=== PATIENT | male | born 1940 | race Caucasian/White ===

== ENCOUNTER 2023-06-30 16:24 | Inpatient (IN) ==
--- NOTE | 2023-06-30 16:29 | ED Triage Note ---
Date of Service June 30, 2023 Provider in Triage Author: Enid Préez History of Present Illness This patient was briefly evaluated while in triage. An abbreviated physical exam was performed. This patient is a 82-year-old Male who presents to the ED for evaluation lives at [facility], reportedly fell today was disoriented/confused per son has been having dizzy spells is on Xarelto for cardiac Physical Exam GENERAL: NAD, hard of hearing HEAD: NC/AT CARDIOVASCULAR: RRR RESPIRATORY: CTA ABDOMEN: BS x 4. Nontender to palpation. Initial orders for labs and / or imaging were placed and patient was placed in the waiting area until a bed is available. Please see further documentation for the full ED course.
--- NOTE | 2023-06-30 17:06 | CT Scan Report ---
HEAD CT NONCONTRAST CT DOSE: 1220.06 mGy.cm HISTORY: fall, head injury TECHNIQUE: Multiaxial CT images of the head were performed without the use of intravenous contrast. A utomated exposure control was utilized for this study. A dose lowering technique was utilized adheri ng to the principles of ALARA. Comparison: None. Findings: The paranasal sinuses and mastoid air cells are clear. The calvarium and skull base are int act. There is no mass, hematoma, midline shift, acute infarct. White matter hypodensity is nonspecifi c but suggestive of microvascular ischemic change. The ventricles and sulci demonstrate mild age-rela omari involutional changes. Impression: No acute intracranial abnormality. Atrophy and microvascular ischemic changes. ACT 112: Negative or not required by law. Electronically signed by: Robinson Vázquez M.D. 06/30/2023 5:05 PM
--- NOTE | 2023-06-30 17:12 | CT Scan Report ---
CT OF THE CERVICAL SPINE WITHOUT CONTRAST CLINICAL HISTORY: fall, head injury COMPARISON STUDY: No previous studies for comparison. TECHNIQUE: Helical axial images of the cervical spine were obtained without IV contrast. Sagittal a nd coronal reconstructions were viewed. Automated exposure control was utilized for the study. A do se lowering technique was utilized adhering to the principles of ALARA. FINDINGS: There is reversal of the cervical lordosis. Mild anterolisthesis of C7 on T1 is likely due to facet arthrosis. There is moderate multilevel degenerative disc disease and facet arthrosis within the cervical spine. Craniocervical junction is intact. There is no prevertebral edema. There are a f ew mildly enlarged left lower cervical/supraclavicular lymph nodes. Index node measures 1.4 x 1 cm. IMPRESSION: 1. No acute cervical spine fracture or subluxation. 2. A few mildly enlarged left lower cervical/supraclavicular lymph nodes. These are nonspecific. ACT 112: Negative or not required by law. Electronically signed by: Jem Denise M.D. 06/30/2023 5:10 PM
[2023-06-30 17:39] LABS: Hematocrit (blood only) 39.3 % (42.0-52.0); Mean Corpuscular Hemoglobin 28.7 pg (25.0-34.0); Mean Corpuscular Hgb Conc 33.1 g/dL (32.0-36.0); Mean Corpuscular Volume 86.8 fL (80.0-100.0); Mean Platelet Volume 10.3 fL (9.4-12.4); Platelet Count 191 K/uL (130-400); RDW Coefficient of Variation 14.3 % (11.5-14.5); RDW Standard Deviation 45.4 fL (36.4-46.3); Red Blood Count 4.53 M/uL (4.70-6.10); White Blood Count 18.24 K/ul (4.8-10.8)
[2023-06-30 17:57] LABS: Alanine Aminotransferase 37 U/L (7-52); Albumin Globulin Ratio 1.6 (0.9-2); Albumin Level 4.5 gm/dl (3.4-5.0); Alkaline Phosphatase 63 U/L (34-104); Anion Gap 12 (3-11); Aspartate Aminotransferase 29 U/L (13-39); BUN Creatinine Ratio 21.3 (10-20); Basophils # (auto) 0.05 K/uL (0.00-0.20); Basophils % (auto) 0.3 %; Bilirubin,Total 1.5 mg/dl (0.2-1.0); Blood Urea Nitrogen 20 mg/dl (6-23); Calcium 9.6 mg/dl (8.6-10.3); Carbon Dioxide 24 mmol/L (21-32); Chloride 101 mmol/L (98-107); Eosinophils # (auto) 0.01 K/uL (0.00-0.50); Eosinophils % (auto) 0.1 %; Est GFR (African American) 85.9 ml/min; Est GFR (Non-African American) 74.2 ml/min; Globulin 2.9 gm/dl (2.5-4.0); Glucose 124 mg/dl (70-99(Fasting)); Immature Granulocytes # (auto) 0.24 K/uL (0.01-0.20); Immature Granulocytes % (auto) 1.3 %; Lymphocytes # (auto) 0.33 K/uL (1.20-3.40); Lymphocytes % (auto) 1.8 %; Monocytes # (auto) 0.86 K/uL (0.11-0.59); Monocytes % (auto) 4.7 %; Neutrophils # (auto) 16.75 K/uL (1.40-6.50); Neutrophils % (auto) 91.8 %; Potassium 3.2 mmol/L (3.5-5.1); Sodium 137 mmol/L (136-145); Total Protein 7.4 gm/dl (6.0-8.3)
[2023-06-30 18:03] LABS: Troponin I High Sensitivity 16.1 pg/ml (0-20)
[2023-06-30 18:06] LABS: INR 1.1 (0.9-1.1); Partial Thromboplastin Ratio 0.9; Partial Thromboplastin Time 26 Seconds (21-31); Prothrombin Time 11.8 Seconds (9.0-12.0)
--- NOTE | 2023-06-30 18:39 | Emergency Department Note ---
Impression & Plan UTI (urinary tract infection), Leukocytosis, Hypokalemia, Fall, AMS (altered mental status) ED Provider Note NAME: ELIZABET FINN AGE: 82 SEX: M : 1940 ARRIVES VIA: Walk-In INFORMANT: Patient ED PROVIDER(S): Quang Garrison DO CHIEF COMPLAINT: fall HPI: Patient is an 82-year-old male who presents to the ER following a mechanical fall per his report. He notes he was walking around the [place] as he normally has a typical path that he follows. He notes he had to go to the bathroom as the water had been shut off. He was in a little vargas and he lost his balance and fell. He was not dizzy or lightheaded. He had no chest pain or shortness of breath. Per report he was a little dazed as he did hit his head and was confused. This has cleared up a fair amount but he is still confused. Patient denies any headache or change in vision. He admits to taking a blood thinner. No chest pain or shortness of breath. No belly pain. No nausea, vomiting, or diarrhea. No dysuria, urgency, or frequency. No other exacerbating or remitting factors. No cough or congestion. No upper or upper story symptoms. Son gives additional history that he is still little confused currently ADDITIONAL HISTORY OBTAINED: Per HPI Chronic Medical/Social Conditions Affecting Care: Per HPI PAST MEDICAL HISTORY:See Below PAST SURGICAL HISTORY:See Below FAMILY HISTORY:See Below SOCIAL HISTORY:See Below HOME MEDICATIONS:See Below ALLERGIES:See Below VITALS:See Below PHYSICAL EXAMINATION: GENERAL: Sitting up in bed, alert, well appearing, well nourished, no distress, non-toxic EYE EXAM: normal conjunctiva. PERRL and EOM's grossly intact. OROPHARYNX: no exudate, no erythema, lips, buccal mucosa, and tongue normal and mucous membranes are moist NECK: supple, no nuchal rigidity, no adenopathy, non-tender LUNGS: Clear to auscultation. Normal chest wall mechanics HEART: no murmurs, S1 normal and S2 normal ABDOMEN: abdomen soft, non-tender, normo-active bowel sounds, no masses, no rebound or guarding. BACK: Back is symmetrical on inspection and there is no deformity, no midline tenderness, no CVA tenderness. UPPER EXTREMITIES: upper extremities are grossly normal. LOWER EXTREMITIES: No pitting edema. NEURO EXAM: Normal sensorium-oriented to person place and time, cranial nerves II-XII intact, normal speech, no weakness of arms, no weakness of legs. No drift. Finger to nose intact. Gross sensation intact. Ambulates without difficulty MEDICAL DECISION MAKING: Patient is an 82-year-old male who presents ER for the above-stated complaint. He is brought in by son who is present at bedside. IV was established blood work is obtained. Labs show leukocytosis of 18,000. Mild anemia. INR unremarkable. BMP with mild hypokalemia 3.2. LFTs and troponin were negative. UA is consistent with UTI. He was given IV fluids and IV Rocephin. With the confusion earlier, fall and UTI with a leukocytosis I discussed the case with the hospitalist for further evaluation management treatment. CT of the head and cervical spine was unremarkable. He denies any other complaints. Chest x-ray was clean Consults/Care Managements Discussions: Per [facility] Triage Nursing notes reviewed. Limited review of prior medical records performed Vital Signs: reviewed and remarkable for no significant abnormalities Differential diagnosis: Differential diagnosis includes etiologies such as sepsis, UTI, pneumonia, metabolic, electrolyte abnormalities, cardiac sources, intracerebral event, toxicologic, neurological, as well as others were entertained. ER treatment provided: See below Diagnostics interpreted by me include EKG and cardiac monitoring as listed below: -Cardiac Monitoring: An order was placed for continuous cardiac monitoring. The monitor shows a rate of 70 with sinus rhythm. -ECG: Atrial sensed ventricularly paced rate 89 Right axis Right bundle branch block QTc 493 -Laboratory studies:Interpreted by me as stated above in MDM and shown below. Imaging studies: Xrays: As interpreted by me: Portable AP upright 1 view of the chest shows no focal infiltrate CTs show: CT head and cervical spine is unremarkable Procedures:none Critical Care: None Past Med/Surg History Medical History (Updated 06/30/23 @ 22:03 by Quang Garrison DO) Pacemaker History of tobacco use Atonic bladder HTN (hypertension) LILLIAM (obstructive sleep apnea) HLD (hyperlipidemia) Paroxysmal atrial fibrillation Surgical History (Updated 06/30/23 @ 20:17 by Maria Antonia Clement PA-C) S/P repair of inguinal hernia History of bilateral knee replacement Social History Smoking Status: Unknown if ever smoked Preferred Language: Cymro Feels Safe at Home: Yes Allergies Allergies Allergy/AdvReac Type Severity Reaction Status Date / Time No Known Allergies Allergy Verified 06/30/23 19:43 Home Meds Home Medications Medication Instructions Recorded Confirmed amlodipine 5 mg tablet 5 mg PO QAM 06/30/23 06/30/23 atorvastatin 10 mg tablet 10 mg PO QAM 06/30/23 06/30/23 carvedilol 25 mg tablet 25 mg PO BID 06/30/23 06/30/23 cyanocobalamin (vitamin B-12) 1,000 mcg PO DAILY 06/30/23 06/30/23 1,000 mcg tablet (Vitamin B-12) docusate sodium 100 mg capsule 100 mg PO BID 06/30/23 06/30/23 furosemide 40 mg tablet 40 mg PO QAM 06/30/23 06/30/23 losartan 100 mg tablet 100 mg PO QAM 06/30/23 06/30/23 magnesium 200 mg tablet 200 mg PO DAILY 06/30/23 06/30/23 multivitamin 1 tab PO DAILY 06/30/23 06/30/23 rivaroxaban 20 mg tablet (Xarelto) 20 mg PO QAM 06/30/23 06/30/23 Results & Data (ED) Vital Signs Vital Signs - 24 hr 06/30/23 16:28 06/30/23 19:26 06/30/23 19:26 Temperature 36.5 C Temperature Source Temporal Artery Scan Pulse Rate - Lying Pulse Rate - Sitting Pulse Rate - Standing Pulse Rate 90 89 92 H Pulse Rate from SpO2 Sensor 91 H Respiratory Rate 19 13 Respiratory Effort / Characteristics Non-Labored Spontaneous Respiratory Depth Normal Respiratory Pattern Regular Blood Pressure - Lying Blood Pressure - Sitting Blood Pressure- Standing Blood Pressure 150/79 H Blood Pressure Mean 102 Pulse Oximetry 92 94 Oxygen Delivery Method Room Air Oxygen Flow Rate Sepsis Recent Fever Within 48 Hours No Sepsis New/Unexplained Change in Mental Status N/A Sepsis Action Taken by Nursing No Action Required 06/30/23 19:26 06/30/23 19:27 06/30/23 19:27 Temperature Temperature Source Pulse Rate - Lying Pulse Rate - Sitting Pulse Rate - Standing Pulse Rate 87 Pulse Rate from SpO2 Sensor 85 Respiratory Rate 20 Respiratory Effort / Characteristics Respiratory Depth Respiratory Pattern Blood Pressure - Lying Blood Pressure - Sitting Blood Pressure- Standing Blood Pressure 160/79 H 149/77 H Blood Pressure Mean 95 91 Pulse Oximetry 93 Oxygen Delivery Method Oxygen Flow Rate Sepsis Recent Fever Within 48 Hours Sepsis New/Unexplained Change in Mental Status Sepsis Action Taken by Nursing 06/30/23 19:28 06/30/23 19:28 06/30/23 19:30 Temperature Temperature Source Pulse Rate - Lying Pulse Rate - Sitting Pulse Rate - Standing Pulse Rate 94 H 90 Pulse Rate from SpO2 Sensor 93 H 85 Respiratory Rate 20 17 Respiratory Effort / Characteristics Respiratory Depth Respiratory Pattern Blood Pressure - Lying Blood Pressure - Sitting Blood Pressure- Standing Blood Pressure 114/72 Blood Pressure Mean 79 Pulse Oximetry 93 94 Oxygen Delivery Method Oxygen Flow Rate Sepsis Recent Fever Within 48 Hours Sepsis New/Unexplained Change in Mental Status Sepsis Action Taken by Nursing 06/30/23 19:34 06/30/23 19:34 06/30/23 19:34 Temperature Temperature Source Pulse Rate - Lying 91 H Pulse Rate - Sitting 90 Pulse Rate - Standing 93 H Pulse Rate Pulse Rate from SpO2 Sensor Respiratory Rate Respiratory Effort / Characteristics Respiratory Depth Respiratory Pattern Blood Pressure - Lying 160/79 H Blood Pressure - Sitting 149/77 H Blood Pressure- Standing 114/72 Blood Pressure Blood Pressure Mean Pulse Oximetry 96 96 Oxygen Delivery Method Room Air Room Air Oxygen Flow Rate 0 Sepsis Recent Fever Within 48 Hours Sepsis New/Unexplained Change in Mental Status Sepsis Action Taken by Nursing 06/30/23 19:40 06/30/23 19:50 06/30/23 20:00 Temperature Temperature Source Pulse Rate - Lying Pulse Rate - Sitting Pulse Rate - Standing Pulse Rate 86 83 80 Pulse Rate from SpO2 Sensor 86 83 80 Respiratory Rate 21 23 21 Respiratory Effort / Characteristics Respiratory Depth Respiratory Pattern Blood Pressure - Lying Blood Pressure - Sitting Blood Pressure- Standing Blood Pressure Blood Pressure Mean Pulse Oximetry 95 96 95 Oxygen Delivery Method Room Air Oxygen Flow Rate Sepsis Recent Fever Within 48 Hours Sepsis New/Unexplained Change in Mental Status Sepsis Action Taken by Nursing 06/30/23 20:10 06/30/23 20:20 06/30/23 20:30 Temperature Temperature Source Pulse Rate - Lying Pulse Rate - Sitting Pulse Rate - Standing Pulse Rate 84 79 82 Pulse Rate from SpO2 Sensor Respiratory Rate 20 23 20 Respiratory Effort / Characteristics Respiratory Depth Respiratory Pattern Blood Pressure - Lying Blood Pressure - Sitting Blood Pressure- Standing Blood Pressure Blood Pressure Mean Pulse Oximetry Oxygen Delivery Method Oxygen Flow Rate Sepsis Recent Fever Within 48 Hours Sepsis New/Unexplained Change in Mental Status Sepsis Action Taken by Nursing 06/30/23 20:40 06/30/23 20:50 06/30/23 21:00 Temperature Temperature Source Pulse Rate - Lying Pulse Rate - Sitting Pulse Rate - Standing Pulse Rate 79 78 82 Pulse Rate from SpO2 Sensor Respiratory Rate 22 26 H 23 Respiratory Effort / Characteristics Respiratory Depth Respiratory Pattern Blood Pressure - Lying Blood Pressure - Sitting Blood Pressure- Standing Blood Pressure Blood Pressure Mean Pulse Oximetry Oxygen Delivery Method Oxygen Flow Rate Sepsis Recent Fever Within 48 Hours Sepsis New/Unexplained Change in Mental Status Sepsis Action Taken by Nursing 06/30/23 21:10 06/30/23 21:11 06/30/23 21:11 Temperature Temperature Source Pulse Rate - Lying Pulse Rate - Sitting Pulse Rate - Standing Pulse Rate 81 82 Pulse Rate from SpO2 Sensor Respiratory Rate 22 23 Respiratory Effort / Characteristics Respiratory Depth Respiratory Pattern Blood Pressure - Lying Blood Pressure - Sitting Blood Pressure- Standing Blood Pressure 144/71 H Blood Pressure Mean 102 Pulse Oximetry Oxygen Delivery Method Oxygen Flow Rate Sepsis Recent Fever Within 48 Hours Sepsis New/Unexplained Change in Mental Status Sepsis Action Taken by Nursing 06/30/23 21:20 06/30/23 21:30 06/30/23 21:40 Temperature Temperature Source Pulse Rate - Lying Pulse Rate - Sitting Pulse Rate - Standing Pulse Rate 76 81 77 Pulse Rate from SpO2 Sensor Respiratory Rate 20 21 20 Respiratory Effort / Characteristics Respiratory Depth Respiratory Pattern Blood Pressure - Lying Blood Pressure - Sitting Blood Pressure- Standing Blood Pressure Blood Pressure Mean Pulse Oximetry Oxygen Delivery Method Oxygen Flow Rate Sepsis Recent Fever Within 48 Hours Sepsis New/Unexplained Change in Mental Status Sepsis Action Taken by Nursing Laboratory Data 06/30/23 17:20 06/30/23 17:20 Lab Results 06/30/23 06/30/23 Range/Units 17:20 18:36 WBC 18.24 H (4.8-10.8) K/ul RBC 4.53 L (4.70-6.10) M/uL Hgb 13.0 L (14.0-18.0) g/dl Hct 39.3 L (42.0-52.0) % MCV 86.8 (80.0-100.0) fL MCH 28.7 (25.0-34.0) pg MCHC 33.1 (32.0-36.0) g/dL RDW Std Deviation 45.4 (36.4-46.3) fL RDW Coeff of Lizzie 14.3 (11.5-14.5) % Plt Count 191 (130-400) K/uL MPV 10.3 (9.4-12.4) fL Immature Gran % (Auto) 1.3 % Neut % (Auto) 91.8 % Lymph % (Auto) 1.8 % [place] % (Auto) 4.7 % Eos % (Auto) 0.1 % Baso % (Auto) 0.3 % Neut # (Auto) 16.75 H (1.40-6.50) K/uL Lymph # (Auto) 0.33 L (1.20-3.40) K/uL [place] # (Auto) 0.86 H (0.11-0.59) K/uL Eos # (Auto) 0.01 (0.00-0.50) K/uL Baso # (Auto) 0.05 (0.00-0.20) K/uL Immature Gran # (Auto) 0.24 H (0.01-0.20) K/uL PT 11.8 (9.0-12.0) Seconds INR 1.1 (0.9-1.1) APTT 26 (21-31) Seconds PTT Ratio 0.9 Sodium 137 (136-145) mmol/L Potassium 3.2 L (3.5-5.1) mmol/L Chloride 101 (98-107) mmol/L Carbon Dioxide 24 (21-32) mmol/L Anion Gap 12 H (3-11) BUN 20 (6-23) mg/dl Creatinine 0.94 (0.6-1.4) mg/dl Est Cr Clr Drug Dosing Not Reportable Est GFR ( Amer) 85.9 ml/min Est GFR (Non-Af Amer) 74.2 ml/min BUN/Creatinine Ratio 21.3 H (10-20) Glucose 124 H (70-99(Fasting)) mg/dl Calcium 9.6 (8.6-10.3) mg/dl Total Bilirubin 1.5 H (0.2-1.0) mg/dl AST 29 (13-39) U/L ALT 37 (7-52) U/L Alkaline Phosphatase 63 (34-104) U/L Troponin I High Sens 16.1 (0-20) pg/ml Total Protein 7.4 (6.0-8.3) gm/dl Albumin 4.5 (3.4-5.0) gm/dl Globulin 2.9 (2.5-4.0) gm/dl Albumin/Globulin Ratio 1.6 (0.9-2) Urine Color Yellow Urine Appearance Cloudy A (Clear) Urine pH 7.5 (4.5-7.5) Ur Specific [place] 1.012 (1.000-1.030) Urine Protein Negative (Negative) Urine Glucose (UA) Negative (Negative) Urine Ketones 1+ H (Negative) Urine Blood Trace H (Negative) Urine Nitrite Negative (Negative) Urine Bilirubin Negative (Negative) Urine Urobilinogen Negative (Negative) Ur Leukocyte Esterase 3+ H (Negative) Urine WBC (Auto) >30 H (0-5) /hpf Urine RBC (Auto) 0-4 (0-4) /hpf U Hyaline Cast (Auto) 0 (0-5) /lpf U Epithel Cells (Auto) 5-10 H (0-5) /lpf Urine Bacteria (Auto) Negative (Negative) Administered Medications Discontinued Medications Ceftriaxone Sodium (Rocephin) 2,000 mg in 50 mls @ 100 mls/hr IV NOW STA Stop: 06/30/23 19:47 Last Infusion: 06/30/23 20:17 Dose: Infused Documented By: Admin: 06/30/23 19:31 Dose: 100 mls/hr Documented By: ILEANA Potassium Chloride (Potassium Chloride Crtab 20 Meq Tabcr) 40 meq PO NOW STA Stop: 06/30/23 20:20 Last Admin: 06/30/23 21:09 Dose: 40 meq Documented By: ILEANA Imaging Data Radiologist's Impression: Cervical Spine CT 06/30/23 16:32 CT OF THE CERVICAL SPINE WITHOUT CONTRAST CLINICAL HISTORY: fall, head injury COMPARISON STUDY: No previous studies for comparison. TECHNIQUE: Helical axial images of the cervical spine were obtained without IV contrast. Sagittal and coronal reconstructions were viewed. Automated exposure control was utilized for the study. A dose lowering technique was utilized adhering to the principles of ALARA. FINDINGS: There is reversal of the cervical lordosis. Mild anterolisthesis of C7 on T1 is likely due to facet arthrosis. There is moderate multilevel degenerative disc disease and facet arthrosis within the cervical spine. Craniocervical junction is intact. There is no prevertebral edema. There are a few mildly enlarged left lower cervical/supraclavicular lymph nodes. Index node measures 1.4 x 1 cm. IMPRESSION: 1. No acute cervical spine fracture or subluxation. 2. A few mildly enlarged left lower cervical/supraclavicular lymph nodes. These are nonspecific. ACT 112: Negative or not required by law. Electronically signed by: Jem Denise M.D. 06/30/2023 5:[address] 06/30/23 16:[address] DOSE: 1220.06 mGy.cm HISTORY: fall, head injury TECHNIQUE: Multiaxial CT images of the head were performed without the use of intravenous contrast. Automated exposure control was utilized for this study. A dose lowering technique was utilized adhering to the principles of ALARA. Comparison: None. Findings: The paranasal sinuses and mastoid air cells are clear. The calvarium and skull base are intact. There is no mass, hematoma, midline shift, acute infarct. White matter hypodensity is nonspecific but suggestive of microvascular ischemic change. The ventricles and sulci demonstrate mild age-related involutional changes. Impression: No acute intracranial abnormality. Atrophy and microvascular ischemic changes. ACT 112: Negative or not required by law. Electronically signed by: Robinson Vázquez M.D. 06/30/2023 5:05 PM Discharge Plan Visit Data Chief Complaint: Altered Mental Status Stated Complaint: CONFUSED, PASSED OUT ED Provider: Quang Garrison Discharge Problem: UTI (urinary tract infection), Leukocytosis, Hypokalemia, Fall, AMS (altered mental status) Forms Stand Alone Forms: [facility] Prescriptions Prescriptions: No Action furosemide 40 mg tablet 40 mg PO QAM carvedilol 25 mg tablet 25 mg PO BID atorvastatin 10 mg tablet 10 mg PO QAM amlodipine 5 mg tablet 5 mg PO QAM losartan 100 mg tablet 100 mg PO QAM Xarelto 20 mg tablet 20 mg PO QAM multivitamin Tablet 1 tab PO DAILY cyanocobalamin (vitamin B-12) [Vitamin B-12] 1,000 mcg Tablet 1,000 mcg PO DAILY docusate sodium 100 mg Capsule 100 mg PO BID magnesium 200 mg Tablet 200 mg PO DAILY Referrals Referrals: PCP,NO [Physician] - Discharge Problem: UTI (urinary tract infection) Qualifiers: Urinary tract infection type: site unspecified Hematuria presence: with hematuria Qualified Code(s): N39.0 - Urinary tract infection, site not specified ; R31.9 - Hematuria, unspecified Leukocytosis Qualifiers: Leukocytosis type: unspecified Qualified Code(s): D72.829 - Elevated white blood cell count, unspecified Fall Qualifiers: Encounter type: initial encounter Qualified Code(s): W19.XXXA - Unspecified fall, initial encounter AMS (altered mental status) Qualifiers: Altered mental status type: unspecified Qualified Code(s): R41.82 - Altered mental status, unspecified
[2023-06-30 19:07] LABS: Appearance Urine Cloudy (Clear); Bacteria Urine Automated Negative (Negative); Bilirubin Urine Negative (Negative); Blood Urine Trace (Negative); Cast Urine Automated 0 /lpf (0-5); Color Urine Yellow; Glucose Urine UA Negative (Negative); Ketones Urine 1+ (Negative); Leukocyte Esterase Urine 3+ (Negative); Nitrite Urine Negative (Negative); Protein Urine Negative (Negative); RBC Urine Automated 0-4 /hpf (0-4); Specific Gravity Urine 1.012 (1.000-1.030); Urobilinogen Urine Negative (Negative); WBC Urine Automated >30 /hpf (0-5); pH Urine 7.5 (4.5-7.5)
[2023-06-30] MEDS ORDERED: cefTRIAXone SODIUM 2,000 MG/50 ML BAG IV STA (19:18)
[2023-06-30] MEDS ORDERED: POTASSIUM CHLORIDE CRTAB 20 MEQ TABCR PO STA (20:19)
--- NOTE | 2023-06-30 20:34 | History & Physical Report ---
Date of Service June 30, 2023 Assessment & Plan (1) UTI (urinary tract infection): (2) Altered mental status, unspecified: (3) Atonic bladder: Plan: -Admit to med surg with tele -Patient's straight caths at home 6 times per day, this increases risk for UTI -UA appears suspicious for infection, cloudy appearance to the urine with trace blood, 3+ leuk esterase, > 30WBC, and only 5-10 epis. Await urine cultures and adjust antibiotics -WBC 15.2, afebrile but patient is reporting subjective chills - (4) Fall: Plan: - CT head was negative for acute changes, shows atrophy and microvascular ischemic changes -PT/OT consults - Sounds to be mechanical fall no presyncopal symptoms, no LOC, no injury is visible on exam (5) Paroxysmal atrial fibrillation: Plan: -History of such, chronic, stable -Continue on Xarelto - (6) Pacemaker: Plan: - Hx of such, reports has 2 months until battery replacement already scheduled - Follows with Dr. Ngo as outpatient per [facility] review (7) Hypokalemia: Plan: - K 3.2 on admission, replete - Trend with am labs (8) HTN (hypertension): Plan: - BP stable, continue Lasix 40 mg daily, losartan, amlodipine - Stable (9) HLD (hyperlipidemia): Plan: - Continue atorvastatin 10 mg daily -Chronic, stable (10) LILLIAM (obstructive sleep apnea): Plan: - History of such, uses one at [facility], states it doesn't fit that well, will order cpap here DVT ppx: scds Lines: 2 PIV FEN/GI: Regular diet, easy to chew CODE: DNR/DNI Dispo: From home, likely to remain in the hospital x 1-2 days History of Present Illness Primary Care Provider: Ana Maria Rivera MD This is an 82 yo M with PMhx of PAF on xarelto, HTN, HLD, atonic bladder with straight cath, pacemaker, who presents from [facility] after a fall. . Pt was walking laps inside the buildings as part of normal exercise regimen today at [facility] and while he was walking quickly, he slipped on a piece of carpet and fell backwards and hit the back of his head. Denies presyncopal sx. He admits to having chills but denies fever. Staff reported disorientation vs dazed after his fall, he was having trouble standing, and had difficult getting into his sons car. Pts son, Alessio, present at bedside supports the history. Pt notes having atonic bladder where he straight caths 6x daily, and has for many years. He is surprised to hear that he has a UTI today with UA reports. Pt has had UTI in the past but has many years since then, but traditionally there had been confusion as one of the first signs of a UTI. Pt notes intermittent dysuria and decreased urine outs at night, but hasn't noticed anything today like that. He feels well currently. Denies any pain. Pt is able to recall his home medications and dosages without difficulty. PT reports feeling psychologically depressed since last September 2022, and feels he's had a lot of trouble since then. Follows with a therapist weekly as outpatient. He admits to getting worked up at times, and says he tried to get things done very quickly, moves quickly. bumped her head prior to passing away, so feels this is adding to his level of anxiety. He moved into the area from [place] to be closer to his son's family within months after this huge life change. Allergies Allergy/AdvReac Type Severity Reaction Status Date / Time No Known Allergies Allergy Verified 06/30/23 19:43 Home Medications Medication Instructions Recorded Confirmed Type amlodipine 5 mg tablet 5 mg PO QAM 06/30/23 06/30/23 History atorvastatin 10 mg tablet 10 mg PO QAM 06/30/23 06/30/23 History carvedilol 25 mg tablet 25 mg PO BID 06/30/23 06/30/23 History cyanocobalamin (vitamin B-12) 1,000 mcg PO DAILY 06/30/23 06/30/23 History 1,000 mcg tablet (Vitamin B-12) docusate sodium 100 mg capsule 100 mg PO BID 06/30/23 06/30/23 History furosemide 40 mg tablet 40 mg PO QAM 06/30/23 06/30/23 History losartan 100 mg tablet 100 mg PO QAM 06/30/23 06/30/23 History magnesium 200 mg tablet 200 mg PO DAILY 06/30/23 06/30/23 History multivitamin 1 tab PO DAILY 06/30/23 06/30/23 History rivaroxaban 20 mg tablet (Xarelto) 20 mg PO QAM 06/30/23 06/30/23 History Past Med/Surg History Medical History (Updated 06/30/23 @ 21:22 by Oanh Suarez, DO) Pacemaker History of tobacco use Atonic bladder HTN (hypertension) LILLIAM (obstructive sleep apnea) HLD (hyperlipidemia) Paroxysmal atrial fibrillation Surgical History (Updated 06/30/23 @ 20:17 by Maria Antonia Clement PA-C) S/P repair of inguinal hernia History of bilateral knee replacement Social History Smoking Status: Unknown if ever smoked Preferred Language: Kazakh Feels Safe at Home: Yes Review of Systems Review of Systems: Constitutional: No fever, sweats, +chills Eyes: No diplopia, no worsening or blurred vision ENT: normal hearing, no trouble swallowing, + hard of hearing, has hearing aids Respiratory: No cough, sputum, dyspnea at rest or on exertion Cardiovascular: No chest pain, tightness or palpitations Abdomen: No pain, nausea, vomiting, diarrhea or constipation : atonic bladder, straight cath 6x per day Musculoskeletal: No joint pain, calf pain, swelling Neurologic: No weakness, numbness/tingling, or balance problems Psychiatric: + depression Skin: No rash or itch Physical Exam Physical Exam: General: awake, alert, no apparent distress, white, male Head: Normocephalic, atraumatic ENT: PERRL, EOMI, no pharyngeal exudate, mucous membranes moist Chest: Clear to auscultation, on room air, no adventitious breath sounds Cardiac: Regular rate and rhythm, + pacemaker Left chest wall, no murmur, no JVD, normal peripheral pulses, good capillary refill Abdominal: NABS x 4 quadrants, soft, nondistended, nontender to palpation, no rebound or guarding Extremities: Normal inspection, no peripheral edema or erythema, calfs nontender to palpation Psych: Normal mood and affect Neuro: AAO x 3, strength intact bilaterally and rated 5/5, no motor deficits, speech is clear, no peripheral sensory deficits Results & Data Results & Data Vital Signs (Past 12 Hours) Vital Signs Temp Pulse Resp BP Pulse Ox O2 Del Method O2 Flow Rate 06/30/23 19:34 96 Room Air 06/30/23 19:34 96 Room Air 0 06/30/23 19:26 89 06/30/23 16:28 36.5 C 90 19 150/79 H 92 Room Air Laboratory Results 06/30/23 18:36 Urine Culture - Pending Urine,Clean Catch 06/30/23 06/30/23 18:36 17:20 WBC 18.24 H RBC 4.53 L Hgb 13.0 L Hct 39.3 L MCV 86.8 MCH 28.7 MCHC 33.1 RDW Std Deviation 45.4 RDW Coeff of Lizzie 14.3 Plt Count 191 MPV 10.3 Immature Gran % (Auto) 1.3 Neut % (Auto) 91.8 Lymph % (Auto) 1.8 [place] % (Auto) 4.7 Eos % (Auto) 0.1 Baso % (Auto) 0.3 Neut # (Auto) 16.75 H Lymph # (Auto) 0.33 L [place] # (Auto) 0.86 H Eos # (Auto) 0.01 Baso # (Auto) 0.05 Immature Gran # (Auto) 0.24 H PT 11.8 INR 1.1 APTT 26 PTT Ratio 0.9 Sodium 137 Potassium 3.2 L Chloride 101 Carbon Dioxide 24 Anion Gap 12 H BUN 20 Creatinine 0.94 Est Cr Clr Drug Dosing Not Reportable Est GFR ( Amer) 85.9 Est GFR (Non-Af Amer) 74.2 BUN/Creatinine Ratio 21.3 H Glucose 124 H Calcium 9.6 Total Bilirubin 1.5 H AST 29 ALT 37 Alkaline Phosphatase 63 Troponin I High Sens 16.1 Total Protein 7.4 Albumin 4.5 Globulin 2.9 Albumin/Globulin Ratio 1.6 Urine Color Yellow Urine Appearance Cloudy A Urine pH 7.5 Ur Specific [place] 1.012 Urine Protein Negative Urine Glucose (UA) Negative Urine Ketones 1+ H Urine Blood Trace H Urine Nitrite Negative Urine Bilirubin Negative Urine Urobilinogen Negative Ur Leukocyte Esterase 3+ H Urine WBC (Auto) >30 H Urine RBC (Auto) 0-4 U Hyaline Cast (Auto) 0 U Epithel Cells (Auto) 5-10 H Urine Bacteria (Auto) Negative Diagnostic Findings Cervical Spine CT 06/30/23 16:32 CT OF THE CERVICAL SPINE WITHOUT CONTRAST CLINICAL HISTORY: fall, head injury COMPARISON STUDY: No previous studies for comparison. TECHNIQUE: Helical axial images of the cervical spine were obtained without IV contrast. Sagittal and coronal reconstructions were viewed. Automated exposure control was utilized for the study. A dose lowering technique was utilized adhering to the principles of ALARA. FINDINGS: There is reversal of the cervical lordosis. Mild anterolisthesis of C7 on T1 is likely due to facet arthrosis. There is moderate multilevel degenerative disc disease and facet arthrosis within the cervical spine. Craniocervical junction is intact. There is no prevertebral edema. There are a few mildly enlarged left lower cervical/supraclavicular lymph nodes. Index node measures 1.4 x 1 cm. IMPRESSION: 1. No acute cervical spine fracture or subluxation. 2. A few mildly enlarged left lower cervical/supraclavicular lymph nodes. These are nonspecific. ACT 112: Negative or not required by law. Electronically signed by: Jem Denise M.D. 06/30/2023 5:[address] 06/30/23 16:[address] DOSE: 1220.06 mGy.cm HISTORY: fall, head injury TECHNIQUE: Multiaxial CT images of the head were performed without the use of intravenous contrast. Automated exposure control was utilized for this study. A dose lowering technique was utilized adhering to the principles of ALARA. Comparison: None. Findings: The paranasal sinuses and mastoid air cells are clear. The calvarium and skull base are intact. There is no mass, hematoma, midline shift, acute infarct. White matter hypodensity is nonspecific but suggestive of microvascular ischemic change. The ventricles and sulci demonstrate mild age-related involutional changes. Impression: No acute intracranial abnormality. Atrophy and microvascular ischemic changes. ACT 112: Negative or not required by law. Electronically signed by: Robinson Vázquez M.D. 06/30/2023 5:05 PM Code Status & VTE Plan Code Status DNR/DNI - discussed with pt at bedside VTE Prophylaxis Plan VTE Prophylaxis will be ordered: Yes Supervising Physician Co-Signing Physician Notes I have seen and examined the patient and have discussed the case with the provider above. I agree with the assessment and plan as stated. Patient is an 82-year-old man who recently moved to [facility] within the last year who suffered a mechanical fall hitting his head on [facility]. He and son also admit to some chills and send reports he was disoriented and somewhat dazed after the fall. The patient self catheterizes his urine for history of neurogenic bladder for over 20 years per his report. Some intermittent UTI symptoms are present. On exam he is hemodynamically stable and afebrile and tolerating p.o. He is mentating at baseline and clearly can give a very good history. He has good insight into his medical issues including anxiety secondary to bereavement from the loss of his last September. He is set up for counseling to help with this. Son who is at bedside and assist with history also reports the anxiety can get to the point where he is overwhelmed and may have contributed to symptoms today. The patient has a normal abdomen exam with no distention, soft and no tenderness. There is no CVA tenderness to palpation. Cardiac exam reveals S1- S2 heard with regular rate and rhythm and no murmurs gallops or rubs. He has a pacemaker to the left anterior chest. Lungs are clear to auscultation bilaterally. No gross focal neuromuscular deficits. Workup reveals an elevated white blood cell count of 18,000 with a left shift, potassium is 3.2 with an otherwise normal chemistry panel. Bilirubin slightly elevated at 1.5. Urine dipstick reveals a cloudy appearance to the urine with trace blood, 3+ leuk esterase, greater than 30 white blood cells and only 5-10 epis. No evidence of bacteria is present. Urine culture is pending. He received 1 dose of Rocephin. Will continue this out of concern for possible UTI. Will continue self-catheterization which patient reports he does [address] head was negative for any bleed. Will continue with Xarelto per home regimen. PT/OT consultations, likely transfer back to [facility] within 1 to 2 days pending culture results and clinical improvement. DO Erick (1) UTI (urinary tract infection) Hematuria presence: without hematuria Urinary tract infection type: acute cystitis Qualified Code(s): N30.00 - Acute cystitis without hematuria (4) Fall Encounter type: initial encounter Qualified Code(s): W19.XXXA - Unspecified fall, initial encounter (8) HTN (hypertension) Hypertension type: unspecified Qualified Code(s): I10 - Essential (primary) hypertension (9) HLD (hyperlipidemia) Hyperlipidemia type: unspecified Qualified Code(s): E78.5 - Hyperlipidemia, unspecified
[2023-06-30] MEDS ORDERED: POLYETHYLENE (MIRALAX) 17 GM PACK PO PRN (22:50)
[2023-06-30] MEDS ORDERED: ACETAMINOPHEN 325 MG TAB PO PRN (22:50)
--- OUTSIDE RECORDS SUMMARY | 2023-07-01 04:11 | External Medical Summary ---
Author Name Unknown Address Unknown Organization [id number]:[facility] [place] [place] [address] Laboratory Report Ordering Provider Test Date Status MATTHEW MONTALVO 06/23/2023 10:35:55 Final Observation Date Value Abnormality Reference (Units ) Status BUN 06/23/2023 10:35:55 16 6-20 (mg/dL) Final Creatinine 06/23/2023 10:35:55 0.9 0.6-1.2 (mg/dL) Final Glomerular filtration rate/1.73 sq M.predicted [Volume Rate/Area] in Serum, Plasma or Blood by Creatinine-based formula (CKD-EPI) 06/23/2023 10:35:55 84 >=60 (mL/min) Final eGFR is calculated based on the CKD-EPI 2020 equation SODIUM 06/23/2023 10:35:55 137 135-146 (m mol/L) Final Potassium 06/23/2023 10:35:55 4.3 3.5-5.1 (m mol/L) Final Cl 06/23/2023 10:35:55 100 98-107 (mm ol/L) Final CO2 06/23/2023 10:35:55 29 22-32 (mmo l/L) Final Anion gap 06/23/2023 10:35:55 8 7-15 (mmol /L) Final Glucose 06/23/2023 10:35:55 91 70-120 (mg /dL) Final Calcium 06/23/2023 10:35:55 9.9 8.4-10.2 ( mg/dL) Final Performing Location [facility] [place] [place] [id number]
--- OUTSIDE RECORDS SUMMARY | 2023-07-01 04:11 | External Medical Summary | Summary of Care ---
Author Name Unknown Organization [facility] Address [address] [place] [address] Phone [phone] Care Team Providers Care Inspector Elevators Name Role Phone Ana Maria Rivera MD Primary Care Provider [phone] Reason for Referral * Precert (Within 10 days (routine)) - Authorized Specialty Diagnoses / Procedures Referred By Contac t Referred To Contact Cardiac Studies Diagnoses Pure hypercholesterolemia Hypertension goal BP (blood pressure) < 140/90 Paroxysmal atrial fibrillation (HCC) Mobitz type II atrioventricular block Status post biventricular pacemaker Procedures ECHO, COMPLETE (2D), TRANS-THORACIC Shaunna Ngo DO [address] [place] [address] Referral ID Status Reason Start Date Expiration Date V isits Requested Visits Authorized [id number] Authorized Precert 06/01/2023 999 999 Reason for Visit * Reason Comments Consultation * Evaluate & Treat - Unlimited Visits (Within 10 days (routine)) - Authorized Specialty Diagnoses / Procedures Referred By Contac t Referred To Contact Cardiovascular Medicine / Cardiology Diagnoses Chronic atrial fibrillation (HCC) Pacemaker Ana Maria Rivera MD [address] [place] [facility] [place] [address] Referral ID Status Reason Start Date Expiration Date Visits Requested Visits Authorized [id number] Authorized Specialty Services Required 3 [id number] Encounter Details Date Type Department Care Team (Latest Contact Info) Description 06/01/2023 1:15 PM EST Office Visit Cardiology, [facility] [address] [place] [address] HuberShaunna, DO [address] [place] [address] Mobitz type II atrioventricular block*; Paroxysmal atrial fibrillation (HCC); Pure hypercholesterolemia; Hypertension goal BP (blood pressure) < 140/90; Status post biventricular pacemaker Allergies No known active allergiesdocumented as of this encounter (statuses as of 06/21/2023) Medications Medication Sig Dispensed Refills Start Date End Date Status B-12 1000 MCG Oral Tablet Disintegrating Take by mouth. 0 Active Multi Vitamin Daily Oral Tablet Take by mouth. 0 Active Docusate Sodium 100 MG Oral Capsule (Stool Softener) Take 1 Capsule by mouth in the morning and 1 Capsule before bedtime. 0 Active Magnesium 200 MG Oral Tablet Chewable Take by mouth. 0 Active amLODIPine Besylate 5 MG Oral Tablet (Norvasc) Take 1 Tablet by mouth in the morning. 90 Tablet 3 3 Active Atorvastatin Calcium 10 MG Oral Tablet (Lipitor)Indications:Pure hypercholesterolemia Take 1 Tablet by mouth in the morning. 90 Tablet 3 3 Active Carvedilol 25 MG Oral Tablet (Coreg) Take 1 Tablet by mouth in the morning and 1 Tablet before bedtime. With food.. 180 Tablet 3 3 Active Furosemide 40 MG Oral Tablet (Lasix) Take 1 Tablet by mouth in the morning. 90 Tablet 3 3 Active Losartan Potassium 100 MG Oral Tablet (Cozaar)Indications:Hyper tension goal BP (blood pressure) < 140/90 Take 1 Tablet by mouth in the morning. 90 Tablet 3 3 Active Xarelto 20 MG Oral Tablet Take 1 Tablet by mouth in the morning. With food.. 90 Tablet 3 3 Active Losartan Potassium 100 MG Oral Tablet (Cozaar) Take 1 Tablet by mouth in the morning. 0 3 06/01/20 23 Discontinu ed(Refill) Xarelto 20 MG Oral Tablet Take 1 Tablet by mouth in the morning. With food.. 0 3 06/01/20 23 Discontinu ed(Refill) Atorvastatin Calcium 10 MG Oral Tablet (Lipitor) Take 1 Tablet by mouth in the morning. 0 3 06/01/20 Discontinu ed(Refill) Carvedilol 25 MG Oral Tablet (Coreg) Take 1 Tablet by mouth in the morning and 1 Tablet before bedtime. With food.. 0 3 06/01/20 Discontinu ed(Refill) Furosemide 40 MG Oral Tablet (Lasix) Take 1 Tablet by mouth in the morning. 0 3 06/01/20 23 Discontinu ed(Refill) documented as of this encounter (statuses as of 06/21/2023) Active Problems Problem Noted Date Diagnosed Date Paroxysmal atrial fibrillation 04/08/2023 Pacemaker 04/08/2023 Atonic bladder 04/08/2023 Pure hypercholesterolemia 04/08/2023 History of melanoma 04/08/2023 Obstructive sleep apnea of adult 04/08/2023 Lower extremity edema 04/08/2023 Essential hypertension 04/08/2023 S/p total knee replacement, bilateral 04/08/2023 documented as of this encounter (statuses as of 06/21/2023) Immunizations Name Administration Dates Next Due COVID-19 mRNA, LNP-s, No Pre serve, 2-Dose Series (Moderna) 05/08/2021,08/16/2020,06/29/2020 Covid-19, Mrna, Lnp-s, Pf, B ivalent, 30 Mcg, IM, 12 yrs and above (Pfizer) 03/24/2022,09/26/2021 Pneumococcal Conjugate Vacc, 13 Valent (Prevnar) 07/26/2015 Pneumococcal Polysaccharide PPV23 (Pneumovax) 06/21/2010,05/22/2010 Pneumococcal Vaccine, Unspec ified Formulation 09/20/2011 Seasonal Influenza, Quadriva lent Hd (Fluzone Hd) 02/24/2023,03/24/2022,02/28/2021 TD - Tetanus/Diptheria (ADULT) 01/29/2010 Varicella Zoster Vaccine (Adult) 10/03/2010 documented as of this encounter Social History Tobacco Use Types Packs/Day Years Used Date Smoking Tobacco: Former Cigarettes Q uit: 1960 Smokeless Tobacco: Never Tobacco Cessation:Counseling Given: Not Answered Alcohol Use Standard Drinks/Week Comments Yes 0 (1 standard drink = 0.6 oz pure alcohol) occasional beer or glass of wine Sex and Gender Information Value Date Recorded Sex Assigned at Male 06/10/2023 5:39 PM EST Gender Identity Male 06/10/2023 5:39 PM EST Sexual Orientation Straight 06/10/2023 5: 39 PM EST Job Start Date Occupation Industry Not on file Not on file Not on file documented as of this encounter Last Filed Vital Signs Vital Sign Reading Time Taken Comments Blood Pressure 126/76 06/01/2023 1:07 PM EST Pulse 76 06/01/2023 1:07 PM EST Temperature - - Respiratory Rate 14 06/01/2023 1:07 PM EST Oxygen Saturation - - Inhaled Oxygen Concentration - - Weight 84.4 kg (186 lb) 06/01/2023 1:07 PM EST Height - - Body Mass Index 25.23 04/27/2023 2:48 PM EST documented in this encounter Patient Instructions * Patient Instructions* Shaunna Ngo DO - 06/01/2023 1:58 PM EST Your medications have been refilled We transferred your remote checks for you pacemaker to our facility-once the battery reaches replacement we will scheduled for the procedure at [facility]-expect to be there for about 3 hours even though the procedure is only 30 minutes I ordered an echocardiogram to be done Your follow up appointment might be with an Catherine calle she is my nurse practitioner seeing myfollow ups but as long as I am not in the OR or off for the day I will pop in to see you as well documented in this encounter Progress Notes * Shaunna Ngo DO - 06/01/2023 1:31 PM EST Subjective Terry Beckham is a 82 year old male. Chief Complaint Patient presents with Consultation Pt referred to EP due to pAF Referring Provider: Dr. Rivera Cardiac Problems: pAF on Xarelto and coreg [id number] (age, HTN) High degree AV block Mobitz Type II with syncopal episodes falling forward hit his face S/p ppm 12/25/2014; then upgraded to BiV in 04/07/2016 due to pacemaker mediated cardiomyopathy (of note the RA lead is a Duable Chinese Sci lead; rest are Velasco) NICM EF after ppm in 2014 went down and then improved in 2017 after pt got an upgrade to biv ppm 03/2016 HTN HLD LILLIAM on CPAP but has been having problems with it-saw sleep medicine in 04/27/2023-they were not aware of the problems HPI: Pt just moved from [place] to [place] after his to move closer to his children who live here in town Pt is trying to adjust with move HE has some leg swelling worse at the end of the day better in the morning He tells me he is having problems with the CPAP he goes to sleep and then wakes up in the middle ofthe night and it is on the floor; or he wakes up in the middle of the night and can't get the mask back on and he does not know what range it should be on PMH: Patient Active Problem List Diagnosis Code Chronic atrial fibrillation (HCC) I48.20 Pacemaker Z95.0 Atonic bladder N31.2 Pure hypercholesterolemia E78.00 History of melanoma Z85.820 Obstructive sleep apnea of adult G47.33 Lower extremity edema R60.0 Essential hypertension I10 S/p total knee replacement, bilateral Z96.653 Current Outpatient Medications Medication Sig Dispense Refill Losartan Potassium 100 MG Oral Tablet (Cozaar) Take 1 Tablet by mouth in the morning. Xarelto 20 MG Oral Tablet Take 1 Tablet by mouth in the morning. With food.. Atorvastatin Calcium 10 MG Oral Tablet (Lipitor) Take 1 Tablet by mouth in the morning. Carvedilol 25 MG Oral Tablet (Coreg) Take 1 Tablet by mouth in the morning and 1 Tablet before bedtime. With food.. Furosemide 40 MG Oral Tablet (Lasix) Take 1 Tablet by mouth in the morning. B-12 1000 MCG Oral Tablet Disintegrating Take by mouth. Multi Vitamin Daily Oral Tablet Take by mouth. Docusate Sodium 100 MG Oral Capsule (Stool Softener) Take 1 Capsule by mouth in the morning and 1 Capsule before bedtime. Magnesium 200 MG Oral Tablet Chewable Take by mouth. amLODIPine Besylate 5 MG Oral Tablet (Norvasc) Take 1 Tablet by mouth in the morning. 90 Tablet 3 No current facility-administered medications for this visit. PMH: pAF on Xarelto and coreg [id number] (age, HTN) High degree AV block Mobitz Type II with syncopal episodes falling forward hit his face S/p ppm 12/25/2014; then upgraded to BiV in 04/07/2016 due to pacemaker mediated cardiomyopathy (of note the RA lead is a boston Sci lead; rest are Velasco) NICM EF after ppm in 2014 went down and then improved in 2017 after pt got an upgrade to biv ppm 03/2016 HTN HLD LILLIAM on CPAP but has been having problems with it-saw sleep medicine in 04/27/2023-they were not aware of the problems Past Surgical History: Procedure Laterality Date ARTHROPLASTY KNEE TOTAL REPAIR INITIAL INGUINAL HERNIA REDUCIBLE AGE 5 OR MORE REPAIR UMBILICAL LESION, SMALL Review of patient's allergies indicates: No Known Allergies FMH: No SCD Social History Socioeconomic History Marital status: Spouse name: Not on file Number of children: Not on file Years of education: Not on file Highest education level: Not on file Occupational History Not on file Tobacco Use Smoking status: Former Types: Cigarettes Quit date: 1960 Years since quittin.9 Smokeless tobacco: Never Substance and Sexual Activity Alcohol use: Yes Comment: occasional beer or glass of wine Drug use: Never Sexual activity: Not on file Other Topics Concern Not on file Social History Narrative Not on file Social Determinants of Health Financial Resource Strain: Not on file Food Insecurity: Not on file Transportation Needs: Not on file Physical Activity: Not on file Stress: Not on file Social Connections: Not on file Intimate Partner Violence: Not on file Housing Stability: Not on file Review of Systems Constitutional: Negative for activity change, chills, fatigue, fever and unexpected weight change. HENT: Positive for hearing loss. Negative for postnasal drip, rhinorrhea and sinus pressure. Eyes: Negative for visual disturbance. +glasses Respiratory: Negative for shortness of breath. Cardiovascular: Positive for leg swelling. Negative for chest pain and palpitations. Gastrointestinal: Negative for blood in stool, constipation, diarrhea, nausea and vomiting. Genitourinary: Negative for dysuria and hematuria. Musculoskeletal: Negative for gait problem. Skin: Negative for rash. Neurological: Negative for dizziness, syncope and light-headedness. Objective BP 126/76 | Pulse 76 | Resp 14 | Wt 84.4 kg (186 lb) | BMI 25.23 kg/m | BSA 2.07 m Physical Exam Vitals and nursing note reviewed. Constitutional: General: He is awake. Appearance: Normal appearance. He is well-developed. HENT: Head: Normocephalic and atraumatic. Eyes: General: No scleral icterus. Extraocular Movements: Extraocular movements intact. Neck: Vascular: Normal carotid pulses. No carotid bruit or JVD. Cardiovascular: Rate and Rhythm: Normal rate and regular rhythm. Pulses: Carotid pulses are 2+ on the right side and 2+ on the left side. Radial pulses are 2+ on the right side and 2+ on the left side. Posterior tibial pulses are 2+ on the right side and 2+ on the left side. Heart sounds: S1 normal and S2 normal. Murmur heard. Pulmonary: Effort: Pulmonary effort is normal. Breath sounds: Normal breath sounds. No decreased breath sounds, wheezing, rhonchi or rales. Chest: Comments: Left pectoral region; ppm site no evidence of threatened erosion Musculoskeletal: Cervical back: Neck supple. Right lower leg: No edema. Left lower leg: No edema. Skin: General: Skin is warm and dry. Neurological: General: No focal deficit present. Mental Status: He is alert and oriented to person, place, and time. Psychiatric: Attention and Perception: Attention normal. Mood and Affect: Mood normal. Speech: Speech normal. Behavior: Behavior normal. Behavior is cooperative. Thought Content: Thought content normal. Cognition and Memory: Cognition normal. Judgment: Judgment normal. RESULTS: BiV Pacemaker Interrogation: 06/01/2023 Presenting rhythm: -BiV paced Underlying rhythm: Mobitz II Lead testing auto wnl Battery nearing KAMI 3.6 months; 2.74V EC06/01/2023: AV paced 62bpm Lab Work Reviewed: Component Latest Ref Rng 05/11/2023 WBC 4.00 - 10.80 K/uL 7.58 Neutrophils % 40.0 - 75.0 % 70.5 Lymphocytes % 18.0 - 42.0 % 19.0 Monocytes % 1.0 - 11.0 % 8.4 Eosinophils % 0.0 - 6.0 % 1.6 Basophils % 0.0 - 2.0 % 0.5 Absolute Neutrophils 1.80 - 7.70 K/uL 5.34 Absolute Lymphocytes 1.00 - 4.80 K/ul 1.44 Absolute Monocytes 0.00 - 1.10 K/uL 0.64 Absolute Eosinophils 0.00 - 0.70 K/uL 0.12 Absolute Basophils 0.00 - 0.20 K/uL 0.04 WBC 4.00 - 10.80 K/uL 7.58 RBC 4.50 - 5.25 M/uL 4.45 HGB 14.0 - 16.8 g/dL 13.2 (L) HCT 40.0 - 48.4 % 40.1 MCV 82.0 - 99.5 fL 90.1 MCH 27.0 - 34.0 pg 29.7 MCHC 32.0 - 36.0 g/dL 32.9 RDW 11.5 - 15.5 % 14.0 PLT 140 - 400 K/uL 302 MPV 6.6 - 11.1 fL 10.1 ESR <20 mm/hour 22 (H) CRP (Inflammatory Marker) <=5 mg/L 4 Labs at outside facility 01/2023: Cr 0.9 ASSESSMENT: pAF on Xarelto and coreg [id number] (age, HTN) High degree AV block Mobitz Type II with syncopal episodes falling forward hit his face S/p ppm 12/25/2014; then upgraded to BiV in 04/07/2016 due to pacemaker mediated cardiomyopathy (of note the RA lead is a CEYX lead; rest are Velasco) NICM EF after ppm in 2014 went down and then improved in 2016 after pt got an upgrade to biv ppm 03/2016 HTN HLD LILLIAM on CPAP but has been having problems with it-saw sleep medicine in 04/27/2023-they were not aware of the problems H/o melanoma PLAN: -Pt's device has not reached KAMI but once it does he will be scheduled for a generator change -Discussed procedure and risks which include but are not limited to arrhythmias, strokes, heart attacks, , bleeding and infection with the patient and the family; they expressed an understandingand wish to proceed. -For the generator change he will need to hold the xarelto the night before and hold the lasix the morning of -Device and wound check 1 week after the procedure -Lab work closer to procedure (CBC, CMP) -Hold lasix morning of procedure -Echocardiogram Continue with routine device checks -All his medications have been refilled -We will get his remote device transmission switched over to our office -Discussed with patient and subtle changes in how he is feeling or doing daily activities to contact us sooner; don't wait days or weeks. -Educated patient on caution with change in positions to minimize symptomatic orthostatic hypotension -EP f/u in 6 months Pure hypercholesterolemia (Primary) Hypertension goal BP (blood pressure) < 140/90 Paroxysmal atrial fibrillation (HCC) Shaunna Ngo DO documented in this encounter Nursing Notes * Muna Grijalva LPN - 06/01/2023 1:06 PM EST Examination Room: 16 Name: Terry Beckham Date of : 1940 Reason for Visit: New pt Problems/Concerns: [facility] - pt concerned about low battery Interim Hosp(s): denies Chest Pain/SOB: denies MyChart Discussed: ALREADY ACTIVE Patient was instructed to not get up on the exam table until directed and assisted by their provider; patient is to remain seated in the chair/ wheelchair/ exam table for fall prevention and safety reasons. Patient is aware staff will assist stepping down off exam table with personnel. documented in this encounter Plan of Treatment Upcoming Encounters Date Type Department Care Team (Late st Contact Info) Description 08/12/2023 3:00 PM EST Cardiac Studies Cardiac Studies, [facility] [address] [place] [address] 10/08/2023 10:40 AM EDT Office Visit Family Practice [facility] [address] [place] [address] [id number] Ana Maria Rivera MD [address] [facility] [address] [place] [address] 10/26/2023 10:00 AM EDT Office Visit [facility] [place] [address] [place] [id number] Lexie William DO [address] [place] [address] 12/06/2023 11:00 AM EDT Office Visit Urology, [facility] [address] [facility] [address] [place] [address] Nikhil Hutchins MD [address] [facility] [address] [place] [id number] 12/14/2023 10:00 AM EDT Office Visit Cardiology, [facility] [address] [facility] [address] [place] [address] Catherine Jimenez CRNP [address] [facility] [address] [place] [phone] Scheduled Orders Name Type Priority Associated Diagnoses Orde r Schedule ECHO, COMPLETE (2D), TRANS-THORACIC Echocardiology Routine Pure hypercholesterolemia Hypertension goal BP (blood pressure) < 140/90 Paroxysmal atrial fibrillation (HCC) Mobitz type II atrioventricular block Status post biventricular pacemaker Expected: 06/01/2023 (Approximate), Expires: 07/02/2025 Health Maintenance Due Date Last Done Comments Depression Screening 1952 Albumin/Creatinine Ratio 1958 DTaP,Tdap,and Td Vaccines (1 - Tdap) 01/30/2010 01/29/2010 Zoster Vaccines (2 of 3) 11/28/2010 10/03/2010 COVID-19 Vaccine ( - season) 2023 03/24/2022, 09/26/2021, 05/08/2021, Additional history exists GFR 02/05/2024 02/04/2023 Pneumococcal Vaccine: 65+ Years Completed 07/26/2015, 06/21/2010, 05/22/2010 Influenza Vaccine (FLU shot) Completed 11/2022, 03/24/2022, 02/28/2021 GARDASIL-HPV IMMUNIZATION SERIES Aged Out No longer eligible based on patient's age to complete this topic Hepatitis B Aged Out No longer eligi ble based on patient's age to complete this topic MENINGOCOCCAL (MENACTRA/MENVEO) Aged Out No longer eligible based on patient's age to complete this topic documented as of this encounter Medical Devices Not on filedocumented as of this encounter Results * EKG (06/01/2023 2:09 PM EST) 06/01/2023 2:09 PM EST Narrative Procedure Note Trevor Gaston, DO - 06/01/2023 2:09 PM EST REASON FOR STUDY: biv ppm; AF CONCLUSIONS: AV dual-paced rhythm Biventricular pacemaker detected Abnormal ECG No previous ECGs available Ventricular Rate: 62 Atrial Rate: 62 WI Interval: 172 QRS Duration: 154 QT/QTc: 438/444 ms P-R-T [place]: 103 : 245 : 54 degrees Shaunna Ngo DO EKG [facility] documented in this encounter Visit Diagnoses Diagnosis Mobitz type II atrioventricular block- Primary Mobitz (type) II atrioventricular block Paroxysmal atrial fibrillation (HCC) Atrial fibrillation Pure hypercholesterolemia Hypertension goal BP (blood pressure) < 140/90 Unspecified essential hypertension Status post biventricular pacemaker Cardiac pacemaker in situ Pure hypercholesterolemia Hypertension goal BP (blood pressure) < 140/90 Unspecified essential hypertension Paroxysmal atrial fibrillation (HCC) Atrial fibrillation Mobitz type II atrioventricular block Mobitz (type) II atrioventricular block Status post biventricular pacemaker Cardiac pacemaker in situ documented in this encounter Care Teams Inspector Elevators Relationship Specialty Start Date End Date Ana Maria Rivera MD [address] [facility] [place] [facility] [place] [address] PCP - General Family Medicine 04/08/23 documented as of this encounter"
--- OUTSIDE RECORDS SUMMARY | 2023-07-01 04:11 | External Medical Summary | Summary of Care ---
Author Name Unknown Organization [facility] Address [address] [place] [address] Phone [phone] Care Team Providers Care Hoop Riveting Machine Operator Name Role Phone Ana Maria Rivera MD Primary Care Provider [phone] Reason for Visit * Reason Comments Outpatient Testing Encounter Details Date Type Department Care Team (Late st Contact Info) Description 06/23/2023 10:50 AM EST Laboratory Laboratory [facility] [address] [place] [id number] [facility] [address] [place] [address] Essential hypertension Allergies No known active allergiesdocumented as of this encounter (statuses as of 06/23/2023) Medications Medication Sig Dispensed Refills Start Date [...] mouth in the morning. 90 Tablet 3 04/20/2023 Active Atorvastatin Calcium 10 MG Oral Tablet (Lipitor)Indications:Pure hypercholesterolemia Take 1 Tablet by mouth in the morning. 90 Tablet 3 06/01/2023 Active Carvedilol 25 MG Oral Tablet (Coreg) Take 1 Tablet by mouth in the morning and 1 Tablet before bedtime. With food.. 180 Tablet 3 06/01/2023 Active Furosemide 40 MG Oral Tablet (Lasix) Take 1 Tablet by mouth in the morning. 90 Tablet 3 06/01/2023 Active Losartan Potassium 100 MG Oral Tablet (Cozaar)Indications:Hypert ension goal BP (blood pressure) < 140/90 Take 1 Tablet by mouth in the morning. 90 Tablet 3 06/01/2023 Active Xarelto 20 MG Oral Tablet Take 1 Tablet by mouth in the morning. With food.. 90 Tablet 3 06/01/2023 Active documented as of this encounter (statuses as of 06/23/2023) Active Problems Problem Noted Date Diagnosed Date Paroxysmal atrial fibrillation 04/08/2023 Pacemaker 04/08/2023 Atonic bladder 04/08/2023 Pure hypercholesterolemia 04/08/2023 History of melanoma 04/08/2023 Obstructive sleep apnea of adult 04/08/2023 Lower extremity edema 04/08/2023 Essential hypertension 04/08/2023 S/p total knee replacement, bilateral 04/08/2023 documented as of this encounter (statuses as of 06/23/2023) Immunizations Name Administration Dates Next Due COVID-19 [...] Cigarettes Q uit: 1960 Smokeless Tobacco: Never Alcohol Use Standard Drinks/Week Comments Yes 0 [...] on file documented as of this encounter Plan of Treatment Upcoming Encounters Date Type Department Care Team (Late st Contact Info) Description 08/12/2023 3:00 PM EST Cardiac Studies Cardiac Studies, [facility] [address] [facility] [place] [address] 10/08/2023 10:40 AM EDT Office Visit Family Practice [facility] [address] [place] [address] Ana Maria Rivera MD 200 [facility] [place] [address] 10/26/2023 10:00 AM EDT Office Visit Sleep Disorders Ctr [facility] 132 [facility] [place] [phone] Lexie William DO 132 [facility] [place] [address] 12/06/2023 11:00 AM EDT Office Visit Urology, [facility] [address] [facility] [place] [address] Nikhil Hutchins MD [address] [address] [place] [address] 12/14/2023 10:00 AM EDT Office Visit Cardiology, [facility] [address] [facility] [place] [address] Catherine Jimenez CRNP [address] [place] [address] [place] [phone] 12/27/2023 2:15 PM EDT Office Visit Dermatology [facility] [address] [facility] [address] [place] [address] Yusef Browne MD 200 [facility] [place] [address] Pending Results Name Type Priority Associated Diagnoses Date /Time BASIC METABOLIC PANEL Lab Routine Essential hypertension 06/23/2023 10:35 AM EST Health Maintenance Due Date Last Done Comments Depression Screening 1950 Albumin/Creatinine Ratio 1958 DTaP,Tdap,and Td Vaccines (1 - Tdap) 01/30/2010 01/29/2010 Zoster Vaccines (2 of 3) 11/28/2010 10/03/2010 COVID-19 Vaccine ( season) 2023 03/24/2022, 09/26/2021, 05/08/2021, Additional history [...] Not on filedocumented as of this encounter Visit Diagnoses Diagnosis Essential hypertension Unspecified essential hypertension documented in this encounter Care Teams Hoop Riveting Machine Operator Relationship Specialty Start Date End Date Ana Maria Rivera MD [address] [place], [place] [address] PCP - General Family Medicine 04/08/23 documented as of this encounter
--- OUTSIDE RECORDS SUMMARY | 2023-07-01 04:11 | External Medical Summary | Summary of Care ---
Author Name Unknown Organization [facility] Address [address] [place] [address] Phone [phone] Care Team Providers Care Pulley Maintainer Name Role Phone Ana Maria Rivera MD Primary Care Provider [phone] Reason for Visit * Reason Comments NEW PATIENT New patient presents to establish care. He lives independently at [facility]. He was previously seen every 6 months by his passenger interline clerk. He was last seen by his previous passenger interline clerk in November so he is due for his skin check. He states that he does have a little red rash in his crotch area.Hx: MM, BCC, MOHS surgery * Evaluate & Treat - Unlimited Visits (Within 10 days (routine)) - Authorized Specialty Diagnoses / Procedures Referred By Gina t Referred To Contact Dermatology Diagnoses History of melanoma Ana Maria Rivera MD 200 [facility] [place] [address] Referral ID Status Reason Start Date Expiration Date Visits Requested Visits Authorized [id number] Authorized Specialty Services Required 3 [id number] Encounter Details Date Type Department Care Team (Late st Contact Info) Description 06/17/2023 10:30 AM EST Office Visit Dermatology [facility] [place] [address] [place] [address] Yusef Browne MD 200 [facility] [place] [address] Actinic skin damage*; Skin neoplasm; Actinic keratosis; Seborrheic keratoses; Hx of basal cell carcinoma; Hx of malignant melanoma; Scar; Tinea cruris; Multiple benign nevi; Leon angioma Allergies No known active allergiesdocumented as of this encounter (statuses as of 06/19/2023) Medications Medication Sig Dispensed Refills Start Date [...] as of this encounter (statuses as of 06/19/2023) Active Problems Problem Noted Date Diagnosed Date Paroxysmal atrial fibrillation 04/08/2023 Pacemaker 04/08/2023 Atonic bladder 04/08/2023 Pure hypercholesterolemia 04/08/2023 History of melanoma 04/08/2023 Obstructive sleep apnea of adult 04/08/2023 Lower extremity edema 04/08/2023 Essential hypertension 04/08/2023 S/p total knee replacement, bilateral 04/08/2023 documented as of this encounter (statuses as of 06/19/2023) Immunizations Name Administration Dates Next Due COVID-19 [...] on file documented as of this encounter Progress Notes * Yusef Browne MD - 06/17/2023 10:34 AM EST SUBJECTIVE: Chief Complaint: Chief Complaint Patient presents with NEW PATIENT New patient presents to establish care. He lives independently at [facility]. He was previously seen every 6 months by his passenger interline clerk. He was last seen by his previous passenger interline clerk in November so he is due for his skin check. He states that he does have a little red rash in his crotch area. Hx: MM, BCC, MOHS surgery HPI: Terry Beckham is a 82 year old male seen for a full skin check. Tells me he has history of several skin cancers. No records of this. Tells me he had 2 melanomas. One on right? knee. Also one on back? BCCs on shoulders, face Tells me had a skin check about 6 months. Had mohs on face maybe on left cheek about 6 months ago Melanomas were treated at [facility] in [place] Has rash he's concerned about in crotch. OBJECTIVE: GEN: Elderly but, alert, no distress, appears oriented, pleasant, and cooperative SKIN: Detailed exam of hair, face, trunk, arms, and legs A. Right parasternal back - 8mm pink transulcent papule - BCC B. Right upper arm - 8mm eroded pink papule - bcc? C. Right oliveira - 1.0cm thin waxy black plaque - favor pigmented SK, r/o atypical melanocytic proliferation Left cheek x2, right cheek x2, vertex scalp x2 - x6 total gritty erythematous macules/papules Well-healed scar(s) at primary site(s) without evidence of recurrence Scattered on face, chest, back - diffuse mottled hypopigmented and hyperpigmented macules without significant irregularity. Associated telangiectasias At the trunk and extremities are several scattered lee/brown hyperkeratotic stuck on appearing waxypapules. Multiple Scattered bright red to violaceous macules and domed papules over torso Scattered on the chest, abdomen, back upper and lower extremities are multiple evenly pigmented brown macules and papules without significant irregularity. Groin with well demarcated erythematous scaly plaques ASSESSMENT/PLAN: Skin neoplasm(s) - Shave biopsy of the following lesion(s) A. Right parasternal back - 8mm pink transulcent papule - BCC B. Right upper arm - 8mm eroded pink papule - bcc? C. Right oliveira - 1.0cm thin waxy black plaque - favor pigmented SK, r/o atypical melanocytic proliferation Procedure - Tangential biopsy of skin (Hold for path lesions A,B) Biopsy by shave was recommended for the lesion(s) noted above to establish and confirm diagnosis. The procedure, risks, benefits, alternatives and expected outcomes were discussed with the patient and consent was obtained. Time out called. Patient identified, procedure verified, site(s) identified and verified. Patient and staff present in agreement. Area prepped with alcohol and anesthetized using 0.5% lidocaine with epinephrine at 1:200,000 concentration. Biopsy of lesion(s) performed. 20% AlCl and bandaging applied. Specimen(s) sent to pathology. Patient instructed in routine post-op care. Lesion(s) A and B was/were curetted for cure. Size of lesion A : 8mm Size of wound after currettage: 16mm Size of lesion B : 8mm Size of wound after currettage: 16mm Actinic keratosis -The diagnosis and malignant potential of the lesion was explained. Treatment options were reviewedincluding cryotherapy, topical medications, and observation. All questions were addressed. Procedure - Cryotherapy (Premalignant Destruction) -The patient would like to proceed with cryosurgery;Cryosurgery explained to the patient, consent obtained, patient, site and procedure verified, and then cryotherapy was performed with Liquid Nitrogen via cryo spray unit to 6 lesions. Location noted in physical exam. Post op course explained. -Discussed that if any of these lesions fail to completely resolve after treatment patient should call me for re-evaluation Scar(s), History of melanoma? History of Nonmelanoma Skin Cancer - Well healed scar(s) with no evidence of recurrence - Recommended periodic skin exams and instructed to call clinic if patient notices any changing lesions, including rapid enlargement, changes in color or shape or symptoms, bleeding, or other concerns. The common features and behavior of non-melanoma skin cancers (e.g. basal cell carcinoma/squamouscell carcinoma) as well as the features of melanoma were also reviewed. -Daily sun protection recommended including physical (i.e. clothing) and chemical blockers. Broad spectrum sunscreens with at least SPF 30 for UVA and UVA protection were recommended. Chronic Actinic Damage - Discussed that skin changes are due to chronic sun exposure. - Daily sun protection as above Seborrheic keratoses - The benign nature of these lesions was discussed with the patient and that no treatment is indicated today. Leon angioma(s) - The benign nature of these lesions was discussed with the patient and that no treatment is indicated today. Multiple benign-appearing nevi - Dermoscopy was used for physical examination of pigmented lesions during todays office visit. - No features concerning for malignancy on exam today. - Discussed and emphasized importance of sun protection with SPF >30 and sun protective attire - Patient to contact physician for any new or changing lesions or other concerns. Tinea cruris - Discussed nature of condition and expected course, treatment options - OTC terbinafine cream to groin until resolved I have no previous records for this patient and he did not provide any at appointment today. His prior dermatology care has been at several prior locations around the country. He tells me he has a history of both melanoma and BCC. Patient filled out release and gave us contact information for his prior dermatology providers. F/U - 6 months. Must be 30 min complex appointment Yusef Browne MD Ref: ANA MARIA RIVERA[[id number]] [address] [place] [address] (office) [phone] (fax) PCP: ANA MARIA RIVERA 200 [facility] [place] [address] [phone] documented in this encounter Nursing Notes * Oksana Nicholas MED ASSIST - 06/17/2023 10:08 AM EST Patient identified by name and date of . Do you have any concerns about pain management for today's visit? No Living Will or Advance Directive for Health Care as noted on problem list. [facility] is a way you can talk to your provider online through e-mail. Would you like to sign up? I can activate it for you? ALREADY ACTIVE. Chief Complaint Patient presents with NEW PATIENT New patient presents to critical access hospital care. He lives independently at [facility]. He was previously seen every 6 months by his passenger interline clerk. He was last seen by his previous passenger interline clerk in November so he is due for his skin check. He states that he does have a little red rash in his crotch area. Hx: MM, BCC, MOHS surgery documented in this encounter Plan of Treatment Upcoming Encounters Date Type Department Care Team (Late st Contact Info) Description 08/12/2023 3:00 PM EST Cardiac Studies Cardiac Studies, [facility] [address] [facility] [place] [address] 10/08/2023 10:40 AM EDT Office Visit [employer] [facility] [place] [place] [address] Ana Maria Rivera MD 200 [facility] [place] [address] 10/26/2023 10:00 AM EDT Office Visit Sleep Disorders Ctr [facility] 132 [facility] [place] [phone] Lexie William DO 132 [facility] [place] [address] 12/06/2023 11:00 AM EDT Office Visit Urology, [facility] 132 [facility] [place] [address] Nikhil Hutchins MD [address] [address] [place] [address] 12/14/2023 10:00 AM EDT Office Visit Cardiology, [facility] [address] [facility] [place] [address] Catherine Jimenez CRNP [address] [facility] [place] [phone] Health Maintenance Due Date Last Done Comments Depression Screening 1950 Albumin/Creatinine Ratio 1956 DTaP,Tdap,and Td Vaccines (1 - Tdap) 01/30/2010 01/29/2010 Zoster Vaccines (2 of 3) 11/28/2010 10/03/2010 COVID-19 Vaccine (6 - season) 2023 03/24/2022, 09/26/2021, 05/08/2021, Additional [...] Not on filedocumented as of this encounter Procedures Procedure Name Priority Date/Time Associated Diagnosis Comments SURGICAL PATHOLOGY Routine 06/17/2023 10 :53 AM EST Skin neoplasm documented in this encounter Results * SURGICAL PATHOLOGY (06/17/2023 10:53 AM EST) Final Diagnosis A. Skin, right parasternal back, shave: Basal cell carcinoma, nodular type B. Skin, right upper arm, shave: Ulcerated actinic keratosis C. Skin, right oliveira, shave: Irritated pigmented seborrheic keratosis 06/18/2023 11:18 AM EST [facility] Clinical History See Order Comments 06/18/2023 11:18 AM EST [facility] Order Comments A. Right parasternal back - 8mm pink transulcent papule - BCC B. Right upper arm - 8mm eroded pink papule - bcc? C. Right oliveira - 1.0cm thin waxy black plaque - favor pigmented SK, r/o atypical melanocytic proliferation 06/18/2023 11:18 AM EST [facility] Gross Description A. Skin. Received in formalin with a container labeled with "Terry Beckham", "[id number]", "1940" and " right parasternal back". Received is a 0.9 x 0.8 cm skin shave. The skin surface is lee-white firm and remarkable for a somewhat centrally located lee to pink shiny area measuring 0.5 x 0.5 cm, extending less than 0.1 cm from the nearest margin. The underlying tissue is inked. The specimen is trisected and submitted in cassette A1. Gross By: MR Verdugo Skin. Received in formalin with a container labeled with "Terry Beckham", "[id number]", "1940" and " right upper arm". Received is a 1.0 x 0.7 cm skin shave. The skin surface is lee to red somewhat mottled partially crusted and flaky. The underlying tissue is inked. The specimen is bisected and submitted in cassette B1. Gross By: MR Lomeli Skin. Received in formalin with a container labeled with "Terry Beckham", "[id number]", "1940" and " right oliveira". Received is a 0.7 x 0.7 cm skin shave. The skin surface is lee to brown somewhat mottled firm and shiny. The underlying tissue is inked. The specimen is bisected and submitted in cassette C1. Gross By: 06/18/2023 11:18 AM EST LABORATORY [facility] Microscopic Description Microscopic examination performed. 06/18/2023 11:18 AM [facility] Sign Out Location Pathologist sign out performed at [facility] ([facility])[address] [address]. 06/18/2023 11:18 AM [facility] Photographic images and diagrams represent lawrence findings in this case; they are not intended to replace a complete review of the final diagnostic report. The following statement applies to Flow Cytometry, Histology, In situ Hybridization Assays and Molecular Genetics. This test was developed and performed at [facility] and its performance characteristics determined by [facility]. It has not been cleared or approved by the U.S. Food and Drug Administration. The FDA has determined that such clearance or approval is not necessary. This test is used for clinical purposes. It should not be regarded as investigational or for research. Special stains, including histochemical stains, and studies using immunologic and HAY methodology (where applicable) are performed with appropriate positive and negative control reactions. 06/18/2023 11:18 AM [facility] Tissue Skin structure / Unknown 06/17/2023 10:53 AM EST 06/17/2023 10:53 AM EST Comment:A. Right parasternal back - 8mm pink transulcent papule - BCCB. Right upper arm - 8mm eroded pink papule - bcc?C. Right oliveira - 1.0cm thin waxy black plaque - favor pigmented SK, r/o atypical melanocytic proliferation Specimen from wound (specimen) Skin structure / Unknown 06/17/2023 10:53 AM EST 06/17/2023 10:53 AM EST Comment:A. Right parasternal back - 8mm pink transulcent papule - BCCB. Right upper arm - 8mm eroded pink papule - bcc?C. Right oliveira - 1.0cm thin waxy black plaque - favor pigmented SK, r/o atypical melanocytic proliferation Specimen from wound (specimen) Skin structure / Unknown 06/17/2023 10:53 AM EST 06/17/2023 10:53 AM EST Comment:A. Right parasternal back - 8mm pink transulcent papule - BCCB. Right upper arm - 8mm eroded pink papule - bcc?C. Right oliveira - 1.0cm thin waxy black plaque - favor pigmented SK, r/o atypical melanocytic proliferation Yusef Browne MD LAB PATHOLOGY ORDERABLES LABORATORY [facility] [address] [place] [address] documented in this encounter Visit Diagnoses Diagnosis Actinic skin damage- Primary Other dermatitis due to solar radiation Skin neoplasm Neoplasm of unspecified nature of bone, soft tissue, and skin Actinic keratosis Seborrheic keratoses Hx of basal cell carcinoma Personal history of other malignant neoplasm of skin Hx of malignant melanoma Personal history of malignant melanoma of skin Scar Scar condition and fibrosis of skin Tinea cruris Dermatophytosis of groin and perianal area Multiple benign nevi Benign neoplasm of skin, site unspecified Leon angioma Nevus, non-neoplastic documented in this encounter Care Teams Pulley Maintainer Relationship Specialty Start Date End Date Ana Maria Rivera MD [address] [place] [address] [place] [address] PCP - General Family Medicine 04/08/23 documented as of this encounter
--- OUTSIDE RECORDS SUMMARY | 2023-07-01 04:12 | External Medical Summary | Summary of Care ---
Author Name Unknown Organization [facility] Address [address] [place] [address] Phone [phone] Care Team Providers Care Industrial Garage Servicer Name Role Phone Ana Maria Rivera MD Primary Care Provider [phone] Reason for Visit * Reason Comments Outpatient Testing Encounter Details Date Type Department Care Team (Late st Contact Info) Description 05/11/2023 3:00 PM EST Laboratory Laboratory, [facility] [address] [place] [address] [facility] [address] [place] [address] Arrived Allergies No known active allergiesdocumented as of this encounter (statuses as of 05/11/2023) Medications Medication Sig Dispensed Refills Start Date End Date Status Losartan Potassium 100 MG Oral Tablet (Cozaar) Take 1 Tablet by mouth in the morning. 0 03/11/2023 Active Xarelto 20 MG Oral Tablet Take 1 Tablet by mouth in the morning. With food.. 0 03/03/2023 Active Atorvastatin Calcium 10 MG Oral Tablet (Lipitor) Take 1 Tablet by mouth in the morning. 0 01/29/2023 Active Carvedilol 25 MG Oral Tablet (Coreg) Take 1 Tablet by mouth in the morning and 1 Tablet before bedtime. With food.. 0 03/02/2023 Active Furosemide 40 MG Oral Tablet (Lasix) Take 1 Tablet by mouth in the morning. 0 03/01/2023 Active B-12 1000 MCG Oral Tablet Disintegrating Take by mouth. 0 Active Multi Vitamin Daily Oral Tablet Take by mouth. 0 Active Docusate Sodium 100 MG Oral Capsule (Stool Softener) Take 1 Capsule by mouth in the morning and 1 Capsule before bedtime. 0 Active Magnesium 200 MG Oral Tablet Chewable Take by mouth. 0 Activ e amLODIPine Besylate 5 MG Oral Tablet (Norvasc) Take 1 Tablet by mouth in the morning. 90 Tablet 3 04/20/2023 Active documented as of this encounter (statuses as of 05/11/2023) Active Problems Problem Noted Date Diagnosed Date Chronic atrial fibrillation 04/08/2023 Pacemaker 04/08/2023 Atonic bladder 04/08/2023 Pure hypercholesterolemia 04/08/2023 History of melanoma 04/08/2023 Obstructive sleep apnea of adult 04/08/2023 Lower extremity edema 04/08/2023 Essential hypertension 04/08/2023 S/p total knee replacement, bilateral 04/08/2023 documented as of this encounter (statuses as of 05/11/2023) Immunizations Name Administration Dates Next Due COVID-19 [...] Information Value Date Recorded Sex Assigned at Not on file Gender Identity Not on file Sexual Orientation Not on file Job Start Date Occupation Industry Not on file Not on file Not on file documented as of this encounter Plan of Treatment Upcoming Encounters Date Type Department Care Team (Late st Contact Info) Description 06/04/2023 11:45 AM EST Office Visit Cardiology, [facility] 132 [facility] [place] [address] Shaunna Ngo, DO [address] [facility] [place] [id number] 10/08/2023 10:40 AM EDT Office Visit Family Practice [facility] 200 [facility] [place] [address] Ana Maria Rivera MD 200 [facility] [place] [address] 10/26/2023 10:00 AM EDT Office Visit Sleep Disorders [facility] 132 [facility] [place] [phone] Lexie William DO 132 [facility] [place] [address] 11/25/2023 1:00 PM EDT Office Visit Dermatology[address] [address] Savanna Boyce, [place]orena [address] [place] [address] [place] [address] 12/06/2023 11:00 AM EDT Office Visit Urology, [facility] 132 [facility] [place] [address] Nikhil Hutchins MD [address] [address] [place] [address] Pending Results Name Type Priority Associated Diagnoses Date /Time CBC WITH WBC DIFFERENTIAL Lab Routine 05/11/2023 2:52 PM EST ERYTHROCYTE SEDIMENTATION RATE (ESR) Lab Routine 05/11/2023 2:52 PM EST CRP (INFLAMMATORY MARKER) Lab Routine 05/11/2023 2:52 PM EST CBC Lab Routine 05/11/2023 2:5 2 PM EST DIFFERENTIAL, AUTOMATED Lab Routine 1 07/11/2022 2:52 PM EST Health Maintenance Due Date Last Done Comments Depression Screening 1952 Albumin/Creatinine Ratio 1958 DTaP,Tdap,and Td Vaccines (1 - Tdap) 01/30/2010 01/29/2010 Zoster Vaccines (2 of 3) 11/28/2010 10/03/2010 COVID-19 Vaccine (6 - 2022- season) 2023 03/24/2022, 09/26/2021, 05/08/2021, Additional history [...] Not on filedocumented as of this encounter Care Teams Industrial Garage Servicer Relationship Specialty Start Date End Date Ana Maria Rivera MD [address] [place] [address] PCP - General Family Medicine 04/08/23 documented as of this encounter
--- OUTSIDE RECORDS SUMMARY | 2023-07-01 04:12 | External Medical Summary | Summary of Care ---
Author Name Unknown Organization [facility] Address [address] [place] [address] Phone [phone] Care Team Providers Care Multifold Operator Name Role Phone Ana Maria Rivera MD Primary Care Provider [phone] Reason for Visit * Reason Onset Date Comments Encounter Created in Error 06/01/2023 Encounter Details Date Type Department Care Team (Late st Contact Info) Description 06/01/2023 Telephone Family Practice [facility] 200 [facility] [place] [address] Ana Maria Rivera MD [address] [place] [address] Encounter Created in Error Allergies No known active allergiesdocumented as of this encounter (statuses as of 06/01/2023) Medications Medication Sig Dispensed Refills Start Date [...] as of this encounter (statuses as of 06/01/2023) Active Problems Problem Noted Date Diagnosed Date Paroxysmal atrial fibrillation 04/08/2023 Pacemaker 04/08/2023 Atonic bladder 04/08/2023 Pure hypercholesterolemia 04/08/2023 History of melanoma 04/08/2023 Obstructive sleep apnea of adult 04/08/2023 Lower extremity edema 04/08/2023 Essential hypertension 04/08/2023 S/p total knee replacement, bilateral 04/08/2023 documented as of this encounter (statuses as of 06/01/2023) Immunizations Name Administration Dates Next Due COVID-19 [...] 3:00 PM EST Cardiac Studies Cardiac Studies, [facility] 132 [facility] [place] [address] 10/08/2023 10:40 AM EDT Office Visit Family Practice [facility] 200 [facility] [place] [address] Ana Maria Rivera MD 200 [facility] [place] [address] 10/26/2023 10:00 AM EDT Office Visit Sleep Disorders [facility] 132 [facility] [place] [phone] Lexie William DO 132 [facility] [place] [address] 11/25/2023 1:00 PM EDT Office Visit Dermatology[address] [address] Savanna Boyce PA-C [address] [place] [address] [place] [address] 12/06/2023 11:00 AM EDT Office Visit Urology, [facility] 132 [facility] [place] [address] Nikhil Hutchins MD [address] [address] [place] [address] 12/14/2023 10:00 AM EDT Office Visit Cardiology, [facility] 132 [facility] [place] [address] Catherine Jimenez CRNP [address] [place] [address] Health Maintenance Due Date Last Done Comments [...] filedocumented as of this encounter Care Teams Multifold Operator Relationship Specialty Start Date End Date Ana Maria Rivera MD [address] [place] [address] PCP - General Family Medicine 04/08/23 documented as of this encounter
--- OUTSIDE RECORDS SUMMARY | 2023-07-01 04:12 | External Medical Summary | Summary of Care ---
Author Name Unknown Organization [facility] Address [address] [place] [address] Phone [phone] Care Team Providers Care Call Centre Supervisor Name Role Phone Ana Maria Rivera MD Primary Care Provider [phone] Encounter Details Date Type Department Care Team (Late st Contact Info) Description 06/01/2023 Documentation Sleep Disorders Ctr [facility] 132 [place] [address] Lexie William, 132 [place] [address] Allergies No known active allergiesdocumented as of [...] as of this encounter Progress Notes * Lexie William DO - 06/01/2023 2:44 PM EST Home Sleep Apnea Test (HSAT) 04/08/17: REESE 6.2 O2 Markie 80 % <89% O2 4.7 mins Titration Polysomnogram 04/21/17: [facility] BMI 27.5 PAP 5-7 cmH20 7 cmH20 0.5 AHI (with REM sleep obtained) Min O2 90 % PLMI 38.2 PAP Compliance: Report date: 03/30/23 to 04/28/23 % total days used: 87% % days used > 4 hours: 83% Average hours a day: 7 hrs 49 mins Large leak: 25.2 AHI: 2.6/hr 95% pressure: 14.8 cmH20 DME: [place], [place] [phone] documented in this encounter Plan of Treatment Upcoming Encounters Date Type Department Care Team (Late st Contact Info) Description 08/12/2023 3:00 PM EST Cardiac Studies Cardiac Studies, [facility] [place] [address] [place] [address] 10/08/2023 10:40 AM EDT Office Visit Family Practice [facility] [place] 200 [facility] [place] [address] Ana Maria Rivera MD 200 [facility] [place] [address] 10/26/2023 10:00 AM EDT Office Visit Sleep Disorders Ctr [facility] [place] 132 [place] [phone] Lexie William DO 132 [place] [address] 11/25/2023 1:00 PM EDT Office Visit Dermatology, [place] [address] [place] [address] Savanna Boyce PA-C [address] [place] [address] [place] [address] 12/06/2023 11:00 AM EDT Office Visit Urology, [facility] 132 [facility] [place] [address] Nikhil Hutchins MD 27 [facility] [address] [place] [address] 12/14/2023 10:00 AM EDT Office Visit Cardiology, [facility] 132 [facility] [place] [address] Catherine Jimenez CRNP 400 [facility] [place] [address] Health Maintenance Due Date Last Done Comments [...] filedocumented as of this encounter Care Teams Call Centre Supervisor Relationship Specialty Start Date End Date Ana Maria Rivera MD [address] [place] [address] PCP - General Family Medicine 04/08/23 documented as of this encounter
--- OUTSIDE RECORDS SUMMARY | 2023-07-01 04:12 | External Medical Summary | Summary of Care ---
Author Name Unknown Organization [facility] Address [address] [place] [address] Phone [phone] Care Team Providers Care Medical Review Specialist Name Role Phone Ana Maria Rivera MD Primary Care Provider [phone] Reason for Visit * Reason Comments NEW PATIENT New patient presents to establish care. He lives independently at [facility]. 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 He states that he does have a little red rash in his crotch area.Hx: MM, BCC, MOHS surgery * Evaluate & Treat - Unlimited Visits (Within 10 days (routine)) - Authorized Specialty Diagnoses / Procedures Referred By Gina t Referred To Contact Dermatology Diagnoses History of melanoma Ana Maria Rivera MD 200 [facility] [place] [address] Referral ID Status Reason Start Date Expiration Date Visits Requested Visits Authorized [id number] Authorized Specialty Services Required 3 999 999 Encounter Details Date Type Department Care Team (Late st Contact Info) Description 06/17/2023 10:30 AM EST Office Visit Dermatology [facility] [place] [address] [place] [address] Yusef Browne MD 200 [facility] [place] [address] Actinic skin damage*; Skin neoplasm; Actinic keratosis; [...] to establish care. He lives independently at [facility]. 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 He was last seen by his previous cattle producers in November so he is due for [...] 6 months ago Melanomas were treated at [facility] in [place] Has rash he's concerned about in [...] appointment Yusef Browne MD Ref: ANA MARIA RIVERA[[id number]] [address] [place] [address] (office) [phone] (fax) PCP: ANA MARIA RIVERA 200 [facility] [place] [address] [phone] documented in this encounter Nursing Notes * Oksana Nicholas MED ASSIST - 06/17/2023 10:08 AM EST Patient identified by name and date of . Do you have any concerns about pain management for today's visit? No Living Will or Advance Directive for Health Care as noted on problem list. [email or web address] is a way you can talk to your provider online through e-mail. Would you like to sign up? I can activate it for you? ALREADY ACTIVE. Chief Complaint Patient presents with NEW PATIENT [facility] He lives independently at [facility]. 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 He states that he does have a little red rash in his crotch area. Hx: MM, BCC, MOHS surgery documented in this encounter Plan of Treatment Upcoming Encounters Date Type Department Care Team (Late st Contact Info) Description 08/12/2023 3:00 PM EST Cardiac Studies Cardiac Studies, [facility] 132 [employer] [place] [address] 10/08/2023 10:40 AM EDT Office Visit [facility] 200 [facility] [place] [address] Ana Maria Rivera MD 200 [facility] [place] [address] 10/26/2023 10:00 AM EDT Office Visit Sleep Disorders Ctr [facility] 132 [facility] [place] [phone] Lexie William DO 132 [facility] [place] [address] 12/06/2023 11:00 AM EDT Office Visit Urology, [facility] 132 [employer] [place] [address] Nikhil Hutchins MD [address] [address] [place] [address] 12/14/2023 10:00 AM EDT Office Visit Cardiology, [facility] 132 [employer] [place] [address] Catherine Jimenez CRNP 400 [facility] [place] [address] Health Maintenance Due Date Last Done Comments [...] with a container labeled with "Terry Beckham", "[id number]", "1940" and " right parasternal back". Received [...] with a container labeled with "Terry Beckham", "[id number]", "1940" and " right upper arm". Received is a 1.0 x 0.7 cm skin shave. The skin surface is lee to red somewhat mottled partially crusted and flaky. The underlying tissue is inked. The specimen is bisected and submitted in cassette B1. Gross By: MR Lomeli Skin. Received in formalin with a container labeled with "Terry Beckham", "[id number]", "1940" and " right oliveira". Received is a 0.7 x 0.7 cm skin shave. The skin surface is lee to brown somewhat mottled firm and shiny. The underlying tissue is inked. The specimen is bisected and submitted in cassette C1. Gross By: 06/18/2023 11:18 AM EST [facility] [place]scopic Description Microscopic examination performed. 06/18/2023 11:18 AM [facility] Sign Out Location Pathologist sign out performed at [facility] [place] [address]. 06/18/2023 11:18 AM [facility] Photographic images and diagrams represent lawrence findings in this case; they are not intended to replace a complete review of the final diagnostic report. The following statement applies to Flow Cytometry, Histology, In situ Hybridization Assays and Molecular Genetics. This test was developed and performed at [facility] and its performance characteristics determined by [email or web address]. It has not been cleared or approved [...] and negative control reactions. 06/18/2023 11:18 AM [facility] Tissue Skin structure / Unknown 06/17/2023 10:53 [...] Yusef Browne MD LAB PATHOLOGY ORDERABLES [facility] [address] [place] [address] documented in this encounter Visit Diagnoses Diagnosis [...] non-neoplastic documented in this encounter Care Teams Medical Review Specialist Relationship Specialty Start Date End Date Ana Maria Rivera MD [address] [place] [address] [place] [address] PCP - General Family Medicine 04/08/23 documented as of this encounter
--- OUTSIDE RECORDS SUMMARY | 2023-07-01 04:12 | External Medical Summary ---
Author Name Unknown Address Unknown Organization K01:[facility] [place] [address] [place] [address] Laboratory Report Ordering Provider Test Date Status KAI PEREZ 05/11/2023 14:52:05 Final Observation Date Value Abnormality Reference (Units ) Status Erythrocyte sedimentation rate by Photometric method 05/11/2023 14:52:05 22 Above high normal <20 (mm/hour) Final Performing Location [facility] [place] [address] [place] [address]
--- OUTSIDE RECORDS SUMMARY | 2023-07-01 04:12 | External Medical Summary | Summary of Care ---
Author Name Unknown Organization [facility] Address [address] [place] [address] Phone [phone] Care Team Providers Care Art History Professor Name Role Phone Ana Maria Rivera MD Primary Care Provider [phone] Reason for Referral * Evaluate & Treat - Unlimited Visits (Within 10 days (routine)) - Authorized Specialty Diagnoses / Procedures Referred By Contwdae ny Referred To Contact Physical Therapy / Physical Medicine And Rehab Diagnoses Pain due to total right knee replacement, initial encounter Edgard Lema PA-C [address] [place] [address] Referral ID Status Reason Start Date Expiration Date Visits Requested Visits Authorized [id number] Authorized Specialty Services Required 3 [phone] Question Answer Referral Priority Within 10 days (routine) Where should this appointment be scheduled? [facility] Reason for Visit * Reason Comments Knee Pain Right knee * Evaluate & Treat - Unlimited Visits (Within 10 days (routine)) - Authorized Specialty Diagnoses / Procedures Referred By Contac t Referred To Contact Orthopaedic Surgery / Orthopedics Diagnoses Bilateral knee pain History of bilateral knee replacement Ana Maria Rivera MD [address] [place] [address] Referral ID Status Reason Start Date Expiration Date Visits Requested Visits Authorized [id number] Authorized Specialty Services Required [phone] Encounter Details Date Type Department Care Team (Late st Contact Info) Description 05/11/2023 2:00 PM EST Office Visit Orthopaedics [facility] [address] [place] [address] Edgard Lema PA-C [address] [place] [address] Pain due to total right knee replacement, initial encounter * Allergies No known active allergiesdocumented as of this encounter (statuses as of 05/27/2023) Medications Medication Sig Dispensed Refills Start Date [...] as of this encounter (statuses as of 05/27/2023) Active Problems Problem Noted Date Diagnosed Date Chronic atrial fibrillation 04/08/2023 Pacemaker 04/08/2023 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 Chief Complaint Patient presents with Knee Pain Right knee HPI: New patient presents to Orthopedics regarding 2 weeks' history of right knee pain. He is 18 months status post right knee arthroplasty performed in [facility]. States he otherwise had an uneventful postoperative course and his knee was doing fine. Denies an actual injury or fall. Denies any calf pain. Will need x-rays of the right knee today. Denies swelling or redness. No fevers or chills. PMH: Patient Active Problem List Diagnosis Code [...] No current facility-administered medications for this visit. No past medical history on file. Past Surgical History: Procedure Laterality Date ARTHROPLASTY KNEE TOTAL REPAIR INITIAL INGUINAL HERNIA REDUCIBLE AGE 3 OR MORE REPAIR UMBILICAL LESION, SMALL Review of patient's allergies indicates: No Known Allergies No family history on file. No family status information on file. Social History Socioeconomic History Marital status: Spouse [...] on file Housing Stability: Not on file Objective There were no vitals taken for this visit. complete review of systems negative General: alert and oriented x3 male, no acute distress, appears currently stated age, pleasant, well nourished Skin: Right knee does not reveal any erythema, effusion, ecchymosis, abrasion, laceration, skin breakdown otherwise. Surgical scar well healed over Neurovascular: Right lower extremity is neurovascularly intact with good sensation strength throughout, calf supple nontender, toes were mobile, +5 strength dorsi and plantar flexion of the foot Musculoskeletal: Right knee ROM 0-120, minimal jointline tenderness, collateral ligaments intact. There is some generalized tenderness around the patella and distal quad. The temperature of the skin of the right knee is slightly elevated compared to the left. Certainly nothing that is overly advanced or worrisome today as his clinical scenario, complaint and picture have not changed over the pastyear to year and a half. Extensor mechanism intact. No obvious cystic change or masses the popliteal fossa. Pes anserine bursa and patellar tendon nontender. Hip and ankle atraumatic X-rays of the right knee reveal postsurgical changes with arthroplasty implants that are intact, well aligned and without evidence of loosening or periprosthetic fracture. Large vascular calcific change in the posterior knee identified on all three views, best lateral. No acute findings such as fracture dislocation or subluxation. Unable to identify any type of obvious cystic changes or masses inthe bone. Official radiology report to follow accordingly and we listed in the patient's chart under imaging. Personal interpretation and documentation regarding today's plain film radiographs performed by myself. ASSESSMENT/PLAN: History of total right knee replacement (Primary) Other orders - XR KNEE 3 VIEWS Impression: History of right total knee arthroplasty, increased pain atraumatic Plan: Today 's findings were discussed with the patient. They were educated regarding their diagnosis. Multiple treatment options discussed and agreed upon, including obtaining baseline labs with a CBC with diff, ESR and CRP. Concerning inflammatory levels and I would likely refer to our joint specialist. I would also like to initiate formal physical therapy for the probable surrounding associated tendinitis of the patella and distal quad. Patient is in agreement. Topical agents thermal modalities may be beneficial as well. The patient has no other questions or concerns. Pleased with today 'scare. Call sooner if needed. This chart was completed in part utilizing [id number] Speech Voice Recognition Software. Grammatical errors, random word insertions, prounoun errors, and incomplete sentences are an occasional consequence of this system due to software limitations, ambient noise, and hardware issues. Any formal questions or concerns about the content, text, or information contained within the body of this dictation should be directly addressed to the provider for clarification. Edgard Lema PA-C documented in this encounter Nursing Notes * Malathi Dunbar LPN - 05/11/2023 1:41 PM EST Right TKR 07/01/21 in [facility]. 2 weeks ago, had a episode of severe pain in left knee, requiredassistance getting into house. No recent injuries or falls. Malathi Carrillo LPN documented in this encounter Miscellaneous Notes * Addendum Note - Eliza Olsen MED ASSIST - 05/27/2023 12:31 PM ESTAddended by: ELIZA OLSEN on: 05/27/2023 12:31 PM Modules accepted: Orders documented in this encounter Plan of Treatment Upcoming Encounters Date Type Department Care Team (Late st Contact Info) Description 06/01/2023 1:15 PM EST [facility] 132 [facility] [place] [address] Shaunna Ngo, DO 400 [facility] [place] [address] 10/08/2023 10:40 AM EDT Office [facility] [place] [address] Ana Maria Rivera MD 200 [facility] [place] [address] 10/26/2023 10:00 AM EDT Office Visit Sleep Disorders Ctr [facility] 132 [facility] [place] [phone] Lexie William, DO 132 [facility] [place] [address] 11/25/2023 1:00 PM EDT Office Visit Dermatology, [address] [place] [address] Savanna Boyce PA-C [address] [place] [address] [place] [address] 12/06/2023 11:00 AM EDT Office Visit Urology, [facility] [address] [place] [address] Nikhil Hutchins MD [address] [place] [address] Scheduled Referrals Name Type Priority Associated Diagnoses Orde r Schedule PHYSICAL THERAPY REFERRAL OP Referral Within 10 days (routine) Pain due to total right knee replacement, initial encounter Ordered: 05/27/2023 Health Maintenance Due Date Last Done Comments [...] Procedure Name Priority Date/Time Associated Diagnosis Comments XR KNEE 3 VIEWS Routine 05/11/2023 2:05 PM EST documented in this encounter Results * CRP (INFLAMMATORY MARKER) (05/11/2023 2:52 PM EST) [facility] CRP (Inflammatory Marker) 4 <=5 mg/L 05/12/2023 2:02 AM EST LAB[facility] Blood Venous blood specimen / Unknown Venipuncture / Unknown 05/11/2023 2:52 PM EST 05/11/2023 2:52 PM EST Edgard Brodyfolk PA-C LAB BLOOD ORDER [facility] [address] [place] [address] * (ABNORMAL) ERYTHROCYTE SEDIMENTATION RATE (ESR) (05/11/2023 2:52 PM EST) [facility] ESR 22(H) <20 mm/hour 05/11/2023 10:43 PM EST [facility]ATORY [facility] Blood Venous blood specimen / Unknown Venipuncture / Unknown 05/11/2023 2:52 PM EST 05/11/2023 2:52 PM EST Edgard Perez [place] PA-C LAB BLOOD ORDER [facility] [address] [address] * XR KNEE 3 VIEWS (05/11/2023 2:05 PM EST) Anatomical Region Laterality Modality Knee, Lower Extremity Computed R adiography 05/11/2023 1:59 PM EST Impressions 05/16/2023 8:52 PM EST IMPRESSION: 1. A suprapatellar effusion is present. 2. Soft tissue swelling of the knee. 3. No acute fracture demonstrated. THIS DOCUMENT HAS BEEN ELECTRONICALLY SIGNED BY JARRETT BOURNE MD Narrative 05/16/2023 8:52 PM EST PROCEDURE INFORMATION: Exam: XR Right Knee Exam date and time: 05/11/2023 1:59 PM Age: 82 years old Clinical indication: Pain in right knee; Additional info: Right knee pain TECHNIQUE: Imaging protocol: Radiologic exam of the right knee. Views: 3 views. COMPARISON: No relevant prior studies available. FINDINGS: Bones/joints: Right knee arthroplasty has been performed and the prosthesis is in normal alignment with no evidence of loosening. A suprapatellar effusion is present. No acute fracture demonstrated. Soft tissues: Prepatellar soft tissue swelling is noted. Vasculature: Vascular calcifications are noted. Procedure Note Jarrett Bourne MD - 05/16/2023 PROCEDURE INFORMATION: Exam: XR Right Knee Exam date and time: 05/11/2023 1:59 PM Age: 82 years old Clinical indication: Pain in right knee; Additional info: Right knee pain TECHNIQUE: Imaging protocol: Radiologic exam of the right knee. Views: 3 views. COMPARISON: No relevant prior studies available. FINDINGS: Bones/joints: Right knee arthroplasty has been performed and theprosthesis is in normal alignment with no evidence of loosening. A suprapatellareffusion is present. No acute fracture demonstrated. Soft tissues: Prepatellar soft tissue swelling is noted. Vasculature: Vascular calcifications are noted. IMPRESSION IMPRESSION: 1. A suprapatellar effusion is present. 2. Soft tissue swelling of the knee. 3. No acute fracture demonstrated. THIS DOCUMENT HAS BEEN ELECTRONICALLY SIGNED BY JARRETT BOURNE MD Edgard BULLARD-Lorena RADIOLOGY ([facility]) documented in this encounter Visit Diagnoses Diagnosis Pain due to total right knee replacement, initial encounter- Primary documented in this encounter Care Teams Art History Professor Relationship Specialty Start Date End Date Ana Maria Rivera MD 200 [facility] [address] PCP - General Family Medicine 04/08/23 documented as of this encounter
--- OUTSIDE RECORDS SUMMARY | 2023-07-01 04:12 | External Medical Summary | Summary of Care ---
Author Name Unknown Organization [facility] Address [address] [place] [address] Phone [phone] Care Team Providers Care Lumber Bearer Name Role Phone Ana Maria Rivera MD Primary Care Provider [phone] Reason for Referral * Evaluate & Treat - Unlimited Visits (Within 10 days (routine)) - Authorized Specialty Diagnoses / Procedures Referred By Gina ny Referred To Contact Physical Therapy / Physical Medicine And Rehab Diagnoses History of total right knee replacement Edgard Lema PA-C [address] [facility] [facility] [place] [address] Referral ID Status Reason Start Date Expiration Date Visits Requested Visits Authorized [id number] Authorized Specialty Services Required [phone] Question Answer Referral Priority Within 10 days (routine) Where should this appointment be scheduled? [facility] Reason for Visit * Reason Comments Knee Pain Right knee * Evaluate & Treat - Unlimited Visits (Within 10 days (routine)) - Authorized Specialty Diagnoses / Procedures Referred By Gina ny Referred To Contact Orthopaedic Surgery / Orthopedics Diagnoses Bilateral knee pain History of bilateral knee replacement Ana Maria Rivera MD [address] [place] [address] Referral ID Status Reason Start Date Expiration Date Visits Requested Visits Authorized [id number] Authorized Specialty Services Required [phone] Encounter Details Date Type Department Care Team (Late st Contact Info) Description 05/11/2023 2:00 PM EST Office Visit Orthopaedics [facility] [address] [facility] [place] [address] Edgard Lema PA-C [address] [place] [address] Pain due to total right knee replacement, [...] status post right knee arthroplasty performed in [facility]. States he otherwise had an uneventful postoperative [...] This chart was completed in part utilizing [employer] Speech Voice Recognition Software. Grammatical errors, random [...] 1:41 PM EST Right TKR 07/01/21 in [place], [facility]. 2 weeks ago, had a episode of severe pain in left knee, requiredassistance getting into house. No recent injuries or falls. Malathi Carrillo LPN documented in this encounter Plan of Treatment Upcoming Encounters Date Type Department Care Team (Late st Contact Info) Description 06/04/2023 11:45 AM EST [facility] 132 [facility] [place] [address] Shaunna Ngo DO 400 [facility] [place] [address] 10/08/2023 10:40 AM EDT Office Visit [facility] Practice [facility] 200 [facility] [place] [address] Ana Maria Rivera MD 200 [facility] [place] [address] 10/26/2023 10:00 AM EDT Office Visit Sleep Disorders Ctr [facility] 132 [facility] [place] [phone] Lexie William DO 132 [facility] [place] [address] 11/25/2023 1:00 PM EDT Office Visit Dermatology[address] [place] [address] Savanna Boyce PA-C [address] [place] [address] [place] [phone] 12/06/2023 11:00 AM EDT Office Visit Urology, [facility] 132 [facility] [place] [address] Nikhil Hutchins MD [address] [place] [address] [place] [address] Pending Results Name Type Priority Associated Diagnoses Date/Time XR KNEE 3 VIEWS Medical Imaging Routine 04/22 2:05 PM EST ERYTHROCYTE SEDIMENTATION RATE (ESR) Lab Routine 05/11/2023 2:52 PM EST CRP (INFLAMMATORY MARKER) Lab Routine 05/11/2023 2:52 PM EST Scheduled Orders Name Type Priority Associated Diagnoses Orde r Schedule ERYTHROCYTE SEDIMENTATION RATE (ESR) Lab Routine Expected: 2022, Expires: 05/11/2024 CRP (INFLAMMATORY MARKER) Lab Routine Expected: 05/11/2023, Expires: 05/11/2024 Scheduled Referrals Name Type Priority Associated Diagnoses Orde r Schedule PHYSICAL THERAPY REFERRAL OP Referral Within 10 days (routine) Ordered: 05/11/2023 Health Maintenance Due Date Last Done Comments [...] as of this encounter Visit Diagnoses Diagnosis Pain due to total right knee replacement, initial encounter- Primary documented in this encounter Care Teams Lumber Bearer Relationship Specialty Start Date End Date Ana Maria Rivera MD [address] [place] [address] PCP - General Family Medicine 04/08/23 documented as of this encounter
--- OUTSIDE RECORDS SUMMARY | 2023-07-01 04:12 | External Medical Summary | Summary of Care ---
Author Name Unknown Organization [facility] Address [address] [place] [address] Phone [phone] Care Team Providers Care Social Media Content Specialist Name Role Phone Ana Maria Rivera MD Primary Care Provider Encounter Details Date Type Department Care Team (Late st Contact Info) Description 05/19/2023 Result Scan Unspecified Department <No scans attached> Allergies No known active allergiesdocumented as of this encounter (statuses as of 06/02/2023) Medications Medication Sig Dispensed Refills Start Date [...] as of this encounter (statuses as of 06/02/2023) Active Problems Problem Noted Date Diagnosed Date Paroxysmal atrial fibrillation 04/08/2023 Pacemaker 04/08/2023 Atonic bladder 04/08/2023 Pure hypercholesterolemia 04/08/2023 History of melanoma 04/08/2023 Obstructive sleep apnea of adult 04/08/2023 Lower extremity edema 04/08/2023 Essential hypertension 04/08/2023 S/p total knee replacement, bilateral 04/08/2023 documented as of this encounter (statuses as of 06/02/2023) Immunizations Name Administration Dates Next Due COVID-19 [...] PM EST [facility] [address] [place] [address] 10/08/2023 10:40 AM EDT Office Visit Family Practice [facility] [address] [place] [address] Ana Maria Rivera MD [address] [place] [address] 10/26/2023 10:00 AM EDT Office Visit Sleep Disorders Ctr Stephany [place] [address] [place] [phone] Lexie William, 132 [place] [address] 11/25/2023 1:00 PM EDT Office Visit Dermatology[address] [place] [address] Savanna Boyce PA-C [address] [place] [address] [place] [address] 12/06/2023 11:00 AM EDT Office Visit Urology, [facility] 132 [facility] [place] [address] Nikhil Hutchins MD [address] [place] [address] 12/14/2023 10:00 AM EDT Office Visit Cardiology, [facility] 132 [facility] [place] [address] Catherine Jimenez CRNP 400 [facility] [place] [phone] Health Maintenance Due Date Last Done Comments Depression Screening 1952 Albumin/Creatinine Ratio 1958 DTaP,Tdap,and Td Vaccines (1 - Tdap) 01/30/2010 01/29/2010 Zoster Vaccines (2 of 3) 11/28/2010 10/03/2010 COVID-19 Vaccine (6 - 24 season) 2023 03/24/2022, 09/26/2021, 05/08/2021, Additional history [...] Procedure Name Priority Date/Time Associated Diagnosis Comments CARDIOLOGY SCANNED RESULT 05/19/2023 documented in this encounter Results * CARDIOLOGY SCANNED RESULT (05/19/2023) 05/19/2023 No Physician Data Unknown OTHER documented in this encounter Care Teams Social Media Content Specialist Relationship Specialty Start Date End Date Ana Maria Rivera MD [address] [place] [address] PCP - General Family Medicine 04/08/23 documented as of this encounter
--- OUTSIDE RECORDS SUMMARY | 2023-07-01 04:13 | External Medical Summary | Summary of Care ---
Author Name Unknown Organization [facility] Address [address] [place] [address] Phone [phone] Care Team Providers Care Back Sizer Name Role Phone Ana Maria Rivera MD Primary Care Provider [phone] Encounter Details Date Type Department Care Team (Late st Contact Info) Description 05/04/2023 Patient Reported Data Patient Survey Ortho OBERD Allergies No known active allergiesdocumented as of this encounter (statuses as of 05/04/2023) Medications Medication Sig Dispensed Refills Start Date [...] as of this encounter (statuses as of 05/04/2023) Active Problems Problem Noted Date Diagnosed Date Chronic atrial fibrillation 04/08/2023 Pacemaker 04/08/2023 Atonic bladder 04/08/2023 Pure hypercholesterolemia 04/08/2023 History of melanoma 04/08/2023 Obstructive sleep apnea of adult 04/08/2023 Lower extremity edema 04/08/2023 Essential hypertension 04/08/2023 S/p total knee replacement, bilateral 04/08/2023 documented as of this encounter (statuses as of 05/04/2023) Immunizations Name Administration Dates Next Due COVID-19 [...] 05/11/2023 2:00 PM EST Office Visit Orthopaedics [facility] 132 [facility] [place] [address] Edgard Lema PA-C [address] [place] [address] 06/04/2023 11:45 AM EST Office Visit Cardiology, [facility] [address] [place] [address] Shaunna Ngo, DO 400 [facility] [place] [id number] 10/08/2023 10:40 AM EDT Office Visit Family Practice [facility] 200 [facility] [place] [address] Ana Maria Rivera MD 200 [facility] [place] [address] 10/26/2023 10:00 AM EDT Office Visit Sleep Disorders [facility] 132 [facility] [place] [phone] Lexie William DO 132 [facility] [place] [address] 11/25/2023 1:00 PM EDT Office Visit Dermatology, [address] [address] Savanna Boyce PA-C [address] [place] [address] [place] [address] 12/06/2023 11:00 AM EDT Office Visit Urology, [facility] [place] [address] Nikhil Hutchins MD [address] [place] [address] [place] [address] Health Maintenance Due Date Last Done Comments Depression Screening 1952 Albumin/Creatinine Ratio 1958 DTaP,Tdap,and Td Vaccines (1 - Tdap) 01/30/2010 01/29/2010 Zoster Vaccines (2 of 3) 11/28/2010 10/03/2010 COVID-19 Vaccine (2022- season) 2023 03/24/2022, 09/26/2021, 05/08/2021, Additional history [...] filedocumented as of this encounter Care Teams Back Sizer Relationship Specialty Start Date End Date Ana Maria Rivera MD [address] [place] [address] PCP - General Family Medicine 04/08/23 documented as of this encounter
--- OUTSIDE RECORDS SUMMARY | 2023-07-01 04:13 | External Medical Summary ---
Author Name Unknown Address Unknown Organization [id number]:LABORATORY [facility] [address] [place] [address] Laboratory Report Ordering Provider Test Date Status KAI PEREZ 05/11/2023 14:52:05 Final Observation Date Value Abnormality Reference (Units ) Status WBC, Total 05/11/2023 14:52:05 7.58 4.00-10.8 0 (K/uL) Final RBC 05/11/2023 14:52:05 4.45 4.50-5.25 (M/uL) Final Hemoglobin 05/11/2023 14:52:05 13.2 Below low normal 14 .0-16.8 (g/dL) Final HCT 05/11/2023 14:52:05 40.1 40.0-48.4 (%) Final MCV 05/11/2023 14:52:05 90.1 82.0-99.5 (fL) Final MCH 05/11/2023 14:52:05 29.7 27.0-34.0 (pg) Final MCHC 05/11/2023 14:52:05 32.9 32.0-36.0 (g/dL) Final RDW 05/11/2023 14:52:05 14.0 11.5-15.5 (%) Final Platelets 05/11/2023 14:52:05 302 140-400 (K /uL) Final MPV 05/11/2023 14:52:05 10.1 6.6-11.1 ( fL) Final Performing Location [facility]ATORY [facility] [address] [place] [address]
--- OUTSIDE RECORDS SUMMARY | 2023-07-01 04:13 | External Medical Summary | Summary of Care ---
Author Name Unknown Organization [facility] Address [address] [place] [address] Phone [phone] Care Team Providers Care Yarn Texturing Machine Operator Name Role Phone Ana Maria Rivera MD Primary Care Provider [phone] Encounter Details Date Type Department Care Team (Late st Contact Info) Description 02/09/2023 Result Scan Unspecified Department <No scans attached> Allergies No known active allergiesdocumented as of this encounter (statuses as of 04/16/2023) Medications No known medicationsdocumented as of this encounter (statuses as of 04/16/2023) Active Problems Problem Noted Date Diagnosed Date Chronic atrial fibrillation 04/08/2023 Pacemaker 04/08/2023 Atonic bladder 04/08/2023 Pure hypercholesterolemia 04/08/2023 History of melanoma 04/08/2023 Obstructive sleep apnea of adult 04/08/2023 Lower extremity edema 04/08/2023 Essential hypertension 04/08/2023 S/p total knee replacement, bilateral 04/08/2023 documented as of this encounter (statuses as of 04/16/2023) Immunizations Name Administration Dates Next Due COVID-19 mRNA, LNP-s, No Pre serve, 2-Dose Series (Moderna) 05/08/2021,08/16/2020,06/29/2020 Covid-19, Mrna, Lnp-s, Pf, B ivalent, 30 Mcg, IM, 12 yrs and above (Pfizer) 03/24/2022,09/26/2021 Pneumococcal Conjugate Vacc, 13 Valent (Prevnar) 07/26/2015 Pneumococcal Polysaccharide PPV23 (Pneumovax) 06/21/2010,05/22/2010 Pneumococcal Vaccine, Unspec ified Formulation 09/20/2011 Seasonal Influenza, Quadriva lent Hd (Fluzone Hd) 03/24/2022,02/28/2021 TD - Tetanus/Diptheria (ADULT) 01/29/2010 Varicella Zoster Vaccine (Adult) 10/03/2010 documented as of this encounter Social History Tobacco Use Types Packs/Day Years Used Date Smoking Tobacco: Never Assessed Sex and Gender Information Value Date Recorded Sex Assigned at Not on file Gender Identity Not on file Sexual Orientation Not on file Job Start Date Occupation Industry Not on file Not on file Not on file documented as of this encounter Plan of Treatment Upcoming Encounters Date Type Department Care Team (Late st Contact Info) Description 04/27/2023 2:40 PM EST Office Visit Sleep Disorders Ctr [facility] 132 [facility] [place] [phone] Lexie William DO 132 [facility] [place] [address] 06/04/2023 11:45 AM EST Office Visit Cardiology, [facility] 132 [facility] [place] [address] Shaunna Ngo DO 400 [facility] [place] [address] 10/08/2023 10:40 AM EDT Office Visit Family Practice [facility] 200 [facility] [place] [address] Ana Maria Rivera MD 200 [facility] [place] [address] 11/25/2023 1:00 PM EDT Office [address] [address] Savanna Boyce PA-C [address] [place] [address] [place] [address] 12/06/2023 11:00 AM EDT Office Visit Urology, [facility] [address] [place] [address] Nikhil Hutchins MD 27 [facility] [place] [address] [place] [address] Health Maintenance Due Date Last Done Comments GFR 1938 Depression Screening 1950 Albumin/Creatinine Ratio 1956 DTaP,Tdap,and Td Vaccines (1 - Tdap) 01/30/2010 01/29/2010 Zoster Vaccines (2 of 3) 11/28/2010 10/03/2010 COVID-19 Vaccine (6 - season) 2023 03/24/2022, 09/26/2021, 05/08/2021, Additional history exists Pneumococcal Vaccine: 65+ Years Completed 07/26/2015, 06/21/2010, [...] Date/Time Associated Diagnosis Comments CARDIOLOGY SCANNED RESULT 02/09/2023 documented in this encounter Results * CARDIOLOGY SCANNED RESULT (02/09/2023) 02/09/2023 No Physician Data Unknown OTHER documented in this encounter Care Teams Yarn Texturing Machine Operator Relationship Specialty Start Date End Date Ana Maria Rivera MD [address] [place] [address] PCP - General Family Medicine 04/08/23 documented as of this encounter
--- OUTSIDE RECORDS SUMMARY | 2023-07-01 04:13 | External Medical Summary | Summary of Care ---
Author Name Unknown Organization [facility] Address [address] [place] [address] Phone [phone] Care Team Providers Care Revival Clerk Name Role Phone Ana Maria Rivera MD Primary Care Provider [phone] Encounter Details Date Type Department Care Team [...] 05/11/2023 2:00 PM EST Office Visit [facility] 132 [facility] [place] [address] Edgard Lema PA-C [address] [place] [address] 06/04/2023 11:45 AM EST Office Visit [facility] [address] [place] [address] Shaunna Ngo, DO 400 [facility] [place] [id number] 10/08/2023 10:40 AM EDT Office Visit Family Practice [facility] 200 [facility] [place] [address] Ana Maria Rivera MD 200 [facility] [place] [address] 10/26/2023 10:00 AM EDT Office Visit Sleep Disorders [facility] 132 [facility] [place] [phone] Lexie William DO 132 [facility] [place] [address] 11/25/2023 1:00 PM EDT Office Visit Dermatology, [address] [address] Savanna Boyce PA-C [address] [place] [address] [place] [address] 12/06/2023 11:00 AM EDT Office Visit [facility], [facility] [place] [address] Nikhil Hutchins MD [address] [address] [place] [address] Health Maintenance Due Date Last Done Comments [...] filedocumented as of this encounter Care Teams Revival Clerk Relationship Specialty Start Date End Date Ana Maria Rivera MD [address] [place] [address] PCP - General Family Medicine 04/08/23 documented as of this encounter
--- OUTSIDE RECORDS SUMMARY | 2023-07-01 04:13 | External Medical Summary | Summary of Care ---
Author Name Unknown Organization [facility] Address [address] [place] [address] Phone [phone] Care Team Providers Care Director Commercial Sales Name Role Phone Ana Maria Rivera MD Primary Care Provider [phone] Encounter Details Date Type Department Care Team [...] 05/11/2023 2:00 PM EST Office Visit Orthopaedics [facility] 132 [facility] [place] [address] Edgard Lema PA-C [address] [place] [address] 06/04/2023 11:45 AM EST Office Visit Cardiology, [facility] [address] [place] [address] Shaunna Ngo, DO 400 [facility] [place] [id number] 10/08/2023 10:40 AM EDT Office Visit Family Practice [facility] 200 [facility] [place] [address] Ana Maria Rivera MD 200 [facility] [place] [address] 10/26/2023 10:00 AM EDT Office Visit Sleep Disorders [facility] 132 [facility] [place] [phone] Lexie William DO 132 [facility] [place] [address] 11/25/2023 1:00 PM EDT Office Visit Dermatology, [address] [address] Savanna Boyce PA-C [address] [place] [address] [place] [address] 12/06/2023 11:00 AM EDT Office Visit Urology, [facility] [place] [address] Nikhil Hutchins MD [address] [address] [place] [address] Health Maintenance Due Date Last Done Comments [...] filedocumented as of this encounter Care Teams Director Commercial Sales Relationship Specialty Start Date End Date Ana Maria Rivera MD [address] [place] [address] PCP - General Family Medicine 04/08/23 documented as of this encounter
--- OUTSIDE RECORDS SUMMARY | 2023-07-01 04:13 | External Medical Summary | Summary of Care ---
Author Name Unknown Organization [facility] Address [address] [place] [address] Phone [phone] Care Team Providers Care Machine Adjuster Leader Case Trim Name Role Phone Ana Maria Rivera MD Primary Care Provider [phone] Reason for Visit * Reason Onset Date Comments Advice 04/30/2023 Encounter Details Date Type Department Care Team (Late st Contact Info) Description 04/30/2023 Telephone Sleep Disorders Ctr [facility] 132 [place] [address] Services, Scheduling [address] [place] [address] Advice (/) Allergies No known active allergiesdocumented as of this encounter (statuses as of 04/30/2023) Medications Medication Sig Dispensed Refills Start Date [...] as of this encounter (statuses as of 04/30/2023) Active Problems Problem Noted Date Diagnosed Date Chronic atrial fibrillation 04/08/2023 Pacemaker 04/08/2023 Atonic bladder 04/08/2023 Pure hypercholesterolemia 04/08/2023 History of melanoma 04/08/2023 Obstructive sleep apnea of adult 04/08/2023 Lower extremity edema 04/08/2023 Essential hypertension 04/08/2023 S/p total knee replacement, bilateral 04/08/2023 documented as of this encounter (statuses as of 04/30/2023) Immunizations Name Administration Dates Next Due COVID-19 [...] on file documented as of this encounter Miscellaneous Notes * Telephone Encounter - Amie Davis LPN - 04/30/2023 2:42 PM EST Info requested has been faxed to [facility] * Telephone Encounter - Suzanna Jane OSA - 04/30/2023 2:00 PM EST Pt called in and he has received a letter from [facility] the he needs a copy of his sleep study faxed over , possible last office visit notes and they need him to fill out a questionnaire. Is there anyway someone can call him to advise? documented in this encounter Plan of Treatment Upcoming Encounters Date Type Department Care Team (Late st Contact Info) Description 06/04/2023 11:45 AM EST [facility] 132 [facility] [place] [address] Shaunna Ngo DO 400 [facility] [place] [address] 10/08/2023 10:40 AM EDT Office Visit Family Practice [facility] 200 [facility] [place] [address] Ana Maria Rivera MD 200 [facility] [place] [address] 10/26/2023 10:00 AM EDT Office Visit Sleep Disorders Ctr [facility] [address] [place] [phone] Lexie William DO [address] [place] [address] 11/25/2023 1:00 PM EDT Office Visit Dermatology[address] [address] Savanna Boyce PA-C [address] [place] [address] [place] [address] 12/06/2023 11:00 AM EDT Office Visit Urology, [facility] [address] [place] [address] Nikhil Hutchins MD [address] [place] [address] [place] [phone] Health Maintenance Due Date Last Done Comments [...] filedocumented as of this encounter Care Teams Machine Adjuster Leader Case Trim Relationship Specialty Start Date End Date Ana Maria Rivera MD 200 [facility] [place] [address] PCP - General Family Medicine 04/08/23 documented as of this encounter
--- OUTSIDE RECORDS SUMMARY | 2023-07-01 04:13 | External Medical Summary | Summary of Care ---
Author Name Unknown Organization [facility] Address [address] [place] [address] Phone [phone] Care Team Providers Care Global Marketing Specialist Name Role Phone Ana Maria Rivera MD Primary Care Provider [phone] Reason for Referral * Evaluate & Treat - Unlimited Visits (Within 10 days (routine)) - Authorized Specialty Diagnoses / Procedures Referred By Gina ny Referred To Contact Orthopaedic Surgery / Orthopedics Diagnoses Bilateral knee pain History of bilateral knee replacement Ana Maria Rivera MD 200 [facility] [place] [address] Referral ID Status Reason Start Date Expiration Date Visits Requested Visits Authorized [id number] Authorized Specialty Services Required 3 [phone] Question Answer Referral Priority Within 10 days (routine) Where should this appointment be scheduled? [facility] What body part is the patient being seen for? Thigh/Knee - bilateral What condition is the patient being seen for? Arthritis including related infection Reason for Visit * Reason Onset Date Comments Referral 04/30/2023 Encounter Details Date Type Department Care Team (Late st Contact Info) Description 04/30/2023 Telephone Family Practice [facility] [place] [address] [place] [address] Ana Maria Rivera MD [address] [place] [address] Referral Allergies No known active allergiesdocumented as of this encounter (statuses as of 05/05/2023) Medications Medication Sig Dispensed Refills Start Date [...] as of this encounter (statuses as of 05/05/2023) Active Problems Problem Noted Date Diagnosed Date Chronic atrial fibrillation 04/08/2023 Pacemaker 04/08/2023 Atonic bladder 04/08/2023 Pure hypercholesterolemia 04/08/2023 History of melanoma 04/08/2023 Obstructive sleep apnea of adult 04/08/2023 Lower extremity edema 04/08/2023 Essential hypertension 04/08/2023 S/p total knee replacement, bilateral 04/08/2023 documented as of this encounter (statuses as of 05/05/2023) Immunizations Name Administration Dates Next Due COVID-19 [...] encounter Miscellaneous Notes * Telephone Encounter - Catherine Jennings OSA - 05/05/2023 12:24 PM EST Pt is scheduled already for 05/11 at * Telephone Encounter - Ana Maria Rivera MD - 05/04/2023 8:02 AM EST Referral placed * Telephone Encounter - Ava Silveira LPN - 04/30/2023 5:54 PM EST Referral pending for review. * Telephone Encounter - Laura Hannah OSA - 04/30/2023 10:52 AM EST Catherine with [facility] calling on patients behalf. Calling to request a referral to Orthopedics due to having ongoing right knee pain. Both knees have been surgically replaced. He would like to be evaluated by ortho. [facility] Please advise if agreeable to referral: Patient direct: [phone] documented in this encounter Plan of Treatment Upcoming Encounters Date Type Department Care Team (Late st Contact Info) Description 05/11/2023 2:00 PM EST Office Visit Orthopaedics [facility] 132 [facility] [place] [address] Edgard Lema PA-C 132 [facility] [place] [address] 06/04/2023 11:45 AM EST Office Visit Cardiology, [facility] 132 [facility] [place] [address] Shaunna Ngo, DO 400 [facility] [place] [address] 10/08/2023 10:40 AM EDT Office Visit Family Practice [facility] 200 [facility] [place] [address] Ana Maria Rivera MD 200 [facility] [place] [address] 10/26/2023 10:00 AM EDT Office Visit Sleep Disorders [facility]tr [facility] 132 [facility] [place] [phone] Lexie William DO 132 [facility] [place] [address] 11/25/2023 1:00 PM EDT Office Visit [address]atology, [address] [address] Savanna Boyce PA-C [address] [place] [address] [place] [address] 12/06/2023 11:00 AM EDT Office Visit Urology, [facility] 132 [facility] [place] [address] Nikhil Hutchins MD 27 [facility] [place] [address] [place] [address] Scheduled Referrals Name Type Priority Associated Diagnoses Orde r Schedule ORTHOPAEDICS REFERRAL OP Referral Within 10 days (routine) Bilateral knee pain History of bilateral knee replacement Ordered: 05/04/2023 Health Maintenance Due Date Last Done Comments [...] as of this encounter Visit Diagnoses Diagnosis History of bilateral knee replacement- Primary Bilateral knee pain Pain in joint, lower leg documented in this encounter Care Teams Global Marketing Specialist Relationship Specialty Start Date End Date Ana Maria Rivera MD [address] [place] [address] PCP - General Family Medicine 04/08/23 documented as of this encounter
--- OUTSIDE RECORDS SUMMARY | 2023-07-01 04:13 | External Medical Summary | Summary of Care ---
Author Name Unknown Organization [facility] Address [address] [place] [address] Phone [phone] Care Team Providers Care Physician Practice Consultant Name Role Phone Ana Maria Rivera MD Primary Care Provider [phone] Reason for Visit * Reason Onset Date Comments Advice 04/30/2023 Encounter Details Date Type Department Care Team (Late st Contact Info) Description 04/30/2023 Telephone Sleep Disorders Ctr [facility] 132 [place] [address] Services, Scheduling [address] [place] [address] Advice (/) Allergies No known active allergiesdocumented [...] encounter Miscellaneous Notes * Telephone Encounter - Suzanna Jane OSA - 04/30/2023 2:00 PM EST Pt called in and he has received a letter from [facility] the he needs a copy of his sleep study faxed over , possible last office visit notes and they need him to fill out a questionnaire. Is there anyway someone can call him to advise? documented in this encounter Plan of Treatment Upcoming Encounters Date Type Department Care Team (Late st Contact Info) Description 06/04/2023 11:45 AM EST Office Visit Cardiology, [facility] 132 [facility] [place] [address] Shaunna Ngo, 400 [place] [address] 10/08/2023 10:40 AM EDT Office Visit Family Practice [facility] 200 [facility] [place] [address] Ana Maria Rivera MD 200 [facility] [place] [address] 10/26/2023 10:00 AM EDT Office Visit Sleep Disorders [facility] 132 [facility] [place] [phone] Lexie William, 132 [facility] [place] [address] 11/25/2023 1:00 PM EDT Office Visit Dermatology, [address] [address] Savanna Boyce PA-C [address] [place] [address] [place] [address] 12/06/2023 11:00 AM EDT Office Visit Urology, [facility] 132 [facility] [place] [address] Nikhil Hutchins MD 27 [facility] [place] [address] [place] [address] Health Maintenance Due Date Last Done Comments [...] filedocumented as of this encounter Care Teams Physician Practice Consultant Relationship Specialty Start Date End Date Ana Maria Rivera MD [address] [place] [address] PCP - General Family Medicine 04/08/23 documented as of this encounter
--- OUTSIDE RECORDS SUMMARY | 2023-07-01 04:13 | External Medical Summary ---
Author Name Unknown Address Unknown Organization [id number][facility] - [address] [place] [address] Laboratory Report Ordering Provider Test Date Status KAI PEREZ 05/11/2023 14:52:05 Final Observation Date Value Abnormality Reference (Units ) Status SYNC LEUKOCYTES IN BLOOD BY AUTOMATED COUNT 05/11/2023 14:52:05 7.58 4.00-10.80 (K/uL) Final Segs 05/11/2023 14:52:05 70.5 40.0-75.0 (%) Final Lymphs % 05/11/2023 14:52:05 19.0 18.0-42.0 (%) Final Monos 05/11/2023 14:52:05 8.4 1.0-11.0 (%) Final Eosinophils 05/11/2023 14:52:05 1.6 0.0-6.0 (%) Final Basos 05/11/2023 14:52:05 0.5 0.0-2.0 (%) Final Absolute Segs 05/11/2023 14:52:05 5.34 1.80-7.70 (K/uL) Final Lymphs, absolute 05/11/2023 14:52:05 1.44 1.00-4.80 (K/ul) Final Monos, Abs 05/11/2023 14:52:05 0.64 0.00-1.10 (K/uL) Final Eos, Abs 05/11/2023 14:52:05 0.12 0.00-0.70 (K/uL) Final Basos, Abs 05/11/2023 14:52:05 0.04 0.00-0.20 (K/uL) Final Performing Location LABORATORY [facility] [place] 57-1 0 - [address] [place] [address]
--- OUTSIDE RECORDS SUMMARY | 2023-07-01 04:13 | External Medical Summary ---
Author Name Unknown Address Unknown Organization K01:LABORATORY C - [address] [place] [address] Laboratory Report Ordering Provider Test Date Status KAI PEREZ 05/11/2023 14:52:05 Final Observation Date Value Abnormality Reference (Units ) Status CRP, low-sensitivity 05/11/2023 14:52:05 4 <=5 (mg/L) Final Performing Location LABORATORY [facility] - [address] [place] [address]
--- OUTSIDE RECORDS SUMMARY | 2023-07-01 04:13 | External Medical Summary | Summary of Care ---
Author Name Unknown Organization [facility] Address [address] [place] [address] Phone [phone] Care Team Providers Care Director Teen Post Name Role Phone Ana Maria Rivera MD Primary Care Provider [phone] Encounter Details Date Type Department Care Team [...] 05/11/2023 2:00 PM EST Office Visit Orthopaedics [facility] 132 [facility] [place] [address] Edgard Lema PA-C [address] [place] [address] 06/04/2023 11:45 AM EST Office Visit Cardiology, [facility] [address] [place] [address] Shaunna Ngo, DO 400 [facility] [place] [id number] 10/08/2023 10:40 AM EDT Office Visit Family Practice [facility] [address] [facility] [place] [address] Ana Maria Rivera MD [address] [facility] [place] [address] 10/26/2023 10:00 AM EDT Office Visit Sleep Disorders [facility] 132 [facility] [place] [phone] Lexie William DO 132 [facility] [place] [address] 11/25/2023 1:00 PM EDT Office Visit Dermatology, [address] [address] Savanna Boyce PA-C [address] [place] [address] [place] [address] 12/06/2023 11:00 AM EDT Office Visit Urology, [facility] [place] [address] Nikhil Hutchins MD [address] [address] [place] [address] Health Maintenance Due Date Last Done Comments [...] as of this encounter Care Teams Director Teen Post Relationship Specialty Start Date End Date Ana Maria Rivera MD [address] [place] [address] PCP - General Family Medicine 04/08/23 documented as of this encounter
--- OUTSIDE RECORDS SUMMARY | 2023-07-01 04:13 | External Medical Summary | Summary of Care ---
Author Name Unknown Organization [facility] Address [address] [place] [address] Phone [phone] Care Team Providers Care Anthropology And Archeology Instructor Name Role Phone Ana Maria Rivera MD Primary Care Provider [phone] Encounter Details Date Type Department Care Team [...] 05/11/2023 2:00 PM EST Office Visit Orthopaedics [facility] 132 [facility] [place] [address] Edgard Lema PA-C [address] [place] [address] 06/04/2023 11:45 AM EST Office Visit Cardiology, [facility] [address] [place] [address] Shaunna Ngo, DO 400 [facility] [place] [id number] 10/08/2023 10:40 AM EDT Office Visit Family Practice [facility] 200 [facility] [place] [address] Ana Maria Rivera MD 200 [facility] [place] [address] 10/26/2023 10:00 AM EDT Office Visit Sleep Disorders [facility] 132 [facility] [place] [phone] Lexie William DO 132 [facility] [place] [address] 11/25/2023 1:00 PM EDT Office Visit Dermatology, [address] [address] Savanna Boyce PA-C [address] [place] [address] [place] [address] 12/06/2023 11:00 AM EDT Office Visit Urology, [facility] [place] [address] Nikhil Hutchins MD [address] [address] [place] [address] Health Maintenance Due Date Last Done Comments [...] filedocumented as of this encounter Care Teams Anthropology And Archeology Instructor Relationship Specialty Start Date End Date Ana Maria Rivera MD [address] [place] [address] PCP - General Family Medicine 04/08/23 documented as of this encounter
--- OUTSIDE RECORDS SUMMARY | 2023-07-01 04:13 | External Medical Summary | Summary of Care ---
Author Name Unknown Organization [facility] Address [address] [place] [address] Phone [phone] Care Team Providers Care Residential Air Sealing Technician Name Role Phone Ana Maria Rivera MD Primary Care Provider [phone] Encounter Details Date Type Department Care Team (Late st Contact Info) Description 11/23/2022 Result Scan Unspecified Department Ana Maria Rivera MD [address] [place], [place] [id number] <No scans attached> Allergies No known active allergiesdocumented as of this encounter (statuses as of 04/13/2023) Medications No known medicationsdocumented as of this encounter (statuses as of 04/13/2023) Active Problems Problem Noted Date Diagnosed Date Chronic atrial fibrillation 04/08/2023 Pacemaker 04/08/2023 Atonic bladder 04/08/2023 Pure hypercholesterolemia 04/08/2023 History of melanoma 04/08/2023 Obstructive sleep apnea of adult 04/08/2023 Lower extremity edema 04/08/2023 Essential hypertension 04/08/2023 S/p total knee replacement, bilateral 04/08/2023 documented as of this encounter (statuses as of 04/13/2023) Immunizations Name Administration Dates Next Due COVID-19 [...] PM EST Office Visit Sleep Disorders Ctr [facility] 132 [facility] [place] [phone] Lexie William DO 132 [facility] [place] [address] 06/04/2023 11:45 AM EST Office Visit Cardiology, [facility] [address] [place] [address] Shaunna Ngo DO 400 [facility] [place] [id number] 10/08/2023 10:40 AM EDT Office Visit [facility] [place] [address] Ana Maria Rivera MD [facility] [place] [address] 11/25/2023 1:00 PM EDT Office Visit Dermatology[address] [place] [address] Savanna Boyce PA-C [address] [place] [address] [place] [address] 12/06/2023 11:00 AM EDT Office Visit Urology, [facility] [address] [place] [address] Nikhil Hutchins MD [address] [place] [address] [place] [phone] Health Maintenance Due Date Last Done Comments [...] Procedure Name Priority Date/Time Associated Diagnosis Comments PATHOLOGY SCANNED RESULT 11/23/2022 documented in this encounter Results * PATHOLOGY SCANNED RESULT (11/23/2022) 11/23/2022 Ana Maria Rivera MD PATHOLOGY documented in this encounter Care Teams Residential Air Sealing Technician Relationship Specialty Start Date End Date Ana Maria Rivera MD 200 [facility] [place] [address] PCP - General Family Medicine 04/08/23 documented as of this encounter
--- OUTSIDE RECORDS SUMMARY | 2023-07-01 04:13 | External Medical Summary | Summary of Care ---
Author Name Unknown Organization [facility] Address [address] [place] [address] Phone [phone] Care Team Providers Care Children'S Service Worker Name Role Phone Ana Maria Rivera MD Primary Care Provider [phone] Reason for Referral * Evaluate & Treat - Unlimited Visits (Within 10 days (routine)) - Authorized Specialty Diagnoses / Procedures Referred By Gina ny Referred To Contact Orthopaedic Surgery / Orthopedics Diagnoses Bilateral knee pain History of bilateral knee replacement Ana Maria Rivera MD 200 [facility] [place] [address] Referral ID Status Reason Start Date Expiration Date Visits Requested Visits Authorized [id number] Authorized Specialty Services Required 3 999 999 [...] Description 04/30/2023 Telephone Family Practice [facility] [place] [address] [place] [address] Ana Maria Rivera MD [address] [place] [address] Referral Allergies No known active allergiesdocumented as [...] encounter Miscellaneous Notes * Telephone Encounter - Ana Maria Rivera MD - 05/04/2023 8:02 AM EST Referral placed * Telephone Encounter - Ava Silveira LPN - 04/30/2023 5:54 PM EST Referral pending for review. * Telephone Encounter - Laura Hannah OSA - 04/30/2023 10:52 AM EST Catherine with [facility] calling on patients behalf. Calling to request a referral to Orthopedics due to having ongoing right knee pain. Both knees have been surgically replaced. He would like to be evaluated by ortho. Patient is okay with going through [facility] for this. Please advise if agreeable to referral: Patient direct: [phone] documented in this encounter Plan of Treatment Upcoming Encounters Date Type Department Care Team (Late st Contact Info) Description 05/11/2023 2:00 PM EST Office Visit Orthopaedics [facility] 132 [facility] [place] [address] Edgard Lema PA-C 132 [facility] [place] [address] 06/04/2023 11:45 AM EST Office Visit Cardiology, [facility] 132 [facility] [place] [address] Shaunna Ngo DO 400 [facility] [place] [id number] 10/08/2023 10:40 AM EDT Office Visit Family Practice [facility] 200 [facility] [place] [address] Ana Maria Rivera MD 200 [facility] [place] [address] 10/26/2023 10:00 AM EDT Office Visit Sleep Disorders Ctr [facility] 132 [facility] [place] [phone] Lexie William DO 132 [facility] [place] [address] 11/25/2023 1:00 PM EDT Office Visit Dermatology[address] [address] Savanna Boyce PA-C [address] [place] [address] [place] [address] 12/06/2023 11:00 AM EDT Office Visit Urology, [facility] 132 [facility] [place] [address] Nikhil Hutchins MD [address] [address] [place] [id number] Scheduled Referrals Name Type Priority Associated Diagnoses [...] leg documented in this encounter Care Teams Children'S Service Worker Relationship Specialty Start Date End Date Ana Maria Rivera MD [address] [place] [address] PCP - General Family Medicine 04/08/23 documented as of this encounter
--- OUTSIDE RECORDS SUMMARY | 2023-07-01 04:13 | External Medical Summary | Summary of Care ---
Author Name Unknown Organization [facility] Address [address] [place] [address] Phone [phone] Care Team Providers Care Foot Setter Name Role Phone Ana Maria Rivera MD Primary Care Provider [phone] Reason for Visit * Reason Onset Date Comments Health Maintenance 04/26/2023 Encounter Details Date Type Department Care Team (Late st Contact Info) Description 04/26/2023 Telephone Family Practice [facility] 200 [place] [address] Ana Maria Rivera MD 200 [place] [address] Health Maintenance Allergies No known active allergiesdocumented as of this encounter (statuses as of 04/26/2023) Medications Medication Sig Dispensed Refills Start Date [...] as of this encounter (statuses as of 04/26/2023) Active Problems Problem Noted Date Diagnosed Date Chronic atrial fibrillation 04/08/2023 Pacemaker 04/08/2023 Atonic bladder 04/08/2023 Pure hypercholesterolemia 04/08/2023 History of melanoma 04/08/2023 Obstructive sleep apnea of adult 04/08/2023 Lower extremity edema 04/08/2023 Essential hypertension 04/08/2023 S/p total knee replacement, bilateral 04/08/2023 documented as of this encounter (statuses as of 04/26/2023) Immunizations Name Administration Dates Next Due COVID-19 [...] encounter Miscellaneous Notes * Telephone Encounter - Araseli Bradshaw LPN - 04/26/2023 2:43 PM EST Care Gaps Comprehensive Care Outreach Last Office/Telemedicine Visit: 04/08/2023 (in office), Visit date not found (telemedicine) Next Office Visit: 10/08/2023 Hemoglobin AIC Results: No results found for: "HEMOGLOBIN A1C" Reviewed Health Maintenance below: Health Maintenance Topic Date Due Depression Screening Never done Albumin/Creatinine Ratio Never done DTaP,Tdap,and Td Vaccines (1 - Tdap) 01/30/2010 Zoster Vaccines (2 of 3) 11/28/2010 COVID-19 Vaccine (6 - 2022- season) 2023 Just established last month they are getting records Care Gap Outreach Action Taken: Outreach not indicated documented in this encounter Plan of Treatment Upcoming Encounters Date Type Department Care Team (Late st Contact Info) Description 04/27/2023 2:40 PM EST Office Visit Sleep Disorders Ctr [facility] 132 [facility] [place] [phone] Lexie William, 132 [facility] [place] [address] 06/04/2023 11:45 AM EST [facility] 132 [facility] [place] [address] Shaunna Ngo, DO 400 [facility] [place] [address] 10/08/2023 10:40 AM EDT Office Visit Family Practice [facility] [place] [address] [place] [address] Ana Maria Rivera MD [address] [place] [address] 11/25/2023 1:00 PM EDT Office [address] [address] Savanna Boyce PA-C [address] [place] [address] [place] [address] 12/06/2023 11:00 AM EDT Office Visit Urology, [facility] [address] [place] [address] Nikhil Hutchins MD [address] [place] [address] [place] [address] Health Maintenance Due Date Last Done Comments [...] filedocumented as of this encounter Care Teams Foot Setter Relationship Specialty Start Date End Date Ana Maria Rivera MD [address] [place] [address] PCP - General Family Medicine 04/08/23 documented as of this encounter
--- OUTSIDE RECORDS SUMMARY | 2023-07-01 04:13 | External Medical Summary | Summary of Care ---
Author Name Unknown Organization [facility] Address [address] [place] [address] Phone [phone] Care Team Providers Care Cake Knocker Name Role Phone Ana Maria Rivera MD Primary Care Provider [phone] Encounter Details Date Type Department Care Team (Late st Contact Info) Description 04/16/2023 Orders Only Family Practice [facility] 200 [facility] [place] [address] Ana Maria Rivera MD 200 [place] [address] Allergies No known active allergiesdocumented as of this encounter (statuses as of 04/16/2023) Medications Medication Sig Dispensed Refills Start Date [...] mouth in the morning. 0 03/01/2023 Active amLODIPine Besylate 5 MG Oral Tablet (Norvasc) Take 1 Tablet by mouth in the morning. 0 01/28/2023 Active B-12 1000 MCG Oral Tablet Disintegrating Take by mouth. 0 Active Multi Vitamin Daily Oral Tablet Take by mouth. 0 Active Docusate Sodium 100 MG Oral Capsule (Stool Softener) Take 1 Capsule by mouth in the morning and 1 Capsule before bedtime. 0 Active Magnesium 200 MG Oral Tablet Chewable Take by mouth. 0 Activ e documented as of this encounter (statuses as [...] PM EST Office Visit Sleep Disorders Ctr [facility] 132 [facility] [place] [phone] Lexie William, DO 132 [facility] [place] [address] 06/04/2023 11:45 AM EST Office Visit Cardiology, [facility] 132 [facility] [place] [address] Shaunna Ngo, DO 400 [facility] [place] [phone] 10/08/2023 10:40 AM EDT Office Visit Family Practice [facility] 200 [facility] [place] [address] Ana Maria Rivera MD 200 [facility] [place] [address] 11/25/2023 1:00 PM EDT Office Visit Dermatology, [address] [address] Savanna Boyce, PA-Lorena [address] [place] [address] [place] [address] 12/06/2023 11:00 AM EDT Office Visit Urology, [facility] 132 [facility] [place] [address] Nikhil Hutchins MD [address] [facility] [address] [place] [address] Health Maintenance Due Date Last Done Comments GFR 1938 02/04/2023 Depression Screening 1950 Albumin/Creatinine Ratio 1956 DTaP,Tdap,and Td Vaccines (1 - Tdap) 01/30/2010 01/29/2010 Zoster Vaccines (2 of 3) 11/28/2010 10/03/2010 COVID-19 Vaccine (2022-24 season) 2023 03/24/2022, 09/26/2021, 05/08/2021, Additional history [...] Procedure Name Priority Date/Time Associated Diagnosis Comments CHEMISTRY-OUTSIDE Routine 02/04/2023 documented in this encounter Results * CHEMISTRY-OUTSIDE (02/04/2023) Not all results display below - see scan for full detail OUTSIDE LAB (SEE SCANNED REPORT) Comment:[facility]-CREAT/ GFR CREATININE-OUTSID E LAB 0.9 0.6 - 1.3 MG/DL OUTSIDE LAB (SEE SCANNED REPORT) EGFR-OUTSIDE LAB 84 60 ML/MIN OUT SIDE LAB (SEE SCANNED REPORT) POTASSIUM-OUTSIDE LAB OUTSIDE LAB (SEE SCANNED REPORT) GLUCOSE-OUTSIDE LAB OUTSIDE LAB (SEE SCANNED REPORT) HOURS FASTING OUTSID E LAB (SEE SCANNED REPORT) TRIGLYCERIDES-OUT SIDE LAB OUTSIDE LAB (SEE SCANNED REPORT) CHOLESTEROL-OUTSI DE LAB OUTSIDE LAB (SEE SCANNED REPORT) HDL-OUTSIDE LAB OUTS OSITO LAB (SEE SCANNED REPORT) CHOL/HDL RATIO-OUTSIDE LAB OUTSIDE LA B (SEE SCANNED REPORT) LDL (CALCULATED)-OUTS OSITO LAB OUTSIDE LAB (SEE SCANNED REPORT) LDL (DIRECT MEASURE)-OUTSIDE LAB OUTSIDE LAB (SEE SCANNED REPORT) HEMOGLOBIN, Z5G-ZELELEJ LAB OUTSIDE LAB (SEE SCANNED REPORT) PHOSPHORUS-OUTSID E LAB OUTSIDE LAB (SEE SCANNED REPORT) PTH-OUTSIDE LAB OUTS OSITO LAB (SEE SCANNED REPORT) MICROALBUMIN RATIO-OUTSIDE LAB OUTSIDE LA B (SEE SCANNED REPORT) PROTEIN, UA-OUTSIDE LAB OUTSIDE LAB (SEE SCANNED REPORT) HEMOGLOBIN-OUTSID E LAB OUTSIDE LAB (SEE SCANNED REPORT) 02/04/2023 History Per Patient LABORATORY OUTSIDE LAB (SEE SCANNED REPORT) documented in this encounter Care Teams Cake Knocker Relationship Specialty Start Date End Date Ana Maria Rivera MD [address] [place] [address] PCP - General Family Medicine 04/08/23 documented as of this encounter
--- OUTSIDE RECORDS SUMMARY | 2023-07-01 04:13 | External Medical Summary | Summary of Care ---
Author Name Unknown Organization [facility] Address [address] [place] [address] Phone [phone] Care Team Providers Care Forecast Analyst Name Role Phone Ana Maria Rivera MD Primary Care Provider [phone] Reason for Referral * Evaluate & Treat - Unlimited Visits (Within 10 days (routine)) - Authorized Specialty Diagnoses / Procedures Referred By Gina ny Referred To Contact Orthopaedic Surgery / Orthopedics Diagnoses Bilateral knee pain History of bilateral knee replacement Ana Maria Rivera MD 200 [place] [address] Referral ID Status Reason Start Date Expiration Date Visits Requested Visits Authorized [id number] Authorized Specialty Services Required 3 999 999 [...] Description 04/30/2023 Telephone Family Practice [facility] [place] [address] [place] [address] Ana Maria Rivera MD [address] [place] [address] Referral Allergies No known active allergiesdocumented as [...] - 04/30/2023 10:52 AM EST Catherine with [facility] calling on patients behalf. Calling to request a referral to Orthopedics due to having ongoing right knee pain. Both knees have been surgically replaced. He would like to be evaluated by ortho. Patient is okay with going through [facility] for this. Please advise if agreeable to referral: Patient direct: [phone] documented in this encounter Plan of Treatment Upcoming Encounters Date Type Department Care Team (Late st Contact Info) Description 06/04/2023 11:45 AM EST Office Visit Cardiology, [facility] 132 [facility] [place] [address] Shaunna Ngo, DO 400 [facility] [place] [phone] 10/08/2023 10:40 AM EDT Office Visit Family Practice [facility] 200 [facility] [place] [address] Ana Maria Rivera MD 200 [facility] [place] [address] 10/26/2023 10:00 AM EDT Office Visit Sleep Disorders [facility]tr [facility] 132 [facility] [place] [phone] Lexie William DO 132 [facility] [place] [address] 11/25/2023 1:00 PM EDT Office Visit Dermatology, [address] [address] Savanna Boyce, PADani [address] [place] [address] [place] [address] 12/06/2023 11:00 AM EDT Office Visit Urology, [facility] 132 [facility] [place] [address] Nikhil Hutchins MD [address] [place] [address] [place] [address] Scheduled Referrals Name Type Priority Associated Diagnoses [...] leg documented in this encounter Care Teams Forecast Analyst Relationship Specialty Start Date End Date Ana Mraia Rivera MD [address] [place] [address] PCP - General Family Medicine 04/08/23 documented as of this encounter
--- OUTSIDE RECORDS SUMMARY | 2023-07-01 04:13 | External Medical Summary | Summary of Care ---
Author Name Unknown Organization [facility] Address [address] [place] [address] Phone [phone] Care Team Providers Care Pharmacy Technician Per Diem Name Role Phone Ana Maria Rivera MD Primary Care Provider Encounter Details Date Type Department Care Team (Late st Contact Info) Description 04/28/2023 Telephone Pulmonary Medicine, [facility] [address] [facility] [address] Lexie William DO [address] [facility] [place] [address] Allergies No known active allergiesdocumented as of this encounter (statuses as of 04/28/2023) Medications Medication Sig Dispensed Refills Start Date [...] as of this encounter (statuses as of 04/28/2023) Active Problems Problem Noted Date Diagnosed Date Chronic atrial fibrillation 04/08/2023 Pacemaker 04/08/2023 Atonic bladder 04/08/2023 Pure hypercholesterolemia 04/08/2023 History of melanoma 04/08/2023 Obstructive sleep apnea of adult 04/08/2023 Lower extremity edema 04/08/2023 Essential hypertension 04/08/2023 S/p total knee replacement, bilateral 04/08/2023 documented as of this encounter (statuses as of 04/28/2023) Immunizations Name Administration Dates Next Due COVID-19 [...] encounter Miscellaneous Notes * Telephone Encounter - Rigo Gonsalez - 04/28/2023 7:53 AM EST Orders in 04/28 transfer DME services to [facility] documented in this encounter Plan of Treatment Upcoming Encounters Date Type Department Care Team (Late st Contact Info) Description 06/04/2023 11:45 AM EST Office Visit Cardiology, [facility] 132 [facility] [place] [address] Shaunna Ngo, DO 400 [facility] [place] [phone] 10/08/2023 10:40 AM EDT Office Visit Family Practice [facility] 200 [place] [address] Ana Maria Rivera MD 200 [facility] [place] [address] 10/26/2023 10:00 AM EDT Office Visit Sleep Disorders [facility] 132 [facility] [place] [phone] Lexie William DO 132 [facility] [place] [address] 11/25/2023 1:00 PM EDT Office Visit Dermatology[address] [address] Savanna Boyce PA-C [address] [place] [address] [place] [address] 12/06/2023 11:00 AM EDT Office Visit Urology, [facility] 132 [facility] [place] [address] Nikhil Hutchins MD [address] [address] [place] [address] Health Maintenance Due Date Last Done Comments [...] filedocumented as of this encounter Care Teams Pharmacy Technician Per Diem Relationship Specialty Start Date End Date Ana Maria Rivera MD 200 [facility] [place], [place] [address] PCP - General Family Medicine 04/08/23 documented as of this encounter
--- OUTSIDE RECORDS SUMMARY | 2023-07-01 04:13 | External Medical Summary | Summary of Care ---
Author Name Unknown Organization [facility] Address [address] [place] [address] Phone [phone] Care Team Providers Care Deicer Tester Name Role Phone Ana Maria Rivera MD Primary Care Provider [phone] Reason for Visit * Reason Comments NEW PATIENT Sleep Apnea * Evaluate & Treat - Unlimited Visits (Within 10 days (routine)) - Authorized Specialty Diagnoses / Procedures Referred By Contac t Referred To Contact Sleep Medicine / Sleep Disorders Diagnoses Obstructive sleep apnea of adult Ana Maria Rivera MD [address] [place] [address] Referral ID Status Reason Start Date Expiration Date Visits Requested Visits Authorized [id number] Authorized Specialty Services Required 3 2 2 Encounter Details Date Type Department Care Team (Late st Contact Info) Description 04/27/2023 2:40 PM EST Office Visit Sleep Disorders Ctr [facility] 132 [facility] [place] [phone] Lexie William DO 132 [facility] [place] [id number] LILLIAM (obstructive sleep apnea)*; Insomnia, unspecified type Allergies No known active allergiesdocumented as of this encounter (statuses as of 04/27/2023) Medications Medication Sig Dispensed Refills Start Date [...] as of this encounter (statuses as of 04/27/2023) Active Problems Problem Noted Date Diagnosed Date Chronic atrial fibrillation 04/08/2023 Pacemaker 04/08/2023 Atonic bladder 04/08/2023 Pure hypercholesterolemia 04/08/2023 History of melanoma 04/08/2023 Obstructive sleep apnea of adult 04/08/2023 Lower extremity edema 04/08/2023 Essential hypertension 04/08/2023 S/p total knee replacement, bilateral 04/08/2023 documented as of this encounter (statuses as of 04/27/2023) Immunizations Name Administration Dates Next Due COVID-19 [...] Sign Reading Time Taken Comments Blood Pressure 140/80 04/27/2023 2:48 PM EST Pulse 91 04/27/2023 2:48 PM EST Temperature - - Respiratory Rate - - Oxygen Saturation 97% 04/27/2023 2:48 PM EST Inhaled Oxygen Concentration - - Weight 88.5 kg (195 lb) 04/27/2023 2:48 PM EST Height 182.9 cm (6') 04/27/2023 2:48 PM EST Body Mass Index 26.45 04/27/2023 2:48 PM EST documented in this encounter Patient Instructions * Patient Instructions* Lexie William DO - 04/27/2023 3:45 PM EST documented in this encounter Progress Notes * Lexie William DO - 04/27/2023 2:47 PM EST INITIAL SLEEP DISORDERS CLINIC EVALUATION Mr. Terry Beckham is a 82 year old male w/ a pmh of atrial fibrillation, CHF w/ BiV pacemaker, andHTN who was referred to the Sleep Medicine Clinic by Dr. Rivera for continued care and evaluationof Obstructive Sleep Apnea. Mr. Beckham was diagnosed with Obstructive Sleep Apnea while living in [place] and started on PAPtherapy. His of many years last spring, and, in the last 3-4 weeks, he moved to [place]. About 5 months ago, he stopped drinking. Since moving to [place], he has gained about 10 lbs and has been sleeping markedly better (for 6.5-7 hours). Two weeks ago, he stopped taking Zoloft. Of note, afte r his , he decided to try cannabis gummies to help with his sleep. While using these, he had an episode of extreme unsteadiness and went to the ER for evaluation. He is using a machine provided through the recall. Denies significant leak, prolonged facial rojas from mask, dry eyes/nose/mouth, and feeling the pressure is too much or too little. Data directly from PAP: Prolonged period Use >4 hours 137/[address] use: 7.4 hours Pressure 14.8 Leak 31 L/min AHI 4.5 Short period AHI 2.2 DME: [facility]-80mcS92 ERP 1 The patient reports having ("+" indicates reports, "-" indicates denies): W/ PAP: - Snoring - Acid reflux at night + Nocturia, less so lately + Morning headaches, "a tiny bit" + Night sweats, at times Parasomnias Symptoms: - Sleepwalking - Dream-enactment Excessive Daytime Sleepiness: - Drowsy driving + Sleepy with sedentary activity, on occasion while watching baseball Patient-Entered [facility] 2019 Msp: Part I And Employment Question 04/21/2023 10:16 AM EST - Filed by Patient Are you currently employed? No, Retired Date of group home: 11/26/2005 Do you have a spouse who is currently employed? No, Not (single, , ) Medicare requires that we periodically ask the following questions. Are you receiving benefits under the Black Lung Benefits Act (BL)? No Was the illness/injury due to a work-related accident/condition? No Are you receiving treatment for an injury or illness covered under no-fault (and/or medical-paymentcoverage) including premises or automobile? No Are you receiving treatment for an injury, or illness, for which another alliance party may be liable? No Are you entitled to Medicare based on: Age? Yes End-stage renal disease (ESRD)? No Patient-Entered Msp: Xbg-Piuxjvbhwm-Aaql Primary Branch Calculation (range: 0 - 5) 1 Do you have group health plan (GHP) coverage based on your own current employment or the employmentof your spouse? No Mcfarland Sleepiness Scale Question 04/26/2023 3:35 PM EST - Filed by Patient What is the chance you will doze off in the following situation? Sitting and reading Moderate chance of dozing Watching TV Slight chance of dozing Sitting inactive in a public place, such as a theater or meeting Moderate chance of dozing As a passenger in a car for an hour without a break Slight chance of dozing Lying down to rest in the afternoon when circumstances permit High chance of dozing When sitting and talking to someone No chance of dozing When sitting quietly after lunch without alcohol Slight chance of dozing In a car, while stopped for a few minutes in traffic No chance of dozing Score (range: 0 - 24) 10 Functional Outcomes Of Sleep Question 04/26/2023 3:41 PM EST - Filed by Patient Please complete the following questions. Do you have difficulty concentrating because you are sleepy or tired? Yes, a little Do you have difficulty remembering things because you are sleepy or tired? Yes, a little Do you have difficulty operating a motor vehicle for short distances (less than 100 miles) because you become sleepy? No Do you have difficulty operating a motor vehicle for long distances (more than 100 miles) because you become sleepy? No Do you have difficulty visiting family or friends in their home because you become sleepy or tired?Yes, a little Has your relationship with family, friends, or work colleagues been affected because you are sleepyor tired? Yes, a little Do you have difficulty watching a movie or video because you become sleepy or tired? Yes, a little Do you have difficulty being as active as you want to be in the evening because you are tired or sleepy? Yes, a little Do you have difficulty being as active as you want to be in the morning because you are tired or sleepy? Yes, moderate Has your mood been affected because you are sleepy or tired? 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 Past Surgical History: Procedure Laterality Date ARTHROPLASTY KNEE TOTAL REPAIR INITIAL INGUINAL HERNIA REDUCIBLE AGE 3 OR MORE REPAIR UMBILICAL LESION, SMALL Current Outpatient Medications Medication Sig Dispense Refill [...] No current facility-administered medications for this visit. Review of patient's allergies indicates: No Known Allergies Social History Tobacco Use Smoking status: Former Types: Cigarettes Quit date: 1960 Years since quittin.8 Smokeless tobacco: Never Substance Use Topics Alcohol use: Yes Comment: occasional beer or glass of wine Drug use: Never No family history on file. Review Of Systems: All other systems negative except those noted in HPI and below: BP 140/80 (BP Site: Left Arm, BP Position: Sitting, BP Cuff Size: Regular) | Pulse 91 | Ht 1.829 m (6') | Wt 88.5 kg (195 lb) | SpO2 97% | BMI 26.45 kg/m | BSA 2.12 m Neck Circumference= 14 inches PHYSICAL EXAMINATION: General - NAD, WDWN Cardiovascular- regular rate and rhythm without murmur Lungs - clear to auscultation bilaterally HEENT - mallampati score of 4, no posterior pharynx erythema Extremities - B/L edema Lt > Rt Mental status- alert and oriented times three, normal speech and comprehension Cranial nerve exam 2- pupils equally round and reactive to light and accomodation, visual parr full to confrontation 3,4,6- extraocular eye movements full without nystagmus 7- facial strength intact bilaterally 8- hearing intact and diminished bilaterally to finger rub 9,10- palate elevates symmetrically 11- SCM and traps are 5/5 bilaterally 12- Tongue protrudes to midline Motor- 5/5 throughout Reflexes- symmetric at biceps, BR and patellars B/L Sensory exam- intact to light touch in all four extremities Coordination- no tremor ASSESSMENT: History of Obstructive Sleep Apnea History of Insomnia - improved PLAN: - Obtain PSG for review - At today's visit, the pressure was adjusted from 8-19flE12 to 10-15xsH70 - Discussed using humidifier during winter if necessary - Will establish with local [facility] in 6 months Electronically signed: Lexie William DO Sleep Medicine documented in this encounter Nursing Notes * Amie Olsen CMA - 04/27/2023 2:49 PM EST Neck measures 15 inches Has had cpap for around 4 months. Brought cpap to appointment today. Here today to establish care. documented in this encounter Plan of Treatment Upcoming Encounters Date Type Department Care Team (Late st Contact Info) Description 06/04/2023 11:45 AM EST Office Visit Cardiology, [facility] 132 [facility] [place] [address] Shaunna Ngo DO 400 [facility] [place] [address] 10/08/2023 10:40 AM EDT Office Visit [facility] 200 [facility] [place] [address] Ana Maria Rivera MD 200 [facility] [place] [address] 10/26/2023 10:00 AM EDT Office Visit Sleep Disorders Ctr [facility] [address] [place] [phone] Lexie William DO 132 [place] [address] 11/25/2023 1:00 PM EDT Office Visit Dermatology, [place] [id number] [facility] [address] Savanna Boyce PA-C [address] [place] [address] [place] [address] 12/06/2023 11:00 AM EDT Office Visit Urology, [facility] 132 [facility] [place] [address] Nikhil Hutchins MD [address] [place] [address] [place] [address] Health Maintenance Due Date Last Done Comments [...] as of this encounter Visit Diagnoses Diagnosis LILLIAM (obstructive sleep apnea)- Primary Obstructive sleep apnea (adult) (pediatric) Insomnia, unspecified type documented in this encounter Care Teams Deicer Tester Relationship Specialty Start Date End Date Ana Maria Rivera MD 200 [facility] [place] [address] PCP - General Family Medicine 04/08/23 documented as of this encounter
--- OUTSIDE RECORDS SUMMARY | 2023-07-01 04:13 | External Medical Summary | Summary of Care ---
Author Name Unknown Organization [facility] Address [address] [place] [address] Phone [phone] Care Team Providers Care Meat Carrier Name Role Phone Ana Maria Rivera MD Primary Care Provider [phone] Encounter Details Date Type Department Care Team [...] 05/11/2023 2:00 PM EST Office Visit Orthopaedics [facility] 132 [facility] [place] [address] Edgard Lema PA-C [address] [place] [address] 06/04/2023 11:45 AM EST Office Visit Cardiology, [facility] [address] [place] [address] Shaunna Ngo, DO 400 [facility] [place] [id number] 10/08/2023 10:40 AM EDT Office Visit Family Practice [facility] 200 [facility] [place] [address] Ana Maria Rivera MD 200 [facility] [place] [address] 10/26/2023 10:00 AM EDT Office Visit Sleep Disorders [facility] 132 [facility] [place] [phone] Lexie William DO 132 [facility] [place] [address] 11/25/2023 1:00 PM EDT Office Visit Dermatology, [address] [address] Savanna Boyce PA-C [address] [place] [address] [place] [address] 12/06/2023 11:00 AM EDT Office Visit Urology, [facility] [place] [address] Nikhil Hutchins MD [address] [place] [address] [place] [address] Health Maintenance Due Date Last Done Comments [...] filedocumented as of this encounter Care Teams Meat Carrier Relationship Specialty Start Date End Date Ana Maria Rivera MD [address] [place] [address] PCP - General Family Medicine 04/08/23 documented as of this encounter
--- OUTSIDE RECORDS SUMMARY | 2023-07-01 04:14 | External Medical Summary | Summary of Care ---
Author Name Unknown Organization [facility] Address [address] [place] [address] Phone [phone] Care Team Providers Care Gauntlet Pairer Name Role Phone Ana Maria Rivera MD Primary Care Provider Reason for Visit * Reason Onset Date Comments Advice 04/08/2023 Encounter Details Date Type Department Care Team (Late st Contact Info) Description 04/08/2023 Telephone Family Practice [facility] 200 [facility] [place] [address] Ana Maria Rivera MD 200 [place] [address] Advice Allergies No known active allergiesdocumented as of this encounter (statuses as of 04/12/2023) Medications Medication Sig Dispensed Refills Start Date [...] as of this encounter (statuses as of 04/12/2023) Active Problems Problem Noted Date Diagnosed Date Chronic atrial fibrillation 04/08/2023 Pacemaker 04/08/2023 Atonic bladder 04/08/2023 Pure hypercholesterolemia 04/08/2023 History of melanoma 04/08/2023 Obstructive sleep apnea of adult 04/08/2023 Lower extremity edema 04/08/2023 Essential hypertension 04/08/2023 S/p total knee replacement, bilateral 04/08/2023 documented as of this encounter (statuses as of 04/12/2023) Immunizations Name Administration Dates Next Due COVID-19 mRNA, LNP-s, No Pre serve, 2-Dose Series (Moderna) 05/08/2021,08/16/2020,06/29/2020 Covid-19, Mrna, Lnp-s, Pf, B ivalent, 30 Mcg, IM, 12 yrs and above ([employer]) 03/24/2022,09/26/2021 Pneumococcal Conjugate Vacc, 13 Valent (Prevnar) [...] encounter Miscellaneous Notes * Telephone Encounter - LILLIAM Lowe - 04/12/2023 8:28 AM EDT Patient returning call. States he believes he did sign for dental office as well. He confirmed for [facility]. He states he signed for PCP. That would come from Dr Marrero. Please call if anything further is needed. [phone] * Telephone Encounter - Jennie Hui LPN - 04/09/2023 3:33 PM EDT Left message for pt to call back. May need to come back in to sign a different records request Check out - did pt sign request for PCP and dental office? * Telephone Encounter - Ana Maria Rivera MD - 04/09/2023 10:08 AM EDT Do not need his dental records. He should have signed a release to get records from PCP and specialists in [place]. * Telephone Encounter - LILLIAM Douglas - 04/08/2023 12:32 PM EDT Tara called and said that they are a dental office from [place] and they got a fax 04/08 looking for patient's medical records, we think you may have sent it to the wrong location. Tara is going to disregard the paperwork unless you say otherwise. documented in this encounter Plan of Treatment Upcoming Encounters Date Type Department Care Team (Late st Contact Info) Description 04/27/2023 2:40 PM EST Office Visit Sleep Disorders Ctr [facility] [address] [place] [phone] Lexie William DO [address] [place] [address] 06/04/2023 11:45 AM EST Office Visit Cardiology, [facility] [address] [place] [address] Shaunna Ngo Evy, DO 400 [facility] [place] [id number] 10/08/2023 10:40 AM EDT Office Visit Family Practice [facility] 200 [facility] [place] [address] Ana Maria Rivera MD 200 [facility] [place] [address] 11/25/2023 1:00 PM EDT Office Visit Dermatology[address] [address] Savanna Boyce PA-Lorena [address] [place] [address] [place] [address] 12/06/2023 11:00 AM EDT Office Visit Urology, [facility] [address] [place] [address] Nikhil Hutchins MD [address] [place] [address] [place] [phone] Health Maintenance Due Date Last Done Comments [...] filedocumented as of this encounter Care Teams Gauntlet Pairer Relationship Specialty Start Date End Date Ana Maria Rivera MD [address] [place] [address] PCP - General Family Medicine 04/08/23 documented as of this encounter
--- OUTSIDE RECORDS SUMMARY | 2023-07-01 04:14 | External Medical Summary | Summary of Care ---
Author Name Unknown Organization [facility] Address [address] [place] [address] Phone [phone] Care Team Providers Care Senior Project Manager Engineering Name Role Phone Ana Maria Rivera MD Primary Care Provider [phone] Encounter Details Date Type Department Care Team Description 04/09/2023 Orders Only Family Practice [facility] [address] [facility] [place] [address] Ana Maria Rivera MD 200 [facility] [place] [address] Allergies No known active allergiesdocumented as of this encounter (statuses as of 04/09/2023) Medications Medication Sig Dispensed Refills Start Date [...] as of this encounter (statuses as of 04/09/2023) Active Problems Problem Noted Date Chronic atrial fibrillation 04/08/2023 Pacemaker 04/08/2023 Atonic bladder 04/08/2023 Pure hypercholesterolemia 04/08/2023 History of melanoma 04/08/2023 Obstructive sleep apnea of adult 023 Lower extremity edema 04/08/2023 Essential hypertension 04/08/2023 S/p total knee replacement, bilateral documented as of this encounter (statuses as of 04/09/2023) Immunizations Name Administration Dates Next Due COVID-19 [...] occasional beer or glass of wine Sex Assigned at Date Recorded Not on file Job Start Date Occupation Industry Not on file Not on file Not on file documented as of this encounter Plan of Treatment Upcoming Encounters Date Type Specialty Care Team Description 04/27/2023 Office Visit Sleep Disorders Lexie William, [address] [place] [address] 06/04/2023 Office Visit Cardiology Shaunna Ngo, DO 400 [facility] [place] [address] 10/08/2023 Office Visit Family Medicine Ana Maria Rivera MD [address] [facility] [address] 11/25/2023 Office Visit Dermatology Savanna Boyce PA-C [address] [place] [address] [place] [address] 12/06/2023 Office Visit Urology Nikhil Hutchins MD [address] [place] [...] Procedure Name Priority Date/Time Associated Diagnosis Comments COLONOSCOPY, OUTSIDE PROCEDURE Routine 10/01/2015 documented in this encounter Results * COLONOSCOPY, OUTSIDE PROCEDURE (10/01/2015) 10/01/2015 History Per Patient GASTRO LOWER OUTSIDE LAB (SEE SCANNED REPORT) documented in this encounter Care Teams Senior Project Manager Engineering Relationship Specialty Start Date End Date Ana Maria Rivera MD 200 [place] [address] PCP - General Family Medicine 04/08/23 documented as of this encounter
--- OUTSIDE RECORDS SUMMARY | 2023-07-01 04:14 | External Medical Summary | Summary of Care ---
Author Name Unknown Organization [facility] Address [address] [place] [address] Phone [phone] Care Team Providers Care Bulk Sugar Handler Name Role Phone Ana Maria Rivera MD Primary Care Provider [phone] Reason for Visit * Reason Onset Date Comments Advice 04/08/2023 Encounter Details Date Type Department Care Team (Late st Contact Info) Description 04/08/2023 Telephone Family Practice [facility] 200 [facility] [place] [address] Ana Maria Rivera MD 200 [place] [address] Advice Allergies No known active allergiesdocumented as [...] 30 Mcg, IM, 12 yrs and above ([facility]) 03/24/2022,09/26/2021 Pneumococcal Conjugate Vacc, 13 Valent (Prevnar) [...] encounter Miscellaneous Notes * Telephone Encounter - Jennie Hui LPN - 04/12/2023 8:35 AM EDT Nothing further needed since signed for PCP * Telephone Encounter - LILLIAM Lowe - 04/12/2023 8:28 AM EDT Patient returning call. States he believes he did sign for dental office as well. He confirmed for [facility]. He states he signed for PCP. That would come from Dr Marrero. Please call if anything further is needed. [phone] * Telephone Encounter - Jennie Hui LPN [...] get records from PCP and specialists in [place]. * Telephone Encounter - LILLIAM Douglas - 04/08/2023 12:32 PM EDT Tara called and said that they are a dental office from [place] and they got a fax 04/08 looking for patient's medical records, we think you may have sent it to the wrong location. Tara is going to disregard the paperwork unless you say otherwise. documented in this encounter Plan of Treatment Upcoming Encounters Date Type Department Care Team (Late st Contact Info) Description 04/27/2023 2:40 PM EST Office Visit Sleep Disorders Ctr [facility] 132 [facility] [place] [phone] Lexie William, DO 132 [facility] [place] [address] 06/04/2023 11:45 AM EST Office Visit Cardiology, [facility] 132 [facility] [place] [address] Shaunna Ngo, DO 400 [facility] [place] [phone] 10/08/2023 10:40 AM EDT Office Visit Family Practice [facility] 200 [facility] [place] [address] Ana Maria Rivera MD 200 [facility] [place] [address] 11/25/2023 1:00 PM EDT Office Visit Dermatology[address] [address] Savanna Boyce PA-Lorena [address] [place] [address] [place] [address] 12/06/2023 11:00 AM EDT Office Visit Urology, [facility] 132 [facility] [place] [address] Nikhil Hutchins MD 27 [facility] [address] [place] [address] Health Maintenance Due Date Last Done Comments [...] filedocumented as of this encounter Care Teams Bulk Sugar Handler Relationship Specialty Start Date End Date Ana Maria Rivera MD [address] [place] [address] PCP - General Family Medicine 04/08/23 documented as of this encounter
--- OUTSIDE RECORDS SUMMARY | 2023-07-01 04:14 | External Medical Summary | Summary of Care ---
Author Name Unknown Organization [facility] Address [address] [place] [address] Phone [phone] Care Team Providers Care Performance Engineer Name Role Phone Ana Maria Rivera MD Primary Care Provider [phone] Reason for Visit * Reason Onset Date Comments Advice 04/08/2023 Encounter Details Date Type Department Care Team Description 04/08/2023 Telephone Family Practice [facility] 200 [place] [address] Ana Maria Rivera MD [address] [place] [address] Advice Allergies No known active allergiesdocumented as [...] get records from PCP and specialists in [place]. * Telephone Encounter - LILLIAM Douglas - 04/08/2023 12:32 PM EDT Tara called and said that they are a dental office from [place] and they got a fax 04/08 looking for patient's medical records, we think you may have sent it to the wrong location. Tara is going to disregard the paperwork unless you say otherwise. documented in this encounter Plan of Treatment Upcoming Encounters Date Type Specialty Care Team Description 04/27/2023 Office Visit Sleep Disorders Lexie William, DO [address] [place] [address] 06/04/2023 Office Visit Cardiology Shaunna Ngo, DO [address] [facility] [place] [address] 10/08/2023 Office Visit Family Medicine Ana Maria Rivera MD 200 [place] [address] 11/25/2023 Office Visit Dermatology Savanna Boyce PA-C [address] [place] [address] [place] [address] 12/06/2023 Office Visit Urology Nikhil Hutchins MD [address] [facility] [place] [address] [place] [id number] Health Maintenance Due Date Last Done Comments [...] filedocumented as of this encounter Care Teams Performance Engineer Relationship Specialty Start Date End Date Ana Maria Rivera MD 200 [facility] [place] [address] PCP - General Family Medicine 04/08/23 documented as of this encounter
--- OUTSIDE RECORDS SUMMARY | 2023-07-01 04:14 | External Medical Summary | Summary of Care ---
Author Name Unknown Organization [facility] Address [address] [place] [address] Phone [phone] Care Team Providers Care Video Specialist Name Role Phone Ana Maria Rivera MD Primary Care Provider [phone] Reason for Visit * Reason Onset Date Comments Advice 04/08/2023 Encounter Details Date Type Department Care Team (Late st Contact Info) Description 04/08/2023 Telephone Family Practice [facility] 200 [place] [address] Ana Maria Rivera MD 200 [place] [address] Advice Allergies No known active allergiesdocumented as [...] 30 Mcg, IM, 12 yrs and above (Mirakl) 03/24/2022,09/26/2021 Pneumococcal Conjugate Vacc, 13 Valent (Prevnar) [...] Miscellaneous Notes * Telephone Encounter - LILLIAM Khan - 04/12/2023 10:12 AM EDT Yes, pt signed a request for 12 different specialists including PCP including the dental per the pts notes and papers with all the facilities that he has seen. ( They were done at check out and I helped fill out all of it for the pt besides the info he neededto fill in) They were all faxed to the offices and placed into fims FYI * Telephone Encounter - Jennie uHi LPN - 04/12/2023 8:35 AM EDT Nothing further needed since signed for PCP * Telephone Encounter - LILLIAM Lowe - 04/12/2023 8:28 AM EDT Patient returning call. States he believes he did sign for dental office as well. He confirmed for [facility]. He states he signed for PCP. That would come from Dr Marrero. Please call if anything further is needed. [phone] * Telephone Encounter - Jennie Hui LPN [...] get records from PCP and specialists in [place]. * Telephone Encounter - LILLIAM Douglas - 04/08/2023 12:32 PM EDT Tara called and said that they are a dental office from [place] and they got a fax 04/08 looking for patient's medical records, we think you may have sent it to the wrong location. Tara is going to disregard the paperwork unless you say otherwise. documented in this encounter Plan of Treatment Upcoming Encounters Date Type Department Care Team (Late st Contact Info) Description 04/27/2023 2:40 PM EST Office Visit Sleep Disorders [facility] [address] [facility] [place] [id number] Lexie William DO 132 [facility] [place] [address] 06/04/2023 11:45 AM EST Office Visit Cardiology, [facility] 132 [facility] [place] [address] Shaunna Ngo, 400 [facility] [place] [address] 10/08/2023 10:40 AM EDT Office Visit Family Practice [facility] 200 [facility] [place] [address] Ana Maria Rivera MD 200 [facility] [place] [address] 11/25/2023 1:00 PM EDT Office Visit Dermatology, [address] [place] [address] Savanna Boyce PA-C [address] [place] [address] [place] [address] 12/06/2023 11:00 AM EDT Office Visit Urology, [facility] [address] [place] [address] Nikhil Hutchins MD [address] [place] [address] [place] [address] Health Maintenance Due Date Last Done Comments [...] filedocumented as of this encounter Care Teams Video Specialist Relationship Specialty Start Date End Date Ana Maria Rivera MD [address] [place] [address] PCP - General Family Medicine 04/08/23 documented as of this encounter
--- OUTSIDE RECORDS SUMMARY | 2023-07-01 04:14 | External Medical Summary | Summary of Care ---
Author Name Unknown Organization [facility] Address [address] [place] [address] Phone [phone] Care Team Providers Care Manager Water Wastewater Name Role Phone Ana Maria Rivera MD Primary Care Provider [phone] Reason for Referral * Evaluate & Treat - Unlimited Visits (Within 10 days (routine)) - Authorized Specialty Diagnoses / Procedures Referred By Gina ny Referred To Contact Urology Diagnoses Atonic bladder Ana Maria Rivera MD [address] [place] [address] Referral ID Status Reason Start Date Expiration Date Visits Requested Visits Authorized [id number] Authorized Specialty Services Required 3 [phone] Question Answer Referral Priority Within 10 days (routine) Where should this appointment be scheduled? [facility] What is the patient being referred for? Urinary Concerns Comments Has atonic bladder, does self caths. Recently moved to area and needs new urologist. * Evaluate & Treat - Unlimited Visits (Within 10 days (routine)) - Authorized Specialty Diagnoses / Procedures Referred By Gina ny Referred To Contact Dermatology Diagnoses History of melanoma Ana Maria Rivera MD [address] [place] [address] Referral ID Status Reason Start Date Expiration Date Visits Requested Visits Authorized [id number] Authorized Specialty Services Required 3 [phone] Question Answer Referral Priority Within 10 days (routine) Where should this appointment be scheduled? [facility] Are you referring the patient for Mohs Surgery and have a current positive skin cancer biopsy result? No What is the reason for the patient referral? Rash/Skin Check/Eval of Lesion or Mole Comments Has history of melanoma, BCC s/p Mohs surgery. Recently moved to [facility]. Was previously seeing dermatology every 6 months. * Evaluate & Treat - Unlimited Visits (Within 10 days (routine)) - Authorized Specialty Diagnoses / Procedures Referred By Gina ny Referred To Contact Sleep Medicine / Sleep Disorders Diagnoses Obstructive sleep apnea of adult Ana Maria Rivera MD [address] [place] [address] Referral ID Status Reason Start Date Expiration Date Visits Requested Visits Authorized [id number] Authorized Specialty Services Required 3 2 2 Question Answer Referral Priority Within 10 days (routine) Where should this appointment be scheduled? [facility] Sleep Apnea Testing and Management Does the patient snore and/or gasp at night or has been told they stop breathing at night? Yes Comments Has LILLIAM diagnosis, needs to re-establish with sleep medicine after moving to [facility] * Evaluate & Treat - Unlimited Visits (Within 10 days (routine)) - Authorized Specialty Diagnoses / Procedures Referred By Gina ny Referred To Contact Cardiovascular Medicine / Cardiology Diagnoses Chronic atrial fibrillation (HCC) Pacemaker Ana Maria Rivera MD [address] [place] [address] Referral ID Status Reason Start Date Expiration Date Visits Requested Visits Authorized [id number] Authorized Specialty Services Required 3 [phone] Question Answer Referral Priority Within 10 days (routine) Where should this appointment be scheduled? [facility] To which of the following clinics are you referring your patient? Arrhythmia/Electrophysiology Clinic Reason for Visit * Reason Comments NEW PATIENT Encounter Details Date Type Department Care Team Description 04/08/2023 Office Visit Family Practice [facility] [place] [address] [place] [address] Ana Maria Rivera MD [address] [place] [address] [address] Encounter for medical examination to establish care*; Chronic atrial fibrillation (HCC); Pacemaker; Essential hypertension; Atonic bladder; Pure hypercholesterolemia; History of melanoma; Obstructive sleep apnea of adult; Lower extremity edema; Situational depression; S/p total knee replacement, bilateral Allergies No known active allergiesdocumented as of this encounter (statuses as of 04/08/2023) Medications Medication Sig Dispensed Refills Start Date [...] Tablet Chewable Take by mouth. 0 Active Sertraline HCl 25 MG Oral Tablet (Zoloft) Take 1 Tablet by mouth in the morning. 0 03/13/2023 04/08/2023 Discontinued documented as of this encounter (statuses as of 04/08/2023) Active Problems Problem Noted Date Chronic atrial fibrillation 04/08/2023 Pacemaker 04/08/2023 Atonic bladder 04/08/2023 Pure hypercholesterolemia 04/08/2023 History of melanoma 04/08/2023 Obstructive sleep apnea of adult 023 Lower extremity edema 04/08/2023 Essential hypertension 04/08/2023 S/p total knee replacement, bilateral documented as of this encounter (statuses as of 04/08/2023) Immunizations Name Administration Dates Next Due COVID-19 [...] Sign Reading Time Taken Comments Blood Pressure 120/60 04/08/2023 9:59 AM EDT Pulse 62 04/08/2023 9:59 AM EDT Temperature 35.9 C (96.7 F) 04/08/2023 9:59 AM ED T Respiratory Rate 18 04/08/2023 9:59 AM EDT Oxygen Saturation 98% 04/08/2023 9:59 AM EDT Inhaled Oxygen Concentration - - Weight 88.1 kg (194 lb 1.9 oz) 04/08/2023 9:59 A M EDT Height 182.9 cm (6') 04/08/2023 9:59 AM EDT Body Mass Index 26.33 04/08/2023 9:59 AM EDT documented in this encounter Progress Notes * Ana Maria Rivera MD - 04/08/2023 10:11 AM EDT Subjective Chief Complaint Patient presents with NEW PATIENT HPI: Terry Beckham is a 82 year old male. The following issues were addressed today: Here to establish care. in the spring and he has moved to be closer to family. Independent living at [facility]. We do not yet have previous medical records. The patient's past medical history, surgical history, family history, social history, medications, and allergies were reviewed. He has chronic atrial fibrillation and is on carvedilol 25 mg BID and Xarelto for anticoagulation. States he also has a pacemaker in place. He previously followed with general cardiology and electrophysiology. Taking Lasix 40 mg daily. States this is for lower extremity edema. Has been on for the past two years or so. He denies a history of heart failure. Has LILLIAM and is compliant with CPAP. Would like to establish with sleep medicine here. He states hissleep and "CPAP numbers" have been better in the past few weeks. Was started on Zoloft 25 mg after the of his . Feels like it never made a difference for him. States he occasionally feels sad or anxious but overall thinks his mood is stable and he is doing well with the support of his family. Patient is s/p bilateral knee replacements. Right knee was done 2 years ago and left knee 6-7 yearsago. Has not seen orthopedist for several years and has been doing well. Patient also has atonic bladder and performs self catheterizations. Needs to establish with urologylocally. Has had melanoma and is s/p multiple Mohs surgeries. Also reports a history of BCC. Was previously seeing derm every 6 months for skin checks. He denies any new or concerning lesions. Taking amlodipine and losartan for hypertension, which is well-controlled. Taking Lipitor for dyslipidemia. Had lab work done in October. Will try to get records. Has immunization record. UTD on flu shot for this year. Will scan into chart. Done with colon ca screening. Review of Systems: He denies chest pain, palpitations, shortness of breath, dizziness, or syncope. Objective BP 120/60 | Pulse 62 | Temp 35.9 C (96.7 F) (Tympanic) | Resp 18 | Ht 1.829 m (6') | Wt 88.1 kg(194 lb 1.9 oz) | SpO2 98% | BMI 26.33 kg/m | BSA 2.12 m Wt Readings from Last 3 Encounters: 04/08/23 88.1 kg (194 lb 1.9 oz) BP Readings from Last 3 Encounters: 04/08/23 120/60 General: Well-appearing, no acute distress, slightly hard of hearing Head: Normocephalic and atraumatic Eyes: No conjunctival injection, no scleral icterus, extraocular movements are intact Ears: External ear unremarkable, canals normal and tympanic membranes clear bilaterally Nose: Nasal mucosa pink and moist, nares patent bilaterally Throat/Mouth: Oral mucosa pink and moist, tongue normal in appearance without lesions and with symmetrical movement, pharynx normal in appearance Cardiovascular: Regular rhythm, normal rate at 72 Respiratory: Good respiratory effort, breath sounds equal and clear to auscultation bilaterally Abdomen: Soft, non-distended, non-tender, normoactive bowel sounds Extremities: No edema Skin: Warm and dry Neurological: Alert and oriented, no focal deficits noted Psychiatric: Appropriate mood and affect Assessment & Plan 1. Encounter for medical examination to establish care 2. Chronic atrial fibrillation (HCC) Well-controlled. Continue current medication(s). - CARDIOLOGY REFERRAL OP 3. Pacemaker - CARDIOLOGY REFERRAL OP 4. Essential hypertension Well-controlled. Continue current medication(s). 5. Atonic bladder Needs to establish with urology. Referral provided. - UROLOGY REFERRAL OP 6. Pure hypercholesterolemia Continue Lipitor. Will get labs from October. 7. History of melanoma - DERMATOLOGY REFERRAL OP 8. Obstructive sleep apnea of adult - SLEEP MEDICINE REFERRAL OP 9. Lower extremity edema Well-controlled. Continue current medication(s). 10. Situational depression Will discontinue Zoloft as he reports his mood is stable and he has not seen a difference with Zoloft. Encouraged to let me know if he is having depressive or anxious symptoms and we could considering restarting it and titrating to appropriate dose. 11. S/p total knee replacement, bilateral Stable. Defer orthopedic referral at this time. Follow Up: Return in about 6 months (around 10/08/2023) for routine follow-up. | Check-out note: Needs to sign records release. Has list of specialists. Multiple referrals entered. This note was electronically signed by Ana Maria Rivera MD I spent a total of 40-54 minutes (exact time 46 mins) on the date of service in preparation, delivery, and documentation of the care provided to Terry Beckham excluding any time spent in the performance of separately billed services. documented in this encounter Nursing Notes * Sandhya Ward LPN - 04/08/2023 9:47 AM EDT Terry Beckham presents as new patient to get established. Medications & HM reviewed/updated. Has a CPAP and needs a new sleep medicine dr as he just moved from [place] Has atonic bladder and uses self catheters. Needs referral for urology for medical products. Has pace maker and was due to see dr in April but will need to set up new dr for that as well. Referral for dermatology. documented in this encounter Plan of Treatment Upcoming Encounters Date Type Specialty Care Team Description 04/27/2023 Office Visit Sleep Disorders Lexie William, DO [address] [place] [address] 06/04/2023 Office Visit Cardiology Shaunna Ngo, DO 400 [facility] [place] [address] 10/08/2023 Office Visit Family Medicine Ana Maria Rivera MD 200 [place] [address] 11/25/2023 Office Visit Dermatology Savanna Boyce PA-C [address] [place] [address] [place] [address] 12/06/2023 Office Visit Urology Nikhil Hutchins MD [address] [place] [address] [place] [id number] Scheduled Referrals Name Type Priority Associated Diagnoses Orde r Schedule CARDIOLOGY REFERRAL OP Referral Within 10 days (routine) Chronic atrial fibrillation (HCC) Pacemaker Ordered: 04/08/2023 SLEEP MEDICINE REFERRAL OP Referral Within 10 days (routine) Obstructive sleep apnea of adult Ordered: 04/08/2023 DERMATOLOGY REFERRAL OP Referral Within 10 days (routine) History of melanoma Ordered: 04/08/2023 UROLOGY REFERRAL OP Referral Within 10 da ys (routine) Atonic bladder Ordered: 04/08/2023 Health Maintenance Due Date Last Done Comments [...] as of this encounter Visit Diagnoses Diagnosis Encounter for medical examination to establish care- Primary Chronic atrial fibrillation (HCC) Atrial fibrillation Pacemaker Cardiac pacemaker in situ Essential hypertension Unspecified essential hypertension Atonic bladder Atony of bladder Pure hypercholesterolemia History of melanoma Personal history of malignant melanoma of skin Obstructive sleep apnea of adult Obstructive sleep apnea (adult) (pediatric) Lower extremity edema Edema Situational depression S/p total knee replacement, bilateral documented in this encounter Care Teams Manager Water Wastewater Relationship Specialty Start Date End Date Ana Maria Rivera MD 200 [place] [address] PCP - General Family Medicine 04/08/23 documented as of this encounter
--- OUTSIDE RECORDS SUMMARY | 2023-07-01 04:14 | External Medical Summary | Summary of Care ---
Author Name Unknown Organization [facility] Address [address] [place] [address] Phone [phone] Care Team Providers Care Annealer Name Role Phone Ana Maria Rivera MD Primary Care Provider Reason for Visit * Reason Onset Date Comments Advice 04/08/2023 Encounter Details Date Type Department Care Team Description 04/08/2023 Telephone Family Practice [facility] 200 [place] [address] Ana Maria Rivera MD 200 [place] [address] Advice Allergies No known active allergiesdocumented as [...] get records from PCP and specialists in [place]. * Telephone Encounter - LILLIAM Douglas - 04/08/2023 12:32 PM EDT Tara called and said that they are a dental office from [place] and they got a fax 04/08 looking for patient's medical records, we think you may have sent it to the wrong location. Tara is going to disregard the paperwork unless you say otherwise. documented in this encounter Plan of Treatment Upcoming Encounters Date Type Specialty Care Team Description 04/27/2023 Office Visit Sleep Disorders Lexie William, DO [address] [facility] [place] [address] 06/04/2023 Office Visit Cardiology Shaunna Ngo DO 400 [facility] [place] [address] 10/08/2023 Office Visit Family Medicine Ana Maria Rivera MD 200 [place] [address] 11/25/2023 Office Visit Dermatology Savanna Boyce PA-C [address] [place] [address] [place] [address] 12/06/2023 Office Visit Urology Nikhil Hutchins MD [address] [place] [address] [place] [address] Health Maintenance Due [...] filedocumented as of this encounter Care Teams Annealer Relationship Specialty Start Date End Date Ana Maria Rivera MD [address] [place] [address], [place] [address] PCP - General Family Medicine 04/08/23 documented as of this encounter
[2023-07-01 06:25] LABS: Hematocrit (blood only) 33.4 % (42.0-52.0); Hemoglobin 11.3 g/dl (14.0-18.0); Mean Corpuscular Hemoglobin 29.4 pg (25.0-34.0); Mean Corpuscular Hgb Conc 33.8 g/dL (32.0-36.0); Mean Platelet Volume 10.6 fL (9.4-12.4); Platelet Count 160 K/uL (130-400); RDW Coefficient of Variation 14.7 % (11.5-14.5); RDW Standard Deviation 46.7 fL (36.4-46.3); Red Blood Count 3.84 M/uL (4.70-6.10); White Blood Count 17.09 K/ul (4.8-10.8)
--- NOTE | 2023-07-01 06:45 | XRay Report ---
XR chest 1V portable HISTORY: fall COMPARISON: None. FINDINGS: The lungs are clear. Cardiac silhouette is normal in size. No pleural effusions. No pneumot horax. Left-sided pacemaker/defibrillator. No acute fractures. IMPRESSION: No acute process. ACT 112: Negative or not required by law. Electronically signed by: Robinson Vázquez M.D. 07/01/2023 6:43 AM
[2023-07-01 06:51] LABS: BUN Creatinine Ratio 22.2 (10-20); Calcium 8.7 mg/dl (8.6-10.3); Creatinine Clr Calc Pharmacy 74.5 ml/min; Est GFR (African American) 94.6 ml/min; Est GFR (Non-African American) 81.6 ml/min; Potassium 3.4 mmol/L (3.5-5.1)
[2023-07-01 07:14] LABS: Basophils # (auto) 0.04 K/uL (0.00-0.20); Basophils % (auto) 0.2 %; Immature Granulocytes # (auto) 0.13 K/uL (0.01-0.20); Immature Granulocytes % (auto) 0.8 %; Lymphocytes # (auto) 0.72 K/uL (1.20-3.40); Lymphocytes % (auto) 4.2 %; Monocytes # (auto) 0.69 K/uL (0.11-0.59); Neutrophils # (auto) 15.51 K/uL (1.40-6.50); Neutrophils % (auto) 90.8 %
[2023-07-01] MEDS: FUROSEMIDE 40 MG TAB PO SCH (09:11)
[2023-07-01] MEDS: RIVAROXABAN 20 MG TAB PO SCH (09:11)
[2023-07-01] MEDS: LOSARTAN POTASSIUM 50 MG TAB PO SCH (09:11)
[2023-07-01] MEDS: amLODIPine BESYLATE 5 MG TAB PO SCH (09:11)
[2023-07-01] MEDS: CYANOCOBALAMIN (B-12) 500 MCG TABLET PO SCH (09:11)
[2023-07-01] MEDS: MULTIVITAMIN TAB PO SCH (09:11)
[2023-07-01] MEDS: MAGNESIUM OXIDE 400 MG TAB PO SCH (09:11)
[2023-07-01] MEDS: carvediloL 25 MG TAB PO SCH ×2 (09:11→20:03)
[2023-07-01] MEDS: ATORVASTATIN 10 MG TAB PO SCH (09:11)
[2023-07-01] MEDS: DOCUSATE SODIUM 100 MG CAP PO SCH ×2 (09:12→20:03)
[2023-07-01] MEDS ORDERED: POTASSIUM CHLORIDE CRTAB 20 MEQ TABCR PO STA (12:27)
--- NOTE | 2023-07-01 12:36 | Hospitalist Progress Note ---
Date of Service July 01, 2023 Assessment & Plan (1) UTI (urinary tract infection): Plan 82-year-old male with PMH of PAF on Xarelto, HTN, SLE, atonic bladder with straight cath, pacemaker presented to the hospital from [facility] after a fall. While walking laps as a part of his normal exercise, he slipped on a piece of carpet and fell backwards and hit the back of his head. He is being managed for the following: (1) UTI (urinary tract infection) likely due to self catheterization: (2) Likely metabolic encephalopathy: (3) Atonic bladder: -Admitted to med surg with tele -Patient's straight caths at home 6 times per day, this increases risk for UTI -UA appears suspicious for infection, cloudy appearance to the urine with trace blood, 3+ leuk esterase, > 30WBC, and only 5-10 epis. -Started on Rocephin 06/30. Await urine cultures and adjust antibiotics -WBC trending down. Mentation has improved. (4) Fall: - CT head was negative for acute changes, shows atrophy and microvascular ischemic changes -PT/OT consults - Sounds to be mechanical fall no presyncopal symptoms, no LOC, no injury is visible on exam (5) Paroxysmal atrial fibrillation: -History of such, chronic, stable -Continue on Xarelto - (6) Pacemaker: Hx of such, reports has 2 months until battery replacement already scheduled. Follows with Dr. Ngo as outpatient per [facility] review (7) Hypokalemia: 3.2 on admission. Monitor replete. (8) HTN (hypertension): BP stable, continue Lasix 40 mg daily, losartan, amlodipine. (9) HLD (hyperlipidemia): Continue atorvastatin 10 mg daily. Chronic. Stable. (10) LILLIAM (obstructive sleep apnea): c/w cpap. DVT ppx: scds CODE: DNR/DNI Dispo: PT/OT, CM to assist with DC plan. Admission and Anticipated Discharge Date Admission Date: June 30, 2023 Subjective Patient was seen and examined at bedside. Patient was sitting up in bed, on room air, resting comfortably, not in any acute distress. Patient is alert and oriented x 3, denies pain/headache/chest pain. Reports eating okay and moving bowels okay. Patient reports feeling better. Physical Exam Physical Exam: GENERAL: Alert and oriented x3. NAD, on RA. HEENT: No pallor, no icterus. Pupils equal, round and reactive to light. Oral mucosa moist. NECK: No JVD, no neck masses. HEART: S1 and S2 heard. Regular rate and rhythm. No murmur, no gallop. RESPIRATORY SYSTEM: Normal AP diameter. No accessory muscle use. No wheezing, no crackles. ABDOMEN: Soft, bowel sounds present, nontender, no distention. CENTRAL NERVOUS SYSTEM: No facial droop. Speech is clear. Obeys simple commands. Moves extremities. EXTREMITIES: No edema, no erythema seen. Results & Data Results & Data Vital Signs (Past 12 Hours) Vital Signs Temp Pulse Pulse Resp BP Pulse Ox O2 Del Method 07/01/23 11:49 36.5 C 62 16 111/64 94 Room Air 07/01/23 07:44 36.9 C 63 18 132/64 94 Room Air 07/01/23 06:00 61 07/01/23 02:57 38.3 C H 83 18 148/70 H 92 Room Air (1) UTI (urinary tract infection) Urinary tract infection type: site unspecified Hematuria presence: with hematuria Qualified Code(s): N39.0 - Urinary tract infection, site not specified; R31.9 - Hematuria, unspecified
--- NOTE | 2023-07-01 12:57 | Electrocardiogram Report ---
Test Reason : Blood Pressure : / mmHG Vent. Rate : 089 BPM Atrial Rate : 089 BPM P-R Int : 130 ms QRS Dur : 162 ms QT Int : 406 ms P-R-T Axes : 000 232 041 degrees QTc Int : 493 ms Atrial-sensed ventricular-paced rhythm Biventricular pacemaker detected Abnormal ECG No previous ECGs available Confirmed by Joseph Mcclain ([id number]) on 07/01/2023 12:56:23 PM Referred By: [facility] Confirmed By:Joseph Mcclain
[2023-07-01] MEDS ORDERED: cefTRIAXone SODIUM 2,000 MG in DEXTROSE 5 % MINI-B 50 ML IV SCH (20:00)
[2023-07-02 06:33] LABS: Hematocrit (blood only) 32.8 % (42.0-52.0); Hemoglobin 11.1 g/dl (14.0-18.0); Mean Corpuscular Hemoglobin 29.4 pg (25.0-34.0); Mean Corpuscular Hgb Conc 33.8 g/dL (32.0-36.0); Mean Corpuscular Volume 86.8 fL (80.0-100.0); Mean Platelet Volume 10.9 fL (9.4-12.4); Platelet Count 144 K/uL (130-400); RDW Coefficient of Variation 14.6 % (11.5-14.5); RDW Standard Deviation 46.8 fL (36.4-46.3); Red Blood Count 3.78 M/uL (4.70-6.10); White Blood Count 7.71 K/ul (4.8-10.8)
[2023-07-02 07:00] LABS: Calcium 8.4 mg/dl (8.6-10.3); Magnesium 2.1 mg/dl (1.7-2.4); Potassium 3.8 mmol/L (3.5-5.1)
[2023-07-02 07:06] LABS: BUN Creatinine Ratio 24.1 (10-20); Creatinine Clr Calc Pharmacy 72.7 ml/min; Est GFR (African American) 93.6 ml/min; Est GFR (Non-African American) 80.8 ml/min; Phosphorus 2.9 mg/dl (2.5-4.9)
[2023-07-02] MEDS: DOCUSATE SODIUM 100 MG CAP PO SCH (08:28)
[2023-07-02] MEDS: LOSARTAN POTASSIUM 50 MG TAB PO SCH (08:28)
[2023-07-02] MEDS: carvediloL 25 MG TAB PO SCH (08:28)
[2023-07-02] MEDS: MULTIVITAMIN TAB PO SCH (08:29)
[2023-07-02] MEDS: amLODIPine BESYLATE 5 MG TAB PO SCH (08:29)
[2023-07-02] MEDS: RIVAROXABAN 20 MG TAB PO SCH (08:29)
[2023-07-02] MEDS: ATORVASTATIN 10 MG TAB PO SCH (08:29)
[2023-07-02] MEDS: FUROSEMIDE 40 MG TAB PO SCH (08:29)
[2023-07-02] MEDS: MAGNESIUM OXIDE 400 MG TAB PO SCH (08:29)
[2023-07-02] MEDS: CYANOCOBALAMIN (B-12) 500 MCG TABLET PO SCH (08:29)
--- NOTE | 2023-07-02 12:09 | Discharge Summary ---
Date of Service July 02, 2023 Admission HPI Per Admitting Provider This is an 82 yo M with PMhx of PAF on xarelto, HTN, HLD, atonic bladder with straight cath, pacemaker, who presents from [facility] after a fall. . Pt was walking laps inside the buildings as part of normal exercise regimen today at [facility] and while he was walking quickly, he slipped on a piece of carpet and fell backwards and hit the back of his head. Denies presyncopal sx. He admits to having chills but denies fever. Staff reported disorientation vs dazed after his fall, he was having trouble standing, and had difficult getting into his sons car. Pts son, Alessio, present at bedside supports the history. Pt notes having atonic bladder where he straight caths 6x daily, and has for many years. He is surprised to hear that he has a UTI today with UA reports. Pt has had UTI in the past but has many years since then, but traditionally there had been confusion as one of the first signs of a UTI. Pt notes intermittent dysuria and decreased urine outs at night, but hasn't noticed anything today like that. He feels well currently. Denies any pain. Pt is able to recall his home medications and dosages without difficulty. PT reports feeling psychologically depressed since last September 2022, and feels he's had a lot of trouble since then. Follows with a therapist weekly as outpatient. He admits to getting worked up at times, and says he tried to get things done very quickly, moves quickly. bumped her head prior to passing away, so feels this is adding to his level of anxiety. He moved into the area from [place] to be closer to his son's family within months after this huge life change. Admission Exam Per Admitting Provider General: awake, alert, no apparent distress, white, male Head: Normocephalic, atraumatic ENT: PERRL, EOMI, no pharyngeal exudate, mucous membranes moist Chest: Clear to auscultation, on room air, no adventitious breath sounds Cardiac: Regular rate and rhythm, + pacemaker Left chest wall, no murmur, no JVD, normal peripheral pulses, good capillary refill Abdominal: NABS x 4 quadrants, soft, nondistended, nontender to palpation, no rebound or guarding Extremities: Normal inspection, no peripheral edema or erythema, calfs nontender to palpation Psych: Normal mood and affect Neuro: AAO x 3, strength intact bilaterally and rated 5/5, no motor deficits, speech is clear, no peripheral sensory deficits Principal Diagnosis UTI likely due to self-catheterization Metabolic encephalopathy, resolved Atonic bladder Fall Discharge Exam GENERAL: Alert and oriented x3. NAD, on RA. HEENT: No pallor, no icterus. Pupils equal, round and reactive to light. Oral mucosa moist. NECK: No JVD, no neck masses. HEART: S1 and S2 heard. Regular rate and rhythm. No murmur, no gallop. RESPIRATORY SYSTEM: Normal AP diameter. No accessory muscle use. No wheezing, no crackles. ABDOMEN: Soft, bowel sounds present, nontender, no distention. CENTRAL NERVOUS SYSTEM: No facial droop. Speech is clear. Obeys simple commands. Moves extremities. EXTREMITIES: No edema, no erythema seen. Discharge Data Allergies Allergy/AdvReac Type Severity Reaction Status Date / Time No Known Allergies Allergy Verified 06/30/23 19:43 Consultations 06/30/23 19:41 ED Decision to Admit Stat Ordered Studies 06/30/23 16:32 CT cervical spine wo con Stat CT head/brain wo con Stat Hospital Course (1) UTI (urinary tract infection): Plan 82-year-old male with PMH of PAF on Xarelto, HTN, SLE, atonic bladder with straight cath, pacemaker presented to the hospital from [facility] after a fall. While walking laps as a part of his normal exercise, he slipped on a piece of carpet and fell backwards and hit the back of his head. He was managed for the following: (1) UTI (urinary tract infection) likely due to self catheterization: (2) Likely metabolic encephalopathy: (3) Atonic bladder: -Admitted to med surg with tele -Patient's straight caths at home 6 times per day, this increases risk for UTI -UA appears suspicious for infection, cloudy appearance to the urine with trace blood, 3+ leuk esterase, > 30WBC, and only 5-10 epis. -Started on Rocephin 06/30. to PO atb on dc to complete the course. -WBC trended down to normal. Mentation has improved. (4) Fall: - CT head was negative for acute changes, shows atrophy and microvascular ischemic changes -PT/OT consults - Sounds to be mechanical fall no presyncopal symptoms, no LOC, no injury is visible on exam -c/w PT for balance and strengthening on discharge (5) Paroxysmal atrial fibrillation: -History of such, chronic, stable -Continue on Xarelto - (6) Pacemaker: Hx of such, reports has 2 months until battery replacement already scheduled. Follows with Dr. Ngo as outpatient per EPIC review (7) Hypokalemia: 3.2 on admission. Monitor replete. (8) HTN (hypertension): BP stable, continue Lasix 40 mg daily, losartan, amlodipine. (9) HLD (hyperlipidemia): Continue atorvastatin 10 mg daily. Chronic. Stable. (10) LILLIAM (obstructive sleep apnea): c/w cpap. DVT ppx: scds CODE: DNR/DNI Dispo: PT/OT, CM to assist with DC plan. Patient is being discharged to personal half-way with following instruction at the point of discharge: Follow-up with your primary care physician within a week time and likely you will need labs CBC/CMP/magnesium/phosphorus. You were noted to have UTI, you will be discharged on antibiotic to complete the course. Probiotics will be added. For your fall and likely balance issues, continue with physical therapy. Take your medications as prescribed. Please make sure that you are able to get your medications today by calling your pharmacy before you leave the hospital so that your treatment continuity is not broken. Home Health Attestation I certify that this patient is under my care and that I, or a physicians assistant professor of forestry working with me, had a face to-face encounter that meets the home health [id number] encounter requirements with this patient. The encounter with the patient was in whole, or in part, for the following medical condition, which is the primary reason for home health care (list medical condition): I certify that, based on my findings, the following services are medically necessary home health services: My clinical findings support the need for the above services because: Further, I certify that my clinical findings support that this patient is ho mebound (i.e. absences from home require considerable and taxing effort and are for medical reasons or methodist services or infrequently or of short duration when for other reasons) because: Certification for Home Health Services: Based on the above findings, I certify that this patient is confined to the home and needs intermittent residential care, physical therapy and/or speech therapy or continues to need occupational therapy. The patient is under my care, and I have initiated the establishment of the plan of care. This patient will be followed by a physician who will periodically review the plan of care. Total Time Total Time Spent Total Time Spent (In Minutes): 45 Discharge Plan Discharge Items Patient Disposition: Personal Long Term Reason For Visit: AMS, POSS UTI Discharge Diagnosis: UTI likely due to self-catheterization Metabolic encephalopathy, resolved Atonic bladder Fall Activity: As commented below Activity Comment: Continue with physical therapy. Non-emergency contact: Primary Care Provider Call non-emergency contact if: you have any medication questions and your temperature is above 101.5 Follow-up/Referrals: Ana Maria Rivera MD [Primary Care Provider] - (Date & Time 07/08/2023 2:20 PM Provider Ana Maria Rivera MD Department [facility] ) Diet: Regular Diet Texture: Easy to Chew Addtl Attending Provider Instructions: Follow-up with your primary care physician within a week time and likely you will need labs CBC/CMP/magnesium/phosphorus. You were noted to have UTI, you will be discharged on antibiotic to complete the course. Probiotics will be added. For your fall and likely balance issues, continue with physical therapy. Take your medications as prescribed. Please make sure that you are able to get your medications today by calling your pharmacy before you leave the hospital so that your treatment continuity is not broken. Pending Studies at Discharge: No Stand-Alone Forms: My [facility], Smoking Cessation Skilled Items Patient informed of condition?: Yes DNR: Yes Discharge Level of Care: Other Communicable Disease: No Discharge Prognosis: Stable Lines: None Urinary Catheter: No Medications and DC Order Prescriptions: New cefdinir 300 mg capsule 300 mg PO BID 7 Days Qty: 14 0RF Probiotic 3 billion cell capsule 3,000 mmu cells PO DAILY 14 Days Qty: 14 0RF Rx Instructions: administer with a meal Continued furosemide 40 mg tablet 40 mg PO QAM carvedilol 25 mg tablet 25 mg PO BID atorvastatin 10 mg tablet 10 mg PO QAM amlodipine 5 mg tablet 5 mg PO QAM losartan 100 mg tablet 100 mg PO QAM Xarelto 20 mg tablet 20 mg PO QAM multivitamin Tablet 1 tab PO DAILY cyanocobalamin (vitamin B-12) [Vitamin B-12] 1,000 mcg Tablet 1,000 mcg PO DAILY docusate sodium 100 mg Capsule 100 mg PO BID magnesium 200 mg Tablet 200 mg PO DAILY Discharge Orders: Discharge Order (Routine); Ordered 07/02/23 Ordered By: Nura Crystal Admission Data Admit Date/Time: 06/30/23 20:16 Attending Provider: Nura Crystal Admit Provider: Oanh Suarez Primary Care Provider: Ana Maria Rivera Other Providers: Marcus Rogers
[2023-07-02] MEDS ORDERED: cefTRIAXone SODIUM 2,000 MG in DEXTROSE 5 % MINI-B 50 ML IV ONE (13:00)
== END 2023-07-02 13:55 | disposition home or self-care (01) | DRG 698 ==
LOC: ED 16:24 → 2W 20:16 → SUATTDRO 20:16 → 2W 22:17

== ENCOUNTER 2024-05-27 19:03 | Observation (INO) ==
[2024-05-27 19:56] LABS: Appearance Urine Clear (Clear); Bacteria Urine Automated None Seen (None Seen); Bilirubin Urine Negative (Negative); Blood Urine Negative (Negative); Cast Urine Automated 0-2 /lpf (0-2); Color Urine Yellow; Epithelial Cell Urine Auto 0-2 /hpf (0-2); Glucose Urine UA Negative (Negative); Ketones Urine 1+ (Negative); Leukocyte Esterase Urine Trace (Negative); Nitrite Urine Negative (Negative); Protein Urine Trace (Negative); Specific Gravity Urine 1.017 (1.000-1.030); Urobilinogen Urine Negative (Negative)
[2024-05-27 20:12] LABS: Basophils # (auto) 0.02 K/uL (0.00-0.20); Basophils % (auto) 0.3 %; Hematocrit (blood only) 35.3 % (42.0-52.0); Hemoglobin 11.8 g/dl (14.0-18.0); Immature Granulocytes # (auto) 0.05 K/uL (0.01-0.20); Immature Granulocytes % (auto) 0.7 %; Lymphocytes # (auto) 0.44 K/uL (1.20-3.40); Mean Corpuscular Hemoglobin 29.1 pg (25.0-34.0); Mean Corpuscular Hgb Conc 33.4 g/dL (32.0-36.0); Mean Corpuscular Volume 86.9 fL (80.0-100.0); Mean Platelet Volume 10.7 fL (9.4-12.4); Monocytes # (auto) 0.79 K/uL (0.11-0.59); Monocytes % (auto) 10.7 %; Neutrophils # (auto) 6.05 K/uL (1.40-6.50); Neutrophils % (auto) 82.3 %; Platelet Count 164 K/uL (130-400); RDW Standard Deviation 44.4 fL (36.4-46.3); Red Blood Count 4.06 M/uL (4.70-6.10); White Blood Count 7.35 K/ul (4.8-10.8)
[2024-05-27 20:32] LABS: Bilirubin Direct 0.2 mg/dl (0-0.2)
[2024-05-27 20:33] LABS: Albumin Level 4.1 gm/dl (3.4-5.0); BUN Creatinine Ratio 19.5 (10-20); Bilirubin,Total 1.9 mg/dl (0.2-1.0); Calcium 8.8 mg/dl (8.6-10.3); Creatinine Clr Calc Pharmacy 72.3 ml/min; Magnesium 1.9 mg/dl (1.7-2.4); Potassium 3.7 mmol/L (3.5-5.1); Total Protein 6.7 gm/dl (6.0-8.3)
[2024-05-27 20:36] LABS: Adenovirus PCR Not Detected (NotDetected); Bordetella parapertussis PCR Not Detected (NotDetected); Bordetella pertussis PCR Not Detected (NotDetected); Chlamydia pneumoniae PCR Not Detected (NotDetected); Coronavirus 229E PCR Not Detected (NotDetected); Coronavirus CoV-2 (COVID19)PCR DETECTED (NotDetected); Coronavirus HKU1 PCR Not Detected (NotDetected); Coronavirus NL63 PCR Not Detected (NotDetected); Coronavirus OC43PCR Not Detected (NotDetected); Human Metapneumovirus PCR Not Detected (NotDetected); Influenza A PCR Not Detected (NotDetected); Influenza B PCR Not Detected (NotDetected); Mycoplasma pneumoniae PCR Not Detected (NotDetected); Parainfluenza Virus 1 PCR Not Detected (NotDetected); Parainfluenza Virus 2 PCR Not Detected (NotDetected); Parainfluenza Virus 3 PCR Not Detected (NotDetected); Parainfluenza Virus 4 PCR Not Detected (NotDetected); Respiratory Syncytial VirusPCR Not Detected (NotDetected); Rhinovirus/Enterovirus PCR Not Detected (NotDetected)
[2024-05-27] MEDS: ACETAMINOPHEN 500 MG TAB PO STA (21:53)
--- NOTE | 2024-05-27 22:31 | XRay Report ---
Exam(s): XR CXR 1 VIEW EXAM: XR Chest, 1 View CLINICAL HISTORY: Sepsis. TECHNIQUE: Frontal view of the chest. COMPARISON: Chest radiograph 06/30/2023 FINDINGS: Lungs: Unremarkable. No consolidation. Pleural space: Unremarkable. No pneumothorax. Heart: Cardiomegaly. Mediastinum: Unremarkable. Normal mediastinal contour. Bones/joints: Unremarkable. No acute fracture. Tubes, lines and devices: There is a left cardiac defibrillator. IMPRESSION: Cardiomegaly. Electronically signed by: Lizbeth Martinez MD 05/27/24 22:30 PM
--- NOTE | 2024-05-27 23:11 | Emergency Department Note ---
Impression & Plan COVID-19, Acute confusion ED Provider Note NAME: ELIZABET FINN AGE: 83 SEX: Male INFORMANT: Patient and family ED PROVIDER(S): Nicho Rivera MD CHIEF COMPLAINT: Confusion PLAN: Disposition: Admitted Outpatient prescription management: none Referral: None MEDICAL DECISION MAKING: Patient presented because of confusion. There was some concern that he might have been exposed to COVID but also about a history of UTI. He had some urinary symptoms that were mild but with his history of catheterization a workup was initiated. Patient's urinalysis showed some red cells and white cells but no bacteria. A culture was sent. [employer] testing performed and the patient was found to have COVID-19. Chest x-ray showed no pneumonia. He had been given Tylenol due to his borderline fever. In light of his mild confusion and COVID diagnosis further management in the hospital was felt to be appropriate. consultation was made with the [facility] service, Dr. Bonilla. Patient was evaluated in the ER and admitted for further management Care/management discussed with: senior hr manager Level of care consideration(s): After review of the information above and other included data, I feel the patient requires escalation of care to admission Triage Nursing notes: reviewed and agree them. Vital Signs: reviewed and remarkable for fever Additional History obtained from: Patient's family who notes confusion today. Patient was doing well yesterday. Chronic Medical/Social Conditions affecting care: Chronic straight cath requirement Prior/ Outside/ External records reviewed: none Differential Diagnosis: Infection, hypoglycemia, electrolyte abnormalities, overdose, toxicologic, cardiac sources, intracerebral event, neurologic, trauma, as well as other pathologies. Diagnostics, independently interpreted by me: ECG: Twelve-lead ECG reveals a paced rhythm at [address] elevation or depression. Cardiac Monitoring: Cardiac monitoring ordered by me: The patient was placed on continuous cardiac monitoring and observed. It revealed a paced rhythm at 69 bpm. Medical decision rules: none Imaging studies: Chest x-ray. Findings: A chest x-ray was performed and revealed no pneumothorax, effusion, infiltrate, pulmonary edema, free air under the diaphragm, or wide mediastinum. Impression: No acute disease. HPI: 83 year old Male arrives for evaluation of confusion. This started today and is mild per the son. Patient was doing well yesterday. Patient does have to straight cath multiple times per day and has had urinary tract infection issues in the past. He noted some discomfort and was concerned about another UTI possibly. He is also residing at [facility] where multiple people have been diagnosed with COVID. The patient also notes the following associated symptoms, congestion and runny nose. The patient has taken no medication for relieving factors. Current pain is rated as 0/10. Pt denies LOC, headache, fevers, chills, diaphoresis, visual changes, neck pain, chest pain, breathing difficulties, nausea, vomiting, abdominal pain, back pain, melena, hematochezia, numbness, focal weakness, lymphadenopathy, rash, or other complaints. PAST MEDICAL HISTORY: See Below, UTI, hypertension PAST SURGICAL HISTORY: See Below, pacemaker SOCIAL HISTORY: See Below, retired HOME MEDICATIONS: See Below ALLERGIES: See Below VITALS: See Below PHYSICAL EXAMINATION: GENERAL: Awake, alert, minimally ill-appearing, in no distress HENT: Normocephalic, atraumatic. Oropharynx unremarkable. EYES: Normal conjunctiva. Sclera non-icteric. NECK: Inspection normal. Non-tender. Supple. No nuchal rigidity. FROM. No masses. RESPIRATORY: Clear to auscultation. No wheezes. No rales. Normal respiratory effort. CARDIAC: Normal rate. Normal rhythm. No murmurs. No rubs. Extremities warm and well perfused. Pulses equal. No JVD. GI: Soft, non-distended. No tenderness to palpation. No rebound or guarding. No masses. MUSCULOSKELETAL: Atraumatic. Chest examination reveals no tenderness. The back is symmetrical on inspection without obvious abnormality. There is no CVA tenderness to palpation. No joint edema. LOWER EXTREMITIES: Calves are equal size bilaterally and non-tender. No edema. No discoloration. NEURO: Normal sensorium. Generally weak but no focal sensory or motor deficits noted. SKIN: No rash or jaundice noted. PROCEDURES: none CRITICAL CARE: none OBSERVATION NOTE: none Past Med/Surg History Problem List (Updated 05/27/24 @ 23:11 by Nicho Rivera MD) Acute confusion (Acute) COVID-19 (Acute) AMS (altered mental status) (Acute) Fall (Acute) Hypokalemia (Acute) Leukocytosis (Acute) Altered mental status, unspecified Hypokalemia Pacemaker UTI (urinary tract infection) (Acute) Fall HTN (hypertension) LILLIAM (obstructive sleep apnea) HLD (hyperlipidemia) Paroxysmal atrial fibrillation Medical History (Updated 05/27/24 @ 23:11 by Nicho Rivera MD) History of tobacco use Atonic bladder Surgical History (Updated 06/30/23 @ 20:17 by Maria Antonia Clement PA-C) S/P repair of inguinal hernia History of bilateral knee replacement Social History Smoking Status: Never smoker Tobacco Type: Cigarettes Second Hand Exposure: No; Do You Dip or Chew Tobacco: No; Hx Alcohol Use: Yes Alcohol type: beer Hx Substance Use: No Preferred Language: Turkish Communication Ability: Effective 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: No Beliefs That Will Affect Care: None Current Living Situation: Alone Feels Safe at Home: Yes Assistive Devices: None Allergies Allergies Allergy/AdvReac Type Severity Reaction Status Date / Time No Known Allergies Allergy Verified 11/24/23 09:04 Home Meds Home Medications Medication Instructions Recorded Confirmed amlodipine 5 mg tablet 5 mg PO QAM 06/30/23 11/24/23 atorvastatin 10 mg tablet 10 mg PO QAM 06/30/23 11/24/23 carvedilol 25 mg tablet 25 mg PO BID 06/30/23 11/24/23 cyanocobalamin (vitamin B-12) 1,000 mcg PO DAILY 06/30/23 11/24/23 1,000 mcg tablet (Vitamin B-12) docusate sodium 100 mg capsule 100 mg PO BID 06/30/23 11/24/23 furosemide 40 mg tablet 40 mg PO QAM 06/30/23 11/24/23 losartan 100 mg tablet 100 mg PO QAM 06/30/23 11/24/23 magnesium 200 mg tablet 200 mg PO DAILY 06/30/23 11/24/23 multivitamin 1 tab PO DAILY 06/30/23 11/24/23 rivaroxaban 20 mg tablet (Xarelto) 20 mg PO QAM 06/30/23 11/24/23 Results & Data (ED) Vital Signs Vital Signs - 24 hr 05/27/24 19:06 05/27/24 19:26 05/27/24 19:27 Temperature 36.2 C L 37.6 C H Temperature Source Temporal Artery Scan Oral Pulse Rate 69 70 Pulse Rate [Apical] 69 Pulse Rate from SpO2 Sensor Pulse Rhythm Regular Pulse Strength Normal Respiratory Rate 18 18 17 Respiratory Effort / Characteristics Non-Labored Spontaneous Respiratory Depth Normal Respiratory Pattern Regular Blood Pressure 146/75 H Blood Pressure [Right Arm] 143/76 H Blood Pressure Mean 98 Blood Pressure Mean [Right Arm] 98 Blood Pressure Position Sitting Pulse Oximetry 95 95 96 Oxygen Delivery Method Room Air Room Air Sepsis Recent Fever Within 48 Hours Yes Sepsis New/Unexplained Change in Mental Status N/A Sepsis Action Taken by Nursing No Action Required 05/27/24 19:27 05/27/24 19:29 05/27/24 19:45 Temperature Temperature Source Pulse Rate 65 75 68 Pulse Rate [Apical] Pulse Rate from SpO2 Sensor 69 Pulse Rhythm Pulse Strength Respiratory Rate 20 19 Respiratory Effort / Characteristics Respiratory Depth Respiratory Pattern Blood Pressure 143/76 H 135/70 Blood Pressure [Right Arm] Blood Pressure Mean 98 80 Blood Pressure Mean [Right Arm] Blood Pressure Position Pulse Oximetry 97 95 Oxygen Delivery Method Sepsis Recent Fever Within 48 Hours Sepsis New/Unexplained Change in Mental Status Sepsis Action Taken by Nursing 05/27/24 20:15 05/27/24 20:32 05/27/24 20:41 Temperature Temperature Source Pulse Rate 67 66 65 Pulse Rate [Apical] Pulse Rate from SpO2 Sensor 67 66 64 Pulse Rhythm Pulse Strength Respiratory Rate 21 12 20 Respiratory Effort / Characteristics Respiratory Depth Respiratory Pattern Blood Pressure 123/73 109/67 129/62 Blood Pressure [Right Arm] Blood Pressure Mean 89 81 84 Blood Pressure Mean [Right Arm] Blood Pressure Position Pulse Oximetry 93 94 95 Oxygen Delivery Method Sepsis Recent Fever Within 48 Hours Sepsis New/Unexplained Change in Mental Status Sepsis Action Taken by Nursing 05/27/24 21:17 05/27/24 22:00 05/27/24 22:18 Temperature Temperature Source Pulse Rate 66 65 69 Pulse Rate [Apical] Pulse Rate from SpO2 Sensor 63 Pulse Rhythm Pulse Strength Respiratory Rate 24 26 H 19 Respiratory Effort / Characteristics Respiratory Depth Respiratory Pattern Blood Pressure 126/62 124/59 L 126/64 Blood Pressure [Right Arm] Blood Pressure Mean 83 80 84 Blood Pressure Mean [Right Arm] Blood Pressure Position Pulse Oximetry 95 Oxygen Delivery Method Sepsis Recent Fever Within 48 Hours Sepsis New/Unexplained Change in Mental Status Sepsis Action Taken by Nursing Laboratory Data 05/27/24 19:47 05/27/24 19:47 Lab Results 05/27/24 05/27/24 05/27/24 Range/Units 19:25 19:36 19:47 WBC 7.35 (4.8-10.8) K/ul RBC 4.06 L (4.70-6.10) M/uL Hgb 11.8 L (14.0-18.0) g/dl Hct 35.3 L (42.0-52.0) % MCV 86.9 (80.0-100.0) fL MCH 29.1 (25.0-34.0) pg MCHC 33.4 (32.0-36.0) g/dL RDW Std Deviation 44.4 (36.4-46.3) fL RDW Coeff of Lizzie 14.0 (11.5-14.5) % Plt Count 164 (130-400) K/uL MPV 10.7 (9.4-12.4) fL Immature Gran % (Auto) 0.7 % Neut % (Auto) 82.3 % Lymph % (Auto) 6.0 % [place] % (Auto) 10.7 % Eos % (Auto) 0.0 % Baso % (Auto) 0.3 % Neut # (Auto) 6.05 (1.40-6.50) K/uL Lymph # (Auto) 0.44 L (1.20-3.40) K/uL [place] # (Auto) 0.79 H (0.11-0.59) K/uL Eos # (Auto) 0.00 (0.00-0.50) K/uL Baso # (Auto) 0.02 (0.00-0.20) K/uL Immature Gran # (Auto) 0.05 (0.01-0.20) K/uL Sodium 133 L (136-145) mmol/L Potassium 3.7 (3.5-5.1) mmol/L Chloride 100 (98-107) mmol/L Carbon Dioxide 24 (21-32) mmol/L Anion Gap 9 (3-11) BUN 16 (6-23) mg/dl Creatinine 0.82 (0.6-1.4) mg/dl Est Cr Clr Drug Dosing 72.3 ml/min eGFR 86.08 BUN/Creatinine Ratio 19.5 (10-20) Glucose 161 H (70-99(Fasting)) mg/dl Lactate 1.0 (0.4-2.0) mmol/L Calcium 8.8 (8.6-10.3) mg/dl Magnesium 1.9 (1.7-2.4) mg/dl Total Bilirubin 1.9 H (0.2-1.0) mg/dl Direct Bilirubin 0.2 (0-0.2) mg/dl AST 26 (13-39) U/L ALT 25 (7-52) U/L Alkaline Phosphatase 55 (34-104) U/L Troponin I High Sens 24.0 H (0-20) pg/ml Total Protein 6.7 (6.0-8.3) gm/dl Albumin 4.1 (3.4-5.0) gm/dl Procalcitonin < 0.02 (0-0.5) ng/ml Urine Color Yellow Urine Appearance Clear (Clear) Urine pH 7.0 (4.5-7.5) Ur Specific [place] 1.017 (1.000-1.030) Urine Protein Trace H (Negative) Urine Glucose (UA) Negative (Negative) Urine Ketones 1+ H (Negative) Urine Blood Negative (Negative) Urine Nitrite Negative (Negative) Urine Bilirubin Negative (Negative) Urine Urobilinogen Negative (Negative) Ur Leukocyte Esterase Trace H (Negative) Urine WBC (Auto) 6-10 H (0-5) /hpf Urine RBC (Auto) 6-10 H (0-2) /hpf U Hyaline Cast (Auto) 0-2 (0-2) /lpf U Epithel Cells (Auto) 0-2 (0-2) /hpf Urine Bacteria (Auto) None Seen (None Seen) Adenovirus (PCR) Not Detected (NotDetected) B. pertussis DNA (PCR) Not Detected (NotDetected) B.parapertussis DNA PCR Not Detected (NotDetected) C. pneumoniae DNA (PCR) Not Detected (NotDetected) Coronavirus OC43 (PCR) Not Detected (NotDetected) Coronavirus HKU1 (PCR) Not Detected (NotDetected) Coronavirus 229E (PCR) Not Detected (NotDetected) SARS-CoV-2 (PCR) DETECTED A (NotDetected) Coronavirus NL63 (PCR) Not Detected (NotDetected) Human Metapneumovir PCR Not Detected (NotDetected) Influenza Type A (PCR) Not Detected (NotDetected) Influenza Type B (PCR) Not Detected (NotDetected) M. pneumoniae (PCR) Not Detected (NotDetected) Parainfluenza 1 (PCR) Not Detected (NotDetected) Parainfluenza 2 (PCR) Not Detected (NotDetected) Parainfluenza 3 (PCR) Not Detected (NotDetected) Parainfluenza 4 (PCR) Not Detected (NotDetected) RSV (PCR) Not Detected (NotDetected) Entero/Rhino (PCR) Not Detected (NotDetected) Administered Medications Discontinued Medications Acetaminophen (Acetaminophen 500 Mg Tab) 1,000 mg PO NOW STA Stop: 05/27/24 21:15 Last Admin: 05/27/24 21:53 Dose: 1,000 mg Documented By: [facility] Imaging Data Radiologist's Impression: Chest X-Ray 05/27/24 19:11 Exam(s): XR CXR 1 VIEW EXAM: XR Chest, 1 View CLINICAL HISTORY: Sepsis. TECHNIQUE: Frontal view of the chest. COMPARISON: Chest radiograph 06/30/2023 FINDINGS: Lungs: Unremarkable. No consolidation. Pleural space: Unremarkable. No pneumothorax. Heart: Cardiomegaly. Mediastinum: Unremarkable. Normal mediastinal contour. Bones/joints: Unremarkable. No acute fracture. Tubes, lines and devices: There is a left cardiac defibrillator. IMPRESSION: Cardiomegaly. Electronically signed by: Lizbeth Martinez MD 05/27/24 22:30 PM Discharge Plan Visit Data Chief Complaint: Urinary Symptoms Stated Complaint: POSS UTI, ABD PAIN, DISORIENTATION, FEVER ED Provider: Nicho Rivera Discharge Problem: COVID-19, Acute confusion Forms Stand Alone Forms: My [facility] Prescriptions Prescriptions: No Action furosemide 40 mg tablet 40 mg PO QAM carvedilol 25 mg tablet 25 mg PO BID atorvastatin 10 mg tablet 10 mg PO QAM amlodipine 5 mg tablet 5 mg PO QAM losartan 100 mg tablet 100 mg PO QAM Xarelto 20 mg tablet 20 mg PO QAM multivitamin Tablet 1 tab PO DAILY cyanocobalamin (vitamin B-12) [Vitamin B-12] 1,000 mcg Tablet 1,000 mcg PO DAILY docusate sodium 100 mg Capsule 100 mg PO BID magnesium 200 mg Tablet 200 mg PO DAILY Referrals Referrals: Ana Maria Rivera MD [Primary Care Provider] -
--- NOTE | 2024-05-28 00:19 | History & Physical Report ---
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 Patient is hard of hearing. But able to give his history. Patient says today morning he was achy and having disorientation and he says he straight caths and was worried about UTI and came to the hospital and found to have COVID. As per son patient is disoriented but he was coherent and was ambulating okay. Patient had bad UTIs in the past got and son got worried and brought him to the hospital. He was also having mild fevers. Patient currently denies any headache. Denies chest pain or shortness of breath. Denies nausea. Denies abdominal pain. Normal bowel and bladder movements. Says he uses stool softener daily. Today his appetite was down, but it is coming back now. Hemodynamics are okay. Acute confusion Mostly from COVID UA is okay Currently back to baseline Gentle fluids Will monitor COVID COVID precautions Supportive care Mild elevation of troponin Mostly demand ischemia Follow serial enzymes Obstructive sleep apnea CPAP nightly Paroxysmal atrial fibrillation On Coreg and Xarelto Hypertension On amlodipine, Coreg, losartan and Lasix Will monitor Hyperlipidemia On statin Constipation On MiraLAX Atonic bladder Straight caths Intermittent complete heart block Status post pacemaker DVT prophylaxis On Xarelto Disposition Med/telemetry Full code History of Present Illness Chief Complaint: Confusion, COVID Primary Care Provider: Ana Maria Rivera MD 83-year-old male currently living at [facility] with past medical history significant for hypercholesterolemia, obstructive sleep apnea on CPAP, paroxysmal atrial fibrillation, hypertension, 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 Patient is hard of hearing. But able to give his history. Patient says today morning he was achy and having disorientation and he says he straight caths and was worried about UTI and came to the hospital and found to have COVID. As per son patient is disoriented but he was coherent and was ambulating okay. Patient had bad UTIs in the past got and son got worried and brought him to the hospital. He was also having mild fevers. Patient currently denies any headache. Denies chest pain or shortness of breath. Denies nausea. Denies abdominal pain. Normal bowel and bladder movements. Says he uses stool softener daily. Today his appetite was down, but it is coming back now. Hemodynamics are okay. Past medical history. As mentioned above Past surgical history. Bilateral knee arthroplasty. Inguinal hernia repair. Umbilical hernia repair. Social history. Currently being worked [employer]. Quit smoking 1959. Alcohol occasional. No drug use. Family history. Father had arthritis. Hypertension. Allergies Allergy/AdvReac Type Severity Reaction Status Date / Time No Known Allergies Allergy Verified 11/24/23 09:04 Home Medications Medication Instructions Recorded Confirmed Type amlodipine 5 mg tablet 5 mg PO DAILY 05/28/24 05/28/24 History atorvastatin 10 mg tablet 10 mg PO DAILY 05/28/24 05/28/24 History carvedilol 25 mg tablet 25 mg PO BID 05/28/24 05/28/24 History furosemide 40 mg tablet 40 mg PO DAILY 05/28/24 05/28/24 History losartan 100 mg tablet 100 mg PO DAILY 05/28/24 05/28/24 History polyethylene glycol 3350 17 gram 17 g PO DAILY 05/28/24 05/28/24 History oral powder packet (Miralax) rivaroxaban 20 mg tablet (Xarelto) 20 mg PO DAILY 05/28/24 05/28/24 History Past Med/Surg History Problem List (Updated 05/27/24 @ 23:11 by Nicho Rivera MD) Acute confusion (Acute) COVID-19 (Acute) AMS (altered mental status) (Acute) Fall (Acute) Hypokalemia (Acute) Leukocytosis (Acute) Altered mental status, unspecified Hypokalemia Pacemaker UTI (urinary tract infection) (Acute) Fall HTN (hypertension) LILLIAM (obstructive sleep apnea) HLD (hyperlipidemia) Paroxysmal atrial fibrillation Medical History (Updated 05/27/24 @ 23:11 by Nicho Rivera MD) History of tobacco use Atonic bladder Surgical History (Updated 06/30/23 @ 20:17 by Maria Antonia Clement PA-C) S/P repair of inguinal hernia History of bilateral knee replacement Social History Smoking Status: Former smoker Tobacco Type: Cigarettes Second Hand Exposure: No; Do You Dip or Chew Tobacco: No; Hx Alcohol Use: Yes Alcohol type: beer Hx Substance Use: No Preferred Language: Guyanese Communication Ability: Effective Communication Ability Comment: [facility] Disk Recoater Required: No Beliefs That Will Affect Care: None Current Living Situation: Personal Care Facility Other Information That Helps Us Care for You: No Feels Safe at Home: Yes Assistive Devices: Denture - Lower, Glasses and Hearing Aid - Bilateral Review of Systems Review of Systems: All systems reviewed & are unremarkable except as noted in HPI & below Physical Exam Physical Exam: General- Not in distress. Head- atraumatic Eyes- PERRL. ENT- oropharynx clear Neck- supple, no JVD. Lungs- clear to auscultation no wheezing or crackles. Heart- regular rhythm; no murmur, no gallop. Abdomen- normal bowel sounds, soft, nontender, no distension Extremities- no pretibial edema, no erythema seen Neuro- alert, oriented PERRL, no facial palsy; no dysarthria; moves extremities. Results & Data Results & Data Vital Signs (Past 12 Hours) Vital Signs Temp Pulse Pulse Resp BP BP Pulse Ox 05/27/24 23:28 60 05/27/24 23:00 60 18 111/57 L 05/27/24 22:45 63 19 116/61 05/27/24 22:30 60 21 121/61 05/27/24 22:18 69 19 126/64 05/27/24 22:00 65 26 H 124/59 L 05/27/24 21:17 66 24 126/62 95 05/27/24 20:41 65 20 129/62 95 05/27/24 20:32 66 12 109/67 94 05/27/24 20:15 67 21 123/73 93 05/27/24 19:45 68 19 135/70 95 05/27/24 19:29 75 20 143/76 H 97 05/27/24 19:27 65 05/27/24 19:27 70 17 96 05/27/24 19:26 37.6 C H 69 18 143/76 H 95 05/27/24 19:06 36.2 C L 69 18 146/75 H 95 O2 Del Method 05/27/24 23:28 05/27/24 23:00 05/27/24 22:45 05/27/24 22:30 05/27/24 22:18 05/27/24 22:00 05/27/24 21:17 05/27/24 20:41 05/27/24 20:32 05/27/24 20:15 05/27/24 19:45 05/27/24 19:29 05/27/24 19:27 05/27/24 19:27 Room Air 05/27/24 19:26 05/27/24 19:06 Room Air Diagnostic Findings Laboratory Results WBC 7.35 K/ul (4.8-10.8) 05/27/24 19:47 RBC 4.06 M/uL (4.70-6.10) L 05/27/24 19:47 Hgb 11.8 g/dl (14.0-18.0) L 05/27/24 19:47 Hct 35.3 % (42.0-52.0) L 05/27/24 19:47 MCV 86.9 fL (80.0-100.0) 05/27/24 19:47 MCH 29.1 pg (25.0-34.0) 05/27/24 19:47 MCHC 33.4 g/dL (32.0-36.0) 05/27/24 19:47 RDW Std Deviation 44.4 fL (36.4-46.3) 05/27/24 19:47 RDW Coeff of Lizzie 14.0 % (11.5-14.5) 05/27/24 19:47 Plt Count 164 K/uL (130-400) 05/27/24 19:47 MPV 10.7 fL (9.4-12.4) 05/27/24 19:47 Immature Gran % (Auto) 0.7 % 05/27/24 19:47 Neut % (Auto) 82.3 % 05/27/24 19:47 Lymph % (Auto) 6.0 % 05/27/24 19:47 [place] % (Auto) 10.7 % 05/27/24 19:47 Eos % (Auto) 0.0 % 05/27/24 19:47 Baso % (Auto) 0.3 % 05/27/24 19:47 Neut # (Auto) 6.05 K/uL (1.40-6.50) 05/27/24 19:47 Lymph # (Auto) 0.44 K/uL (1.20-3.40) L 05/27/24 19:47 [place] # (Auto) 0.79 K/uL (0.11-0.59) H 05/27/24 19:47 Eos # (Auto) 0.00 K/uL (0.00-0.50) 05/27/24 19:47 Baso # (Auto) 0.02 K/uL (0.00-0.20) 05/27/24 19:47 Immature Gran # (Auto) 0.05 K/uL (0.01-0.20) 05/27/24 19:47 Sodium 133 mmol/L (136-145) L 05/27/24 19:47 Potassium 3.7 mmol/L (3.5-5.1) 05/27/24 19:47 Chloride 100 mmol/L (98-107) 05/27/24 19:47 Carbon Dioxide 24 mmol/L (21-32) 05/27/24 19:47 Anion Gap 9 (3-11) 05/27/24 19:47 BUN 16 mg/dl (6-23) 05/27/24 19:47 Creatinine 0.82 mg/dl (0.6-1.4) 05/27/24 19:47 Est Cr Clr Drug Dosing 72.3 ml/min 05/27/24 19:47 eGFR 86.08 05/27/24 19:47 BUN/Creatinine Ratio 19.5 (10-20) 05/27/24 19:47 Glucose 161 mg/dl (70-99(Fasting)) H 05/27/24 19:47 Lactate 1.0 mmol/L (0.4-2.0) 05/27/24 19:47 Calcium 8.8 mg/dl (8.6-10.3) 05/27/24 19:47 Magnesium 1.9 mg/dl (1.7-2.4) 05/27/24 19:47 Total Bilirubin 1.9 mg/dl (0.2-1.0) H 05/27/24 19:47 Direct Bilirubin 0.2 mg/dl (0-0.2) 05/27/24 19:47 AST 26 U/L (13-39) 05/27/24 19:47 ALT 25 U/L (7-52) 05/27/24 19:47 Alkaline Phosphatase 55 U/L (34-104) 05/27/24 19:47 Troponin I High Sens 28.8 pg/ml (0-20) H 05/27/24 22:37 Total Protein 6.7 gm/dl (6.0-8.3) 05/27/24 19:47 Albumin 4.1 gm/dl (3.4-5.0) 05/27/24 19:47 Procalcitonin < 0.02 ng/ml (0-0.5) 05/27/24:47 Urine Color Yellow 05/27/24 19: Urine Appearance Clear (Clear) 05/27/24 19: Urine pH 7.0 (4.5-7.5) 05/27/24 19:25 Ur Specific [place] 1.017 (1.000-1.030) 05/27/24 19:25 Urine Protein Trace (Negative) H 05/27/24 19:25 Urine Glucose (UA) Negative (Negative) 05/27/24 19: Urine Ketones 1+ (Negative) H 05/27/24 19:25 Urine Blood Negative (Negative) 05/27/24: Urine Nitrite Negative (Negative) 05/27/24 19: Urine Bilirubin Negative (Negative) 05/27/24 19:25 Urine Urobilinogen Negative (Negative) 05/27/24 19:25 Ur Leukocyte Esterase Trace (Negative) H 05/27/24 19:25 Urine WBC (Auto) 6-10 /hpf (0-5) H 05/27/24 19:25 Urine RBC (Auto) 6-10 /hpf (0-2) H 05/27/24 19:25 U Hyaline Cast (Auto) 0-2 /lpf (0-2) 05/27/24 19:25 U Epithel Cells (Auto) 0-2 /hpf (0-2) 05/27/24 19:25 Urine Bacteria (Auto) None Seen (None Seen) 05/27/24 19:25 Adenovirus (PCR) Not Detected (NotDetected) 05/27/24 19:36 B. pertussis DNA (PCR) Not Detected (NotDetected) 05/27/24 19:36 B.parapertussis DNA PCR Not Detected (NotDetected) 05/27/24 19:36 C. pneumoniae DNA (PCR) Not Detected (NotDetected) 05/27/24 19:36 Coronavirus OC43 (PCR) Not Detected (NotDetected) 05/27/24 19:36 Coronavirus HKU1 (PCR) Not Detected (NotDetected) 05/27/24 19:36 Coronavirus 229E (PCR) Not Detected (NotDetected) 05/27/24 19:36 SARS-CoV-2 (PCR) DETECTED (NotDetected) A 05/27/24 19:36 Coronavirus NL63 (PCR) Not Detected (NotDetected) 05/27/24 19:36 Human Metapneumovir PCR Not Detected (NotDetected) 05/27/24 19:36 Influenza Type A (PCR) Not Detected (NotDetected) 05/27/24 19:36 Influenza Type B (PCR) Not Detected (NotDetected) 05/27/24 19:36 M. pneumoniae (PCR) Not Detected (NotDetected) 05/27/24 19:36 Parainfluenza 1 (PCR) Not Detected (NotDetected) 05/27/24 19:36 Parainfluenza 2 (PCR) Not Detected (NotDetected) 05/27/24 19:36 Parainfluenza 3 (PCR) Not Detected (NotDetected) 05/27/24 19:36 Parainfluenza 4 (PCR) Not Detected (NotDetected) 05/27/24 19:36 RSV (PCR) Not Detected (NotDetected) 05/27/24 19:36 Entero/Rhino (PCR) Not Detected (NotDetected) 05/27/24 19:36 Impressions Chest X-Ray 05/27/24 19:11 Exam(s): XR CXR 1 VIEW EXAM: XR Chest, 1 View CLINICAL HISTORY: Sepsis. TECHNIQUE: Frontal view of the chest. COMPARISON: Chest radiograph 06/30/2023 FINDINGS: Lungs: Unremarkable. No consolidation. Pleural space: Unremarkable. No pneumothorax. Heart: Cardiomegaly. Mediastinum: Unremarkable. Normal mediastinal contour. Bones/joints: Unremarkable. No acute fracture. Tubes, lines and devices: There is a left cardiac defibrillator. IMPRESSION: Cardiomegaly. Electronically signed by: Lizbeth Martinez MD 05/27/24 22:30 PM ECG Additional Comments: ECG. Atrial sensed ventricular paced rhythm with rate of 67. Code Status & VTE Plan VTE Prophylaxis Plan VTE Prophylaxis will be ordered: Yes
[2024-05-28] MEDS ORDERED: NITROGLYCERIN SL 0.4 MG/TAB TAB SL PRN (01:37)
[2024-05-28] MEDS: SODIUM CHLORIDE 0.9% 500 ML IV SCH (02:08)
--- NOTE | 2024-05-28 08:27 | Electrocardiogram Report ---
Test Reason : Blood Pressure : */* mmHG Vent. Rate : 67 BPM Atrial Rate : 67 BPM P-R Int : 128 ms QRS Dur : 162 ms QT Int : 440 ms P-R-T Axes : * 261 67 degrees QTcB Int : 464 ms Atrial-sensed ventricular-paced rhythm Biventricular pacemaker detected Abnormal ECG When compared with ECG of 30-Jun-2023 17:21, Vent. rate has decreased by 22 bpm Confirmed by Joseph Mcclain ([id number]) on 05/28/2024 8:26:37 AM Referred By: [facility] Confirmed By: Joseph Mcclain
[2024-05-28] MEDS: RIVAROXABAN 20 MG TAB PO SCH (08:45)
[2024-05-28] MEDS: amLODIPine BESYLATE 5 MG TAB PO SCH (08:45)
[2024-05-28] MEDS: carvediloL 25 MG TAB PO SCH (08:45)
[2024-05-28] MEDS: POLYETHYLENE (MIRALAX) 17 GM PACK PO SCH (08:45)
[2024-05-28] MEDS: ATORVASTATIN 10 MG TAB PO SCH (08:46)
[2024-05-28] MEDS: LOSARTAN POTASSIUM 50 MG TAB PO SCH (08:46)
[2024-05-28] MEDS: FUROSEMIDE 40 MG TAB PO SCH (08:46)
--- NOTE | 2024-05-28 14:37 | Communication Note ---
Date of Service: May 28, 2024 Patient seen and examined at bedside. He is alert oriented x 3; he reports that he was confused yesterday but does not feel confused anymore. He is saturating well on room air; urinalysis does not show infection. Chest x-ray does not show infiltrates On physical examination; Constitutional: Alert oriented x 3; not in distress. Respiratory: normal respiratory effort, lungs clear to auscultation, no wheeze, rales, rhonchi. Normal insp/exp effort, no accessory muscle use Cardiovascular: RRR, no murmur, no edema Vessels: no JVD or carotid bruit Chest: normal inspection of chest Abdomen: normal bowel sounds, soft, nontender, no hepatosplenomegaly Musculoskeletal: no cyanosis or clubbing, extremities motor strength 5/5 Skin: no rashes, warm and dry normal turgor Neurologic: PERRL, EOMI, accommodation nl, no face palsy, no dysarthria CN's II- XI intact bilaterally and moves all extremities Psychiatric: A+Ox3, euthymic affect Assessment/plan COVID-19 infection Delirium UTI ruled out Plan to observe overnight for recurrence of delirium. Supportive care for COVID-19 infection Continue home meds Full progress note to follow tomorrow Please note the above document was generated using voice recognition software. It may contain grammatical, syntax or spelling errors. Any formal questions or concerns about the content, text or information contained within the body of this dictation should be directly addressed to the provider for clarification
[2024-05-28] MEDS: OLANZapine ZYDIS 5 MG ORALLY DIS. TAB PO STA (22:15)
[2024-05-28] MEDS: ACETAMINOPHEN 325 MG TAB PO PRN (22:15)
--- OUTSIDE RECORDS SUMMARY | 2024-05-29 04:16 | External Medical Summary | Summary of Care ---
Author Name Unknown Organization [facility] Address [address] [place] [address] Phone [phone] Care Team Providers Care Nursing Information Systems Coordinator Name Role Phone Ana Maria Rivera MD Primary Care Provider [phone] Reason for Visit * Reason Comments Re-Check Encounter Details Date Type Department Care Team (Latest Contact Info) Description 04/10/2024 11:20 AM EDT Office Visit Family Practice [facility] [place] [address] [facility] [place] [place] [address] Ana Maria Rivera MD [address] [facility] [place] [address] Hand arthritis*; Chronic constipation; Hypertension goal BP (blood pressure) < 140/90; LILLIAM on CPAP; Paroxysmal atrial fibrillation (HCC); Mobitz type II atrioventricular block; Status post biventricular pacemaker; Pure hypercholesterolemia; Vaccine counseling Allergies No known active allergiesdocumented as of this encounter (statuses as of 04/10/2024) Medications Medication Sig Dispensed Refills Start Date End Date Status B-12 1000 MCG Oral Tablet Disintegrating Active Multi Vitamin Daily Oral Tablet Active Magnesium 200 MG Oral Tablet Active Atorvastatin Calcium 10 MG Oral Tablet [...] With food.. 90 Tablet 3 06/01/2023 Active Polyethylene Glycol 3350 17 GM Oral Packet (MiraLax) Take 1 Packet by mouth in the morning. Active amLODIPine Besylate 5 MG Oral Tablet (Norvasc) TAKE 1 TABLET BY MOUTH EVERY DAY IN THE MORNING 90 Tablet 3 04/04/2024 Active documented as of this encounter (statuses as of 04/10/2024) Active Problems Problem Noted Date Diagnosed Date Hand arthritis 04/10/2024 Other insomnia 10/08/2023 Chronic constipation 10/08/2023 Mobitz type II atrioventricular block 10/08/2023 Paroxysmal atrial fibrillation 04/08/2023 Status post biventricular pacemaker 04/08/2023 Atonic bladder 04/08/2023 Pure hypercholesterolemia 04/08/2023 LILLIAM on CPAP 04/08/2023 Lower extremity edema 04/08/2023 Hypertension goal BP (blood pressure) < 140/90 1 documented as of this encounter (statuses as of 04/10/2024) Immunizations Name Administration Dates Next Due COVID-19 mRNA, LNP-s, No Pre serve, 2-Dose Series (Moderna) 05/08/2021,08/16/2020,06/29/2020 COVID-19, MRNA-LNP, 24-25, P R, 30MCG/0.3ML, IM, 12YRS AND ABOVE ([facility]) 03/10/2024 Covid-19, Mrna, Lnp-s, Pf, B ivalent, 30 Mcg, IM, 12 yrs and above (Pfizer) 03/24/2022,09/26/2021 Pneumococcal Conjugate Vacc, 13 Valent (Prevnar) 07/26/2015 Pneumococcal Polysaccharide PPV23 (Pneumovax) 06/21/2010,05/22/2010 Pneumococcal Vaccine, Unspec ified Formulation 09/20/2011 Seasonal Influenza, High Dos e, Trivalent, PF, IM (Fluzone HD) 03/10/2024 Seasonal Influenza, Quadriva lent Hd (Fluzone Hd) 02/24/2023,03/24/2022,02/28/2021 TD - Tetanus/Diptheria (ADULT) 01/29/2010 Varicella Zoster Vaccine (Adult) 10/03/2010 documented as of this encounter Social History Tobacco Use Types Packs/Day Years Used Date Smoking Tobacco: Former Cigarettes Q uit: 1962 Smokeless Tobacco: Never Alcohol Use Standard Drinks/Week Comments Yes 0 (1 standard drink = 0.6 oz pure alcohol) occasional beer or glass of wine Hunger Vital Sign Answer Date Recorded Within the past 12 months, y ou worried that your food would run out before you got the money to buy more. Never true 07/05/19 24 Within the past 12 months, t he food you bought just didn't last and you didn't have money to get more. Never true 07/05/2023 Childcare Answer Date Recorded Do you feel overwhelmed with taking care of a child, family member or friend? No 07/05/2023 Does your family need help f inding childcare? (Household - for ages 0-17 years) Not on file 07/05/2023 Clothing Answer Date Recorded Have you been unable to get clothing when it was really needed? No 07/05/2023 Is your family able to get c lothes or diapers when needed? (Household - for ages 0-17 years) Not on file 07/05/2023 Personal Safety Answer Date Recorded Do you feel unsafe or have concerns for your saf ety? No 07/05/2023 Do you have concerns for you r family's safety? (Household - for ages 0-17 years) Not on file 07/05/2023 Utilities Answer Date Recorded Do you have trouble paying y our heating, water, or electric bill? No 07/05/2023 Is your family able to pay t he heat, water, or electric bill? (Household - for ages 0-17 years) Not on file 07/05/2023 Does your family have access to good internet? (Household - for ages 0-17 years) Not on file 07/05/2023 Employment Status Answer Date Recorded Are you unemployed or without regular income? No 07/05/2023 Does the household have a re gular source of income? (Household - for ages 0-17 years) Not on file 07/05/2023 Social Connections Answer Date Recorded How often do you feel lonely or isolated from th ose around you? Rarely 07/05/2023 Financial Resource Strain Answer Date R ecorded Do you have any trouble payi ng for your medications, or do you think you might in the future? No 07/05/2023 Does your family have troubl e paying for medicine? (Household - for ages 0-17 years) Not on file 07/05/2023 Transportation Needs Answer Date Record ed READ ONLY Do you have troubl e getting a ride to medical visits or work? Never True 07/05/2023 Does your family have a hard time getting a ride to doctors visits? (Household - for ages 0-17 years) Not on file 07/05/2023 Has lack of transportation k ept you from medical appointments, meetings, work, or from getting things needed for daily living? Check all that apply. (Adult - for ages 18 years and over) Not on file 07/05/2023 Do you (or your family) have trouble finding or paying for a ride (transportation)? (Household - for ages 0-17 years) Not on file 07/05/2023 Housing Stability Answer Date Recorded Do you currently live in a s helter or have no steady place to sleep at night? No 07/05/2023 READ ONLY Do you think you a re at risk of becoming homeless? No 07/05/2023 Does your family worry about paying for your home or becoming homeless? (Household - for ages 0-17 years) Not on file 0 07/05/2023 Are you homeless or worried that you might be in the future? (Adult - for ages 18 years and over) Not on file Are you (or your family) alan eless or worried that you might be in the future? (Household - for ages 0-17 years) Not on file Food Insecurity Answer Date Recorded Do you need food for this week? No 07/05/2023 Are you able to get enough f ood for your family? (Household - for ages 0-17 years) Not on file 07/05/2023 Does your family need food t his week? (Household - for ages 0-17 years) Not on file 07/05/2023 Do you always have enough fo od for your family? (Household - for ages 0-17 years) Not on file 07/05/2023 Sex and Gender Information Value Date Recorded Sex Assigned at Male 06/10/2023 5:39 PM EST Gender Identity Male 06/10/2023 5:39 PM EST Sexual Orientation Straight 06/10/2023 5: 39 PM EST Job Start Date Occupation Industry Not on file Not on file Not on file documented as of this encounter Progress Notes * Ana Maria Rivera MD - 04/10/2024 12:24 PM EDT Subjective Chief Complaint Patient presents with Re-Check Terry Beckham is a 83 year old male. Patient is unaccompanied. The following issues were addressedtoday: History of Present Illness The patient presents for follow-up. He expresses concerns about increasing difficulty gripping objects and associated pain in his fingers. Had noticed some deformity of his finger joints over the past few years. He suspects arthritis, a condition both his parents had. He is not currently taking anypain medication for this condition. In addition to his arthritis, the patient also reports ongoing issues with constipation. He has been taking Miralax as previously advised, and has also added olive oil and prunes to his diet, which he reports has led to improvement. The patient follows with cardiology for paroxysmal a-fib and AV block Mobitz type II with syncope s/p BiV ppm. Had recent generator change. He sees cardiology again in May. Review of Systems: See HPI Objective There were no vitals taken for this visit. Wt Readings from Last 3 Encounters: 03/06/24 86.9 kg (191 lb 9.6 oz) 01/07/24 87.7 kg (193 lb 6.4 oz) 11/16/23 86 kg (189 lb 8 oz) BP Readings from Last 3 Encounters: 01/07/24 138/76 11/16/23 138/80 10/26/23 128/80 General: Well-appearing, no acute distress Cardiovascular: Regular rate and rhythm, no murmur Respiratory: Good respiratory effort, breath sounds equal and clear to auscultation bilaterally Neurological: Alert and oriented, no focal deficits noted Psychiatric: Appropriate mood and affect Assessment and Plan 1. Hand arthritis Discussed PO versus topical options. Patient would like to trial Voltaren gel. Will get OTC. 2. Chronic constipation Well-controlled. Continue current regimen. 3. Hypertension goal BP (blood pressure) < 140/90 Well-controlled. Continue current medications. 4. LILLIAM on CPAP Stable. Compliant with CPAP. 5. Paroxysmal atrial fibrillation (HCC) Stable. Patient is in sinus rhythm today. Continue current medications. Follow- up with cardiology as scheduled. 6. Mobitz type II atrioventricular block 7. Status post biventricular pacemaker Follow-up with cardiology as scheduled. 8. Pure hypercholesterolemia Stable. 9. Vaccine counseling Recommended Tdap at pharmacy. Return in about 2 months (around 06/10/2024). This note was electronically signed by Ana Maria Rivera MD Text in this note was generated using an [employer] documentation service. I discussed the use of a device to record and summarize our discussion today. All persons present during the encounter consented to its use. documented in this encounter Nursing Notes * Sandhya Ward LPN - 04/10/2024 11:09 AM EDT Terry Hagerstaciapetty presents for 3 month recheck. Medications & HM reviewed. Found out some worrisome news on Wednesday and has been a little more emotions and stressed than usual but says he thinks he is doing okay documented in this encounter Plan of Treatment Upcoming Encounters Date Type Department Care Team (Late st Contact Info) Description 05/05/2024 10:40 AM EST Office Visit [facility] [address] [place] [phone] Lexie William DO [address] [place] [address] 05/23/2024 10:30 AM EST [facility] [address] [place] [address] Catherine Jimenez CRNP [address] [place] [address] 06/16/2024 11:20 AM EST [facility] [address] [facility] [place] [address] Ana Maria Rivera MD [address] [facility] [place] [address] 06/27/2024 9:00 AM EST Office Visit Urology, [facility] [address] [facility] [place] [address] Nikhil Hutchins MD [address] [place] [address] 09/04/2024 11:30 AM EDT [facility] [place] [address] Alli German PA-C [address] [facility] [place] [address] Health Maintenance Due Date Last Done Comments Depression Screening 1952 Albumin/Creatinine Ratio 1958 Adult Wellness Visit 2004 DTap/Tdap Vaccines (1 - Tdap) 01/30/2010 01/29/2010 Zoster Vaccines (2 of 3) 11/28/2010 10/03/2010 Pneumococcal Vaccine: 65+ Years Completed 07/26/2015, 06/21/2010, 05/22/2010 COVID-19 Vaccine Completed 03/10/2024, 09/2021, 09/26/2021, Additional history exists Influenza Vaccine (FLU shot) Completed , 02/24/2023, 03/24/2022, Additional history exists HPV (Gardasil) Vaccine Aged Out No lo nger eligible based on patient's age to complete this topic Hepatitis B Vaccine Aged Out No longe r eligible based on patient's age to complete this topic MENINGOCOCCAL (MENACTRA/MENVEO) Aged Out No longer eligible based on patient's age to complete this topic documented as of this encounter Medical Devices Not on filedocumented as of this encounter Visit Diagnoses Diagnosis Hand arthritis- Primary Unspecified arthropathy, hand Chronic constipation Unspecified constipation Hypertension goal BP (blood pressure) < 140/90 Unspecified essential hypertension LILLIAM on CPAP Obstructive sleep apnea (adult) (pediatric) Paroxysmal atrial fibrillation (HCC) Atrial fibrillation Mobitz type II atrioventricular block Mobitz (type) II atrioventricular block Status post biventricular pacemaker Cardiac pacemaker in situ Pure hypercholesterolemia Vaccine counseling documented in this encounter Care Teams Nursing Information Systems Coordinator Relationship Specialty Start Date End Date Ana Maria Rivera MD [address] [place] [address] PCP - General Family Medicine 04/08/23 documented as of this encounter
--- OUTSIDE RECORDS SUMMARY | 2024-05-29 04:16 | External Medical Summary | Summary of Care ---
Author Name Unknown Organization [facility] Address [address] [place] [address] Phone [phone] Care Team Providers Care Substation Inspector Name Role Phone Ana Maria Rivera MD Primary Care Provider Reason for Visit * Reason Comments Follow Up Return sleep. LILLIAM. C PAP. Had skin cancer on nose/face. So put it away for last mo. Recently talked to [facility]. And they helped him to restart it. Is seeing therapist for Cognitive behavior sleep insomnia. Encounter Details Date Type Department Care Team (Late st Contact Info) Description 05/05/2024 10:40 AM EST Office [facility] [phone] Lexie William DO [facility] [address] LILLIAM (obstructive sleep apnea)*; Insomnia, unspecified type Allergies No known active allergiesdocumented as of this encounter (statuses as of 05/05/2024) Medications B-12 1000 MCG Oral Tablet Disintegrating Active Multi Vitamin Daily Oral Tablet Active Magnesium 200 MG Oral Tablet Active Atorvastatin Calcium 10 MG Oral Tablet (Lipitor)Indications:Pur e hypercholesterolemia Take 1 Tablet by mouth in the morning. 90 Tablet 3 06/01/20 23 Active Xarelto 20 MG Oral Tablet Take 1 Tablet by mouth in the morning. With food.. 90 Tablet 3 06/01/20 23 Active Polyethylene Glycol 3350 17 GM Oral Packet (MiraLax) Take 1 Packet by mouth in the morning. Active amLODIPine Besylate 5 MG Oral Tablet (Norvasc) TAKE 1 TABLET BY MOUTH EVERY DAY IN THE MORNING 90 Tablet 3 04/04/20 24 Active Carvedilol 25 MG Oral Tablet (Coreg) TAKE 1 TABLET BY MOUTH IN THE MORNING AND 1 TABLET BEFORE BEDTIME. WITH FOOD.. 180 Tablet 3 04/21/20 24 Active Losartan Potassium 100 MG Oral Tablet (Cozaar)Indications:Hype rtension goal BP (blood pressure) < 140/90 TAKE 1 TABLET BY MOUTH EVERY DAY IN THE MORNING 90 Tablet 3 04/21/20 24 Active Furosemide 40 MG Oral Tablet (Lasix) TAKE 1 TABLET BY MOUTH EVERY DAY IN THE MORNING 90 Tablet 3 04/21/20 24 Active CPAP every night at bedtime. Active documented as of this encounter (statuses as of 05/05/2024) Active Problems Problem Noted Date Diagnosed Date Hand arthritis 04/10/2024 Other insomnia 10/08/2023 Chronic constipation 10/08/2023 Mobitz type II atrioventricular block 10/08/2023 Paroxysmal atrial fibrillation 04/08/2023 Status post biventricular pacemaker 04/08/2023 Atonic bladder 04/08/2023 Pure hypercholesterolemia 04/08/2023 LILLIAM on CPAP 04/08/2023 Lower extremity edema 04/08/2023 Hypertension goal BP (blood pressure) < 140/90 1 documented as of this encounter (statuses as of 05/05/2024) Immunizations Name Administration Dates Next Due COVID-19 mRNA, LNP-s, No Pre serve, 2-Dose Series ([facility]) 05/08/2021,08/16/2020,06/29/2020 COVID-19, MRNA-LNP, 24-25, P R, 30MCG/0.3ML, IM, 12YRS AND ABOVE ([facility]) 03/10/2024 Covid-19, Mrna, Lnp-s, Pf, B ivalent, [...] Assigned at Male 06/10/2023 5:39 PM EST Legal Sex Male 3:17 PM EDT Gender Identity Male 06/10/2023 5:39 PM EST Sexual Orientation Straight 06/10/2023 5: 39 PM EST documented as of this encounter Last Filed Vital Signs Vital Sign Reading Time Taken Comments Blood Pressure 120/80 05/05/2024 10:42 AM EST Pulse 85 05/05/2024 10:42 AM EST Temperature 36.6 C (97.8 F) 05/05/2024 10:[address] Respiratory Rate 16 05/05/2024 10:42 AM EST Oxygen Saturation 98% 05/05/2024 10:42 AM EST Inhaled Oxygen Concentration - - Weight 90.3 kg (199 lb) 05/05/2024 10:42 AM EST Height 182.9 cm (6') 05/05/2024 10:42 AM EST Body Mass Index 26.99 05/05/2024 10:42 AM EST documented in this encounter Progress Notes * Lexie William, DO - 05/05/2024 10:47 AM EST Sleep Medicine Follow-Up Clinic Note HISTORY: Mr. Terry Beckham is a 83 year old male w/ a pmh of atrial fibrillation, CHF w/ BiV pacemaker, andHTN who is in clinic today for follow up of Obstructive Sleep Apnea. Since Mr. Beckham was last seen, his PAP experience and sleep have both improved significantly. Hewas helped by a [facility] employee. He also met with [facility] who explained that Mr. Beckham didn't need touse his humidifier. He has been doing CBT-I. He also had skin cancer excised on his nose, so he took a break from PAP to allow for healing. He has also been pursuing counseling related to his grief after his 's passing. An order had been placed for a new PAP; however, his current was not >5 years old as of yet. Home Sleep Apnea Test (HSAT) 04/08/17: [facility] 6.2 O2 Markie 80 % <89% O2 4.7 mins Titration Polysomnogram 04/21/17: [facility] BMI 27.5 PAP 5-7 cmH20 7 cmH20 0.5 AHI (with REM sleep obtained) Min O2 90 % PLMI 38.2 Travel Screening Question 05/05/2024 9:31 AM EST - Filed by Patient Do you have any of the following new or worsening symptoms? None of these Have you recently been in contact with someone who was sick? No / Unsure Nora Sleepiness Scale Question 05/05/2024 10:41 AM EST - Filed by Charline Beal LPN What is the chance you will doze off in the following situation? Sitting and reading Moderate chance of dozing Watching TV No chance of dozing Sitting inactive in a public place, such as a theater or meeting No chance of dozing As a passenger in a car for an hour without a break Slight chance of dozing Lying down to rest in the afternoon when circumstances permit Moderate chance of dozing When sitting and talking to someone No chance of dozing When sitting quietly after lunch without alcohol Slight chance of dozing In a car, while stopped for a few minutes in traffic No chance of dozing Score (range: 0 - 24) 6 PAP Compliance: Report date: 04/04/24 to 05/03/24 % total days used: 97% % days used > 4 hours: 93% Average hours a day: 7 hours 9 mins Large leak: 18.7 AHI: 2.9/hr 95% pressure: 16.6 cmH20 Equipment: DME Provider is [facility] 10-18 cmH20 Patient Active Problem List Diagnosis Paroxysmal atrial fibrillation (HCC) Status post biventricular pacemaker Atonic bladder Pure hypercholesterolemia LILLIAM on CPAP Lower extremity edema Hypertension goal BP (blood pressure) < 140/90 Other insomnia Chronic constipation Mobitz type II atrioventricular block handler arthritis Current Outpatient Medications Medication Sig Dispense Refill CPAP every night at bedtime. Carvedilol 25 MG Oral Tablet (Coreg) TAKE 1 TABLET BY MOUTH IN THE MORNING AND 1 TABLET BEFORE BEDTIME. WITH FOOD.. 180 Tablet 3 Furosemide 40 MG Oral Tablet (Lasix) TAKE 1 TABLET BY MOUTH EVERY DAY IN THE MORNING 90 Tablet 3 Losartan Potassium 100 MG Oral Tablet (Cozaar) TAKE 1 TABLET BY MOUTH EVERY DAY IN THE MORNING 90 Tablet 3 amLODIPine Besylate 5 MG Oral Tablet (Norvasc) TAKE 1 TABLET BY MOUTH EVERY DAY IN THE MORNING 90 Tablet 3 Polyethylene Glycol 3350 17 GM Oral Packet (MiraLax) Take 1 Packet by mouth in the morning. Atorvastatin Calcium 10 MG Oral Tablet (Lipitor) Take 1 Tablet by mouth in the morning. 90 Tablet 3 Xarelto 20 MG Oral Tablet Take 1 Tablet by mouth in the morning. With food.. 90 Tablet 3 B-12 1000 MCG Oral Tablet Disintegrating Magnesium 200 MG Oral Tablet Multi Vitamin Daily Oral Tablet No current facility-administered medications for this visit. PHYSICAL EXAM: BP 120/80 | Pulse 85 | Temp 36.6 C (97.8 F) (Tympanic) | Resp 16 | Ht 1.829 m (6') | Wt 90.3 kg(199 lb) | SpO2 98% | BMI 26.99 kg/m | BSA 2.14 m Constitutional: Alert, oriented in no acute distress Skin: no markings on face where mask fits Chest: Normal respiratory effort at rest Neuro: Normal speech and comprehension Psych: Appropriate mood and affect ASSESSMENT/PLAN: Obstructive Sleep Apnea Chronic insomnia - improved with CBT-I Encouraged continued use of PAP every night, all night and for naps. Pt would prefer not to make adjustments at this point Continue CBT-I Avoid driving, operating heavy machinery or engaging in any activity that requires full alertness if feeling sleepy, drowsy or otherwise impaired. Follow-up with Sleep Medicine in 1 year. Lexie William DO I spent a total of 30-39 minutes (exact time 32 mins) on the date of service in preparation, delivery, and documentation of the care provided to Terry Beckham excluding any time spent in the performance of separately billed services. documented in this encounter Nursing Notes * Charline Beal LPN - 05/05/2024 10:43 AM EST Chief Complaint Patient presents with Follow Up Return sleep. LILLIAM. CPAP. Had skin cancer on nose/face. So put it away for last mo. Recently talked to [facility]. And they helped him to restart it. Is seeing therapist for Cognitive behavior sleep insomnia. Travel Screening Question 05/05/2024 9:31 AM EST - Filed by Patient Do you have any of the following new or worsening symptoms? None of these Have you recently been in contact with someone who was sick? No / Unsure Nora Sleepiness Scale Question 05/05/2024 10:41 AM EST - Filed by Charline Beal LPN What is the chance you will doze off in the following situation? Sitting and reading Moderate chance of dozing Watching TV No chance of dozing Sitting inactive in a public place, such as a theater or meeting No chance of dozing As a passenger in a car for an hour without a break Slight chance of dozing Lying down to rest in the afternoon when circumstances permit Moderate chance of dozing When sitting and talking to someone No chance of dozing When sitting quietly after lunch without alcohol Slight chance of dozing In a car, while stopped for a few minutes in traffic No chance of dozing Score (range: 0 - 24) 6 documented in this encounter Plan of Treatment Upcoming Encounters Date Type Department Care Team (Late st Contact Info) Description 05/23/2024 10:30 AM EST Office Visit Cardiology, [facility] 132 [facility] [place] [address] Catherine Jimenez CRNP 400 [facility] [place] [address] 06/16/2024 11:20 AM EST Office Visit Family Practice [facility] 200 [facility] [place] [address] Ana Maria Rivera MD [address] [place] [address] 06/27/2024 9:00 AM EST Office Visit Urology, [facility] 132 [facility] [place] [address] Nikhil Hutchins MD [address] [place] [phone] 09/04/2024 11:30 AM EDT Office Visit Otolaryngology [facility] [address] [place] [address] Alli German PA-C [address] [place] [address] 05/08/2025 10:40 AM EST Office Visit Sleep Disorders Ctr [facility] [address] [place] [phone] Lexie William DO [address] [place] [address] Health Maintenance Due Date Last Done Comments Depression Screening 1950 Albumin/Creatinine Ratio 1958 Adult Wellness Visit 2004 DTap/Tdap Vaccines (1 - Tdap) 01/30/2010 01/29/2010 Zoster Vaccines (2 of 3) 11/28/2010 10/03/2010 COVID-19 Vaccine ( season) 2024 03/10/2024, 03/24/2022, 09/26/2021, Additional history exists Pneumococcal Vaccine: 65+ Years Completed 07/26/2015, 06/21/2010, 05/22/2010 Influenza Vaccine (FLU shot) Completed , 02/24/2023, [...] type documented in this encounter Care Teams Substation Inspector Relationship Specialty Start Date End Date Ana Maria Rivera MD [address] [place] [address] PCP - General Family Medicine 04/08/23 documented as of this encounter"
--- OUTSIDE RECORDS SUMMARY | 2024-05-29 04:16 | External Medical Summary | Summary of Care ---
Author Name Unknown Organization [facility] Address [address] [place] [address] Phone [phone] Care Team Providers Care Coal Loader Name Role Phone Ana Maria Rivera MD Primary Care Provider [phone] Reason for Visit * Reason Comments NEW PATIENT Cerumen Impaction * Evaluate & Treat - Unlimited Visits (Within 30 days (routine)) - Authorized Specialty Diagnoses / Procedures Referred By Contwade t Referred To Contact Otolaryngology Diagnoses Bilateral impacted cerumen Ana Maria Rivera MD [address] [place] [address] Referral ID Status Reason Start Date Expiration Date Visits Requested Visits Authorized [id number] Authorized Specialty Services Required 01/07/2024 [id number] Encounter Details Date Type Department Care Team (Late st Contact Info) Description 03/06/2024 10:30 AM EDT Office Visit Otolaryngology [facility] 132 [place] [address] Jb Truong DO [address] [facility] [place] [address] Bilateral impacted cerumen* Allergies No known active allergiesdocumented as of this encounter (statuses as of 03/06/2024) Medications Medication Sig Dispensed Refills Start Date End Date Status B-12 1000 MCG Oral Tablet Disintegrating Active Multi Vitamin Daily Oral Tablet Active Magnesium 200 MG Oral Tablet Active amLODIPine Besylate 5 MG Oral Tablet [...] Packet by mouth in the morning. Active documented as of this encounter (statuses as of 03/06/2024) Active Problems Problem Noted Date Diagnosed Date Other insomnia 10/08/2023 Chronic constipation 10/08/2023 Mobitz type II atrioventricular block 10/08/2023 Paroxysmal atrial fibrillation 04/08/2023 Status post biventricular pacemaker 04/08/2023 Atonic bladder 04/08/2023 Pure hypercholesterolemia 04/08/2023 LILLIAM on CPAP 04/08/2023 Lower extremity edema 04/08/2023 Hypertension goal BP (blood pressure) < 140/90 1 documented as of this encounter (statuses as of 03/06/2024) Immunizations Name Administration Dates Next Due COVID-19 [...] Sign Reading Time Taken Comments Blood Pressure - - Pulse - - Temperature 36.4 C (97.6 F) 03/06/2024 9:52 AM ED T Respiratory Rate - - Oxygen Saturation - - Inhaled Oxygen Concentration - - Weight 86.9 kg (191 lb 9.6 oz) 03/06/2024 9:52 A M EDT Height 182.9 cm (6' 0.01") 03/06/2024 9:52 AM ED T Body Mass Index 25.98 03/06/2024 9:52 AM EDT documented in this encounter Progress Notes * Jb Truong, DO - 03/06/2024 10:03 AM EDT 03/06/2024 HISTORY OF PRESENT ILLNESS This 83 year old YO male is seen at the request of Ana Maria Rivera MD for the evaluation of lateral aural fullness and obstruction. Patient states he wears hearing aids bilaterally and gets recurrent cerumen impactions. Recently moved to the area from [place]. Denies any otologic surgery in the past. Problem List Patient Active Problem List Diagnosis Paroxysmal atrial fibrillation (HCC) Status post biventricular pacemaker Atonic bladder Pure hypercholesterolemia LILLIAM on CPAP Lower extremity edema Hypertension goal BP (blood pressure) < 140/90 Other insomnia Chronic constipation Mobitz type II atrioventricular block Past Medical History: Diagnosis Date Melanoma (HCC) Past Surgical History: Procedure Laterality Date ARTHROPLASTY KNEE TOTAL Bilateral REPAIR INITIAL INGUINAL HERNIA REDUCIBLE AGE 5 OR MORE REPAIR UMBILICAL LESION, SMALL Medications Current Outpatient Medications Medication Sig Dispense Refill B-12 1000 MCG Oral Tablet Disintegrating Multi Vitamin Daily Oral Tablet Magnesium 200 MG Oral Tablet amLODIPine Besylate 5 MG Oral Tablet (Norvasc) Take 1 Tablet by mouth in the morning. 90 Tablet 3 Atorvastatin Calcium 10 MG Oral Tablet (Lipitor) Take 1 Tablet by mouth in the morning. 90 Tablet 3 Carvedilol 25 MG Oral Tablet (Coreg) Take 1 Tablet by mouth in the morning and 1 Tablet before bedtime. With food.. 180 Tablet 3 Furosemide 40 MG Oral Tablet (Lasix) Take 1 Tablet by mouth in the morning. 90 Tablet 3 Losartan Potassium 100 MG Oral Tablet (Cozaar) Take 1 Tablet by mouth in the morning. 90 Tablet 3 Xarelto 20 MG Oral Tablet Take 1 Tablet by mouth in the morning. With food.. 90 Tablet 3 Polyethylene Glycol 3350 17 GM Oral Packet (MiraLax) Take 1 Packet by mouth in the morning. No current facility-administered medications for this visit. Allergies Review of patient's allergies indicates: No Known Allergies Family History Family History Problem Relation Name Age of Onset Hypertension Father Rafy Beckham Arthritis Father Rafy Beckham Social History Social History Tobacco Use Smoking status: Former Current packs/day: 0.00 Types: Cigarettes Quit date: 1959 Years since quittin.7 Smokeless tobacco: Never Substance Use Topics Alcohol use: Yes Comment: occasional beer or glass of wine Vaping/E-Cigarette Use Vaping/E-Cigarette Use Never User Vaping/E-Cigarette Substances Vaping/E-Cigarette Devices Review of Systems Negative for constitutional, eyes, cardiac, pulmonary, hepatic, renal, digestive, hematologic, epileptic, syncopal, musculo-skeletal, mental health, integumentary, hypertensive, lipid, arthritic, diabetic, thyroid, or neurologic disorders (except as listed in the PMH and Problem List). Physical Examination: Temp 36.4 C (97.6 F) (Tympanic) | Ht 1.829 m (6' 0.01") | Wt 86.9 kg (191 lb 9.6 oz) | BMI 25.98 kg/m | BSA 2.1 m PHYSICAL EXAM General: This is a healthy appearing male who appears his stated age. The patient is alert and appropriately verbally conversant without hoarseness. Face: The face was inspected and no cutaneous masses or lesions were visualized. There was no erythema or edema noted. Facial movement was symmetric without weakness. Eyes: Extra-ocular muscle function was intact. No nystagmus was observed. Pupils were equal. Cranial Nerves: Cranial nerves II, III, IV, and were noted to be intact via extra-ocular muscle movement testing. Cranial nerve VII noted to be intact and symmetric by facial movement. Nose: Examination of the nose revealed no masses, polyps, mucopus, or other lesion. The nasal septum was non-obstructing. The turbinates were without abnormality. Ears: Examination of the ears revealed that the auricles were normally formed with no lesions. The external auditory canals were cleaned of any obstructing cerumen. The tympanic membranes were intactand freely mobile to pneumatoscopy. There are no significant retraction pockets. There is no inflammation visualized. No effusions are seen. Procedure: Cerumen removal Attention directed to the right ear. Under shalini-microscopic guidance the impacted cerumen was removed with a suction atraumatically. The tympanic membrane was intact and the middle ear was healthy appearing. The same procedure was performed on the other side. Patient tolerated the procedure well. Procedure: In order to assess ears in further detail, the patient was brought to the microscope room and the ears were evaluated under the operating microscope. The findings are as noted in the above physical exam. Assessment: 83-year-old male with bilateral cerumen impactions. Plan: Cerumen removed as above. Follow-up in 6 months with 1 of the physician assistants in the office for routine cerumen removal. I spent a total of 20 minutes on the date of service in preparation, delivery, and documentation ofthe care provided to the above patient, excluding any time spent on the performance of any procedures or separately billable services. Jb Truong DO, [facility] Screen Tacker, Department of Otolaryngology-Head and Neck Surgery [facility], [place] 03/06/2024 10:05 AM documented in this encounter Nursing Notes * Meeta Vaughn LPN - 03/06/2024 9:50 AM EDT Pt presents today for cerumen removal as well as getting established with a new ENT. Pt denies having any issues, reports moving to the area about 1 yr ago and would like to get established. documented in this encounter Plan of Treatment Upcoming Encounters Date Type Department Care Team (Late st Contact Info) Description 03/24/2024 2:45 PM EDT Office Visit MOHS Surgery [facility] [address] [place] [address] Anita White MD 200 [facility] [place] [address] 04/10/2024 11:20 AM EDT Office Visit Family Practice [facility] [address] [place] [address] Ana Maria Rivera MD 200 [facility] [place] [address] 05/05/2024 10:40 AM EST Office Visit Sleep Disorders Ctr [facility] 132 [facility] [place] [phone] Lexie William DO 132 [facility] [place] [address] 05/23/2024 10:30 AM EST Office Visit Cardiology, [facility] 132 [facility] [place] [address] Catherine Jimenez CRNP 400 [facility] [place] [address] 06/27/2024 9:00 AM EST Office Visit Urology, [facility] 132 [facility] [place] [address] Nikhil Hutchins MD [address] [place] [address] 09/04/2024 11:30 AM EDT Office Visit Otol[facility]ology [facility] 132 [facility] [place] [address] Alli German PA-C 132 [facility] [place] [address] Scheduled Referrals Name Type Priority Associated Diagnoses Order Schedule ADULT/PEDS OTOLARYNGOLOGY REFERRAL OP Referral Within 30 days (routine) Bilateral impacted cerumen Ordered: 01/07/2024 Health Maintenance Due Date Last Done Comments Depression Screening 1950 Albumin/Creatinine Ratio 1958 Adult Wellness Visit 2004 DTap/Tdap Vaccines (1 - Tdap) 01/30/2010 01/29/2010 Zoster Vaccines (2 of 3) 11/28/2010 10/03/2010 Influenza Vaccine (FLU shot) (#1) 2024 02/24/2023, 03/24/2022, 02/28/2021 Pneumococcal Vaccine: 65+ Years Completed 07/26/2015, 06/21/2010, 05/22/2010 COVID-19 Vaccine Completed 02/19/2024, 09/2021, 09/26/2021, Additional history exists HPV (Gardasil) Vaccine Aged [...] as of this encounter Visit Diagnoses Diagnosis Bilateral impacted cerumen- Primary Impacted cerumen documented in this encounter Care Teams Coal Loader Relationship Specialty Start Date End Date Ana Maria Rivera MD 200 [facility] [address] PCP - General Family Medicine 04/08/23 documented as of this encounter
--- OUTSIDE RECORDS SUMMARY | 2024-05-29 04:16 | External Medical Summary | Summary of Care ---
Author Name Unknown Organization [facility] Address [address] [place] [address] Phone [phone] Care Team Providers Care Steam Drier Operator Name Role Phone Ana Maria Rivera MD Primary Care Provider [phone] Reason for Visit * Reason Comments Follow Up Rm 17 Encounter Details Date Type Department Care Team (Latest Contact Info) Description 05/23/2024 10:30 AM EST Office Visit Cardiology, [facility] 132 [facility] [place] [address] Catherine Jimenez CRNP [address] [place], [place] [id number] Paroxysmal atrial fibrillation (HCC)*; Mobitz type II atrioventricular block; HTN, goal below 130/80; Status post biventricular pacemaker Allergies No known active allergiesdocumented as of this encounter (statuses as of 05/24/2024) Medications B-12 1000 MCG Oral Tablet Disintegrating Active Multi Vitamin Daily Oral Tablet Active Magnesium 200 MG Oral Tablet Active Atorvastatin Calcium 10 MG Oral Tablet (Lipitor)Indications:Pu re hypercholesterolemia Take 1 Tablet by mouth in the morning. 90 Tablet 3 023 Active Polyethylene Glycol 3350 17 GM Oral Packet (MiraLax) Take 1 Packet by mouth in the morning. Active amLODIPine Besylate 5 MG Oral Tablet (Norvasc) TAKE 1 TABLET BY MOUTH EVERY DAY IN THE MORNING 90 Tablet 3 024 Active Carvedilol 25 MG Oral Tablet (Coreg) TAKE 1 TABLET BY MOUTH IN THE MORNING AND 1 TABLET BEFORE BEDTIME. WITH FOOD.. 180 Tablet 3 024 Active Losartan Potassium 100 MG Oral Tablet (Cozaar)Indications:Hyp ertension goal BP (blood pressure) < 140/90 TAKE 1 TABLET BY MOUTH EVERY DAY IN THE MORNING 90 Tablet 3 024 Active Furosemide 40 MG Oral Tablet (Lasix) TAKE 1 TABLET BY MOUTH EVERY DAY IN THE MORNING 90 Tablet 3 024 Active CPAP every night at bedtime. Active Xarelto 20 MG Oral Tablet Take 1 Tablet by mouth in the morning. With food.. 90 Tablet 3 023 2023 Discontinued documented as of this encounter (statuses as of 05/24/2024) Active Problems Problem Noted Date Diagnosed Date Hand arthritis 04/10/2024 Other insomnia 10/08/2023 Chronic constipation 10/08/2023 Mobitz type II atrioventricular block 10/08/2023 Paroxysmal atrial fibrillation 04/08/2023 Status post biventricular pacemaker 04/08/2023 Atonic bladder 04/08/2023 Pure hypercholesterolemia 04/08/2023 LILLIAM on CPAP 04/08/2023 Lower extremity edema 04/08/2023 Hypertension goal BP (blood pressure) < 140/90 1 documented as of this encounter (statuses as of 05/24/2024) Immunizations Name Administration Dates Next Due COVID-19 mRNA, LNP-s, No Pre serve, 2-Dose Series ([employer]) 05/08/2021,08/16/2020,06/29/2020 COVID-19, MRNA-LNP, 24-25, P R, 30MCG/0.3ML, IM, 12YRS AND ABOVE ([facility]) 03/10/2024 Covid-19, Mrna, Lnp-s, Pf, B ivalent, [...] Sign Reading Time Taken Comments Blood Pressure 128/64 05/23/2024 10:44 AM EST Pulse 60 05/23/2024 10:44 AM EST Temperature - - Respiratory Rate 16 05/23/2024 10:44 AM EST Oxygen Saturation - - Inhaled Oxygen Concentration - - Weight 89.4 kg (197 lb) 05/23/2024 10:44 AM EST Height 180.3 cm (5' 11") 05/23/2024 10:44 AM EST Body Mass Index 27.48 05/23/2024 10:44 AM EST documented in this encounter Progress Notes * Shaunna Ngo DO - 05/24/2024 6:23 PM EST I have reviewed the advanced practitioner's documentation on the date of service referenced in note, and I agree with, and take responsibility for the plan of care. Pt returns for routine 6 month EP f/u due to pAF on xarelto and coreg with intermittent CHB s/p ppm Pt has been doing well since last seen in the office Continue with routine device checks No change in cardiac medications EP f/u 1 year Shaunna Ngo DO Department of Cardiology [facility] [place] [address] documented in this encounter Nursing Notes * Mary Ann Denise NRCMA - 05/23/2024 10:45 AM EST Patient was identified by name and date of . Examination Room: 17 Name: Terry Beckham Date of : (1940). Reason for Visit: ret visit Interim Hospitalization(s): no Problems/Concerns: none Chest Pain/SOB: none reported Medications reviewed and are up to date via: [place] [facility] is a way you can talk to your provider online through e-mail. Would you like to sign up? I can activate it for you? ALREADY ACTIVE Do you have video visit capabilities (email and smart phone)? No. Would you be interested in 6 or 12 return visit being scheduled as a video visit if the provider approves? No Patient was instructed to not get up on the exam table/exam chair until directed and assisted by their provider; patient is to remain seated in the chair/ wheelchair/ exam table/ exam chair for fall prevention and safety reasons. Patient is aware to have assistance to step down off exam table/exam chair with personnel. Patient voiced full comprehension of instructions. RADHA Nguyễn documented in this encounter Plan of Treatment Upcoming Encounters Date Type Department Care Team (Late st Contact Info) Description 06/16/2024 11:20 AM EST Office Visit Family Practice [facility] 200 [facility] [place] [address] Ana Maria Rivera MD 200 [facility] [address] 06/27/2024 9:00 AM EST Office Visit Urology, [facility] [address] [place] [address] Nikhil Hutchins MD [address] [place] [address] 09/04/2024 11:30 AM EDT Office Visit Otolaryngology [facility] [address] [place] [address] Alli German PA-C [address] [place] [address] 05/08/2025 10:40 AM EST Office Visit [facility] Disorders Ctr [facility] [place] [phone] Lexie William DO 132 [facility] [place] [address] 05/29/2025 10:30 AM EST Office Visit Cardiology, [facility] [place] 132 [facility] [place] [address] Catherine Jimenez CRNP 400 [facility] [place] [address] Health Maintenance Due Date Last Done Comments [...] as of this encounter Visit Diagnoses Diagnosis Paroxysmal atrial fibrillation (HCC)- Primary Atrial fibrillation Mobitz type II atrioventricular block Mobitz (type) II atrioventricular block HTN, goal below 130/80 Unspecified essential hypertension Status post biventricular pacemaker Cardiac pacemaker in situ documented in this encounter Care Teams Steam Drier Operator Relationship Specialty Start Date End Date Ana Maria Rivera MD [address] [place] [address] PCP - General Family Medicine 04/08/23 documented as of this encounter
--- OUTSIDE RECORDS SUMMARY | 2024-05-29 04:16 | External Medical Summary | Summary of Care ---
Author Name Unknown Organization [facility] Address [address] [place] [address] Phone [phone] Care Team Providers Care Pottery Machine Operator Name Role Phone Ana Maria Rivera MD Primary Care Provider [phone] Reason for Visit * Reason Comments eRx-Medication Refill Encounter Details Date Type Department Care Team (Late st Contact Info) Description 05/23/2024 Refill Cardiology, [facility] 132 [facility] [place] [address] Catherine Jimenez CRNP [address] [place], [place] [phone] Allergies No known active allergiesdocumented as of [...] DAY IN THE MORNING 90 Tablet 3 Active Furosemide 40 MG Oral Tablet (Lasix) TAKE 1 TABLET BY MOUTH EVERY DAY IN THE MORNING 90 Tablet 3 Active CPAP every night at bedtime. Active Xarelto 20 MG Oral Tablet TAKE 1 TABLET BY MOUTH IN THE MORNING. WITH FOOD.. 90 Tablet 3 Active Xarelto 20 MG Oral Tablet [...] P R, 30MCG/0.3ML, IM, 12YRS AND ABOVE ([facility]) 03/10/2024 Covid-19, Mrna, Lnp-s, Pf, B ivalent, [...] PM EST documented as of this encounter Miscellaneous Notes * Telephone Encounter - Ji Clark [facility] - 05/24/2024 2:18 PM EST Signed Prescriptions: Disp Refills Xarelto 20 MG Oral Tablet 90 Tab*3 Sig: TAKE 1 TABLET BY MOUTH IN THE MORNING. WITH FOOD..Authorizing Provider: CATHERINE JIMENEZ User: JI CLARK * Telephone Encounter - Preeti Green CPhT - 05/23/2024 3:02 PM EST Pt calling to check on status of xarelto. Caller can be reached at [phone]. Thank you, Preeti Green CPhT Medical Doctor II [facility] 05/23/2024,3:03 PM documented in this encounter Plan of Treatment Upcoming Encounters Date Type Department Care Team (Late st Contact Info) Description 06/16/2024 11:20 AM EST Office Visit Family Practice [facility] [place] [address] [place] [address] Ana Maria Rivera MD [address] [place] [address] 06/27/2024 9:00 AM EST Office Visit Urology, [facility] 132 [facility] [place] [address] Nikhil Hutchins MD [address] [place] [address] 09/04/2024 11:30 AM EDT Office Visit Otolaryngology [facility] 132 [facility] [place] [address] Alli German PA-C 132 [facility] [place] [address] 05/08/2025 10:40 AM EST Office [facility] 132 [facility] [place] [phone] Lexie William DO 132 [facility] [place] [address] 05/29/2025 10:30 AM EST Office Visit Cardiology, [facility] 132 [facility] [place] [address] Catherine Jimenez CRNP 400 [facility] [place] [phone] Health Maintenance Due Date Last Done Comments [...] filedocumented as of this encounter Care Teams Pottery Machine Operator Relationship Specialty Start Date End Date Ana Maria Rivera MD 200 [facility] [place] [address] PCP - General Family Medicine 04/08/23 documented as of this encounter
--- OUTSIDE RECORDS SUMMARY | 2024-05-29 04:16 | External Medical Summary | Summary of Care ---
Author Name Unknown Organization [facility] Address [address] [place] [address] Phone [phone] Care Team Providers Care Supervisor Carbon Electrodes Name Role Phone Ana Maria Rivera MD Primary Care Provider [phone] Reason for Visit * Reason Comments Follow Up Encounter Details Date Type Department Care Team (Late st Contact Info) Description 03/24/2024 2:45 PM EDT Office Visit [facility] [address] [facility] [place] [address] Anita White MD [address] [place] [address] Scar*; Visit for wound check Allergies No known active allergiesdocumented as of this encounter (statuses as of 03/28/2024) Medications Medication Sig Dispensed Refills Start Date [...] as of this encounter (statuses as of 03/28/2024) Active Problems Problem Noted Date Diagnosed Date Other insomnia 10/08/2023 Chronic constipation 10/08/2023 Mobitz type II atrioventricular block 10/08/2023 Paroxysmal atrial fibrillation 04/08/2023 Status post biventricular pacemaker 04/08/2023 Atonic bladder 04/08/2023 Pure hypercholesterolemia 04/08/2023 LILLIAM on CPAP 04/08/2023 Lower extremity edema 04/08/2023 Hypertension goal BP (blood pressure) < 140/90 1 documented as of this encounter (statuses as of 03/28/2024) Immunizations Name Administration Dates Next Due COVID-19 [...] No 07/05/2023 Does the household have a [facility] care services[facility] source of income? (Household - for ages [...] as of this encounter Progress Notes * Anita White MD - 03/27/2024 8:40 PM EDT SUBJECTIVE: HPI: Terry Beckham is a 83 year old male s/p Mohs micrographic surgery of a basal cell carcinoma on the right nasal sidewall/right ala repaired with a cartilage graft on 01/24/2024. Surgical site on nose healing well. EXAM Early pink scar with small eroded area at right ala/nasal sidewall (almost completely healed) PLAN Surgical site on right ala/nasal sidewall almost completely healed. Continue Vaseline to surgical site for approximately one more week/until completely healed. Follow-up: as needed The patient was encouraged to contact me with any further questions or concerns. Anita White MD Associate, Mohs Micrographic Surgery & Dermatologic Surgery 03/24/2024 documented in this encounter Plan of Treatment Upcoming Encounters Date Type Department Care Team (Late st Contact Info) Description 04/10/2024 11:20 AM EDT Office Visit Family Practice [facility] 200 [facility] [place] [address] Ana Maria Rivera MD 200 [facility] [place] [address] 05/05/2024 10:40 AM EST Office Visit Sleep Disorders Ctr [facility] 132 [facility] [place] [phone] Lexie William DO 132 [facility] [place] [address] 05/23/2024 10:30 AM EST Office Visit Cardiology, [facility] 132 [facility] [place] [address] Catherine Jimenez CRNP [address] [place] [address] [place] [address] 06/27/2024 9:00 AM EST Office Visit Urology, [facility] [address] [place] [address] Nikhil Hutchins MD [address] [place] [address] 09/04/2024 11:30 AM EDT Office Visit Otolaryngology [facility] [address] [place] [address] Alli German PA-C [address] [place] [address] Health Maintenance Due Date Last Done Comments Depression Screening 1952 Albumin/Creatinine Ratio 1958 Adult Wellness Visit 2004 DTap/Tdap Vaccines (1 - Tdap) 01/30/2010 01/29/2010 Zoster Vaccines (2 of 3) 11/28/2010 10/03/2010 COVID-19 Vaccine ( season) 2024 03/24/2022, 09/26/2021, 05/08/2021, Additional history exists Pneumococcal [...] as of this encounter Visit Diagnoses Diagnosis Scar- Primary Scar condition and fibrosis of skin Visit for wound check Encounter for other specified aftercare documented in this encounter Care Teams Supervisor Carbon Electrodes Relationship Specialty Start Date End Date Ana Maria Rivera MD [address] [place] [address] PCP - General Family Medicine 04/08/23 documented as of this encounter
--- OUTSIDE RECORDS SUMMARY | 2024-05-29 04:16 | External Medical Summary | Summary of Care ---
Author Name Unknown Organization [facility] Address [address] [place] [address] Phone [phone] Care Team Providers Care Recycling Program Manager Name Role Phone Ana Maria Rivera MD Primary Care Provider [phone] Reason for Visit * Reason Comments eRx-Medication Refill Encounter Details Date Type Department Care Team (Late st Contact Info) Description 04/02/2024 Refill Family Practice [facility] 200 [place] [address] Ana Maria Rivera MD 200 [place] [address] Allergies No known active allergiesdocumented as of this encounter (statuses as of 04/04/2024) Medications Medication Sig Dispensed Refills Start Date End Date Status B-12 1000 MCG Oral Tablet Disintegrating Act joe Multi Vitamin Daily Oral Tablet Active Magnesium [...] rtension goal BP (blood pressure) < 140/90 Take 1 Tablet by mouth in the morning. 90 Tablet 3 3 Active Xarelto 20 MG Oral Tablet Take 1 Tablet by mouth in the morning. With food.. 90 Tablet 3 3 Active Polyethylene Glycol 3350 17 GM Oral Packet (MiraLax) Take 1 Packet by mouth in the morning. Active amLODIPine Besylate 5 MG Oral Tablet (Norvasc) TAKE 1 TABLET BY MOUTH EVERY DAY IN THE MORNING 90 Tablet 3 4 Active amLODIPine Besylate 5 MG Oral Tablet (Norvasc) Take 1 Tablet by mouth in the morning. 90 Tablet 3 3 024 Discontinued documented as of this encounter (statuses as of 04/04/2024) Active Problems Problem Noted Date Diagnosed Date Other insomnia 10/08/2023 Chronic constipation 10/08/2023 Mobitz type II atrioventricular block 10/08/2023 Paroxysmal atrial fibrillation 04/08/2023 Status post biventricular pacemaker 04/08/2023 Atonic bladder 04/08/2023 Pure hypercholesterolemia 04/08/2023 LILLIAM on CPAP 04/08/2023 Lower extremity edema 04/08/2023 Hypertension goal BP (blood pressure) < 140/90 1 documented as of this encounter (statuses as of 04/04/2024) Immunizations Name Administration Dates Next Due COVID-19 [...] encounter Miscellaneous Notes * Telephone Encounter - Sneha Layne [facility] - 04/04/2024 7:49 AM EDTSigned Prescriptions: Disp Refills amLODIPine Besylate 5 MG Oral Tablet (Norv*90 Tab*3 Sig: TAKE 1 TABLET BY MOUTH EVERY DAY IN THE MORNINGAuthorizing Provider: Lauren RIVERA User: SNEHA LAYNE documented in this encounter Plan of Treatment Upcoming Encounters Date Type Department Care Team (Late st Contact Info) Description 04/10/2024 11:20 AM EDT Office Visit Family Practice [facility] 200 [facility] [place] [place] [address] Ana Maria Rivera MD 200 [facility] [place] [address] 05/05/2024 10:40 AM EST Office Visit [facility] Disorders Ctr [facility] 132 [facility] [place] [phone] Lexie William DO 132 [facility] [place] [address] 05/23/2024 10:30 AM EST Office Visit Cardiology, [facility] 132 [facility] [place] [address] Catherine Jimenez CRNP [address] [place] [address] [place] [address] 06/27/2024 9:00 AM EST Office Visit Urology, [facility] 132 [place] [address] Nikhil Hutchins MD [address] [place] [address] 09/04/2024 11:30 AM EDT Office Visit Otolaryngology [facility] 132 [place] [address] Alli German PA-C 132 [place] [address] Health Maintenance Due Date Last Done Comments [...] filedocumented as of this encounter Care Teams Recycling Program Manager Relationship Specialty Start Date End Date Ana Maria Rivera MD [address] [place] [address] PCP - General Family Medicine 04/08/23 documented as of this encounter
--- OUTSIDE RECORDS SUMMARY | 2024-05-29 04:16 | External Medical Summary | Summary of Care ---
Author Name Unknown Organization [facility] Address [address] [place] [address] Phone [phone] Care Team Providers Care Animal Control Officer Name Role Phone Ana Maria Rivera MD Primary Care Provider [phone] Reason for Visit * Reason Comments eRx-Medication Refill Encounter Details Date Type Department Care Team (Late st Contact Info) Description 04/20/2024 Refill Cardiology, [facility] 132 [facility] [place] [address] Shaunna Ngo, [address] [facility] [place] [id number] Hypertension goal BP (blood pressure) < 140/90 Allergies No known active allergiesdocumented as of this encounter (statuses as of 04/21/2024) Medications Medication Sig Dispensed Refills Start Date [...] THE MORNING 90 Tablet 3 4 Active Carvedilol 25 MG Oral Tablet (Coreg) TAKE 1 TABLET BY MOUTH IN THE MORNING AND 1 TABLET BEFORE BEDTIME. WITH FOOD.. 180 Tablet 3 4 Active Losartan Potassium 100 MG Oral Tablet (Cozaar)Indications:Hype rtension goal BP (blood pressure) < 140/90 TAKE 1 TABLET BY MOUTH EVERY DAY IN THE MORNING 90 Tablet 3 4 Active Furosemide 40 MG Oral Tablet (Lasix) TAKE 1 TABLET BY MOUTH EVERY DAY IN THE MORNING 90 Tablet 3 4 Active Carvedilol 25 MG Oral Tablet (Coreg) Take 1 Tablet by mouth in the morning and 1 Tablet before bedtime. With food.. 180 Tablet 3 3 024 Discontinued Furosemide 40 MG Oral Tablet (Lasix) Take 1 Tablet by mouth in the morning. 90 Tablet 3 3 024 Discontinued Losartan Potassium 100 MG Oral Tablet (Cozaar)Indications:Hype rtension goal BP (blood pressure) < 140/90 Take 1 Tablet by mouth in the morning. 90 Tablet 3 3 024 Discontinued documented as of this encounter (statuses as of 04/21/2024) Active Problems Problem Noted Date Diagnosed Date Hand arthritis 04/10/2024 Other insomnia 10/08/2023 Chronic constipation 10/08/2023 Mobitz type II atrioventricular block 10/08/2023 Paroxysmal atrial fibrillation 04/08/2023 Status post biventricular pacemaker 04/08/2023 Atonic bladder 04/08/2023 Pure hypercholesterolemia 04/08/2023 LILLIAM on CPAP 04/08/2023 Lower extremity edema 04/08/2023 Hypertension goal BP (blood pressure) < 140/90 1 documented as of this encounter (statuses as of 04/21/2024) Immunizations Name Administration Dates Next Due COVID-19 mRNA, LNP-s, No Pre serve, 2-Dose Series ([facility]) 05/08/2021,08/16/2020,06/29/2020 COVID-19, MRNA-LNP, 24-25, P R, 30MCG/0.3ML, IM, 12YRS AND ABOVE ([facility]) 03/10/2024 Covid-19, Mrna, Lnp-s, Pf, B ivalent, [...] encounter Miscellaneous Notes * Telephone Encounter - Kaylene Jarvis RPh - 04/21/2024 8:48 AM EDTSigned Prescriptions: Disp Refills Carvedilol 25 MG Oral Tablet (Coreg) 180 Ta*3 Sig: TAKE 1 TABLETBY MOUTH IN THE MORNING AND 1 TABLET BEFORE BEDTIME. WITH FOOD..Authorizing Provider: SONG JIMENEZ User: KAYLENE JARVIS Losartan Potassium 100 MG Oral Tablet (Coz*90 Tab*3 Sig:TAKE 1 TABLET BY MOUTH EVERY DAY IN THE MORNINGAuthorizing Provider: SONG JIMENEZ IELLAOrdering User: KAYLENE JARVIS Furosemide 40 MG Oral Tablet (Lasix) 90 Tab*3 Sig: TAKE 1 TABLETBY MOUTH EVERY DAY IN THE MORNINGAuthorizing Provider: SONG JIMENEZ User: KAYLENE JARVIS documented in this encounter Plan of Treatment Upcoming Encounters Date Type Department Care Team (Late st Contact Info) Description 05/05/2024 10:40 AM EST Office Visit Sleep Disorders Ctr [facility] [address] [place] [phone] Lexie William DO 132 [place] [address] 05/23/2024 10:30 AM EST Office Visit Cardiology, [facility] [address] [place] [address] Song Jimenez CRNP 400 [facility] [place] [address] 06/16/2024 11:20 AM EST Office Visit Family Practice [facility] 200 [facility] [place] [address] Ana Maria Rivera MD 200 [facility] [place] [address] 06/27/2024 9:00 AM EST Office Visit Urology, [facility] [address] [place] [address] Nikhil Hutchins MD [address] [place] [address] 09/04/2024 11:30 AM EDT Office Visit Otolaryngology [facility] 132 [place] [address] Alli German PA-C [address] [place] [address] Health Maintenance Due Date Last Done Comments [...] as of this encounter Visit Diagnoses Diagnosis Hypertension goal BP (blood pressure) < 140/90 Unspecified essential hypertension documented in this encounter Care Teams Animal Control Officer Relationship Specialty Start Date End Date Ana Maria Rivera MD [address] [place] [address] PCP - General Family Medicine 04/08/23 documented as of this encounter
--- OUTSIDE RECORDS SUMMARY | 2024-05-29 04:16 | External Medical Summary | Summary of Care ---
Author Name Unknown Organization [facility] Address [address] [place] [address] Phone [phone] Care Team Providers Care Cupola Operator Name Role Phone Ana Maria Rivera MD Primary Care Provider [phone] Reason for Visit * Reason Comments Wound Recheck S/P Mohs R nasal miguelito ewall/R nasal ala Encounter Details Date Type Department Care Team (Late st Contact Info) Description 03/03/2024 2:45 PM EDT Office Visit MOHS Surgery [facility] [address] [place] [address] Anita White MD [address] [place] [address] Visit for wound check* Allergies No known active allergiesdocumented as of this encounter (statuses as of 03/07/2024) Medications Medication Sig Dispensed Refills Start Date [...] as of this encounter (statuses as of 03/07/2024) Active Problems Problem Noted Date Diagnosed Date Other insomnia 10/08/2023 Chronic constipation 10/08/2023 Mobitz type II atrioventricular block 10/08/2023 Paroxysmal atrial fibrillation 04/08/2023 Status post biventricular pacemaker 04/08/2023 Atonic bladder 04/08/2023 Pure hypercholesterolemia 04/08/2023 LILLIAM on CPAP 04/08/2023 Lower extremity edema 04/08/2023 Hypertension goal BP (blood pressure) < 140/90 1 documented as of this encounter (statuses as of 03/07/2024) Immunizations Name Administration Dates Next Due COVID-19 mRNA, LNP-s, No Pre serve, 2-Dose Series (Moderna) 05/08/2021,08/16/2020,06/29/2020 Covid-19, Mrna, Lnp-s, Pf, B ivalent, 30 Mcg, IM, 12 yrs and above ([employer]) 03/24/2022,09/26/2021 Pneumococcal Conjugate Vacc, 13 Valent (Prevnar) [...] Progress Notes * Anita White MD - 03/07/2024 7:42 PM EDT SUBJECTIVE: HPI: Terry Beckham is a 83 year old male s/p Mohs micrographic surgery of a basal cell carcinoma on the right nasal sidewall/right ala repaired with a cartilage graft on 01/24/2024. Surgical site on nose healing well. Surgical site on right ear healed. Here today with son. EXAM Granulating surgical wound on right ala/nasal sidewall healing well Well healed scar on right antihelix PLAN Surgical site on right ala cleaned and re-dressed. Continue Vaseline and bandage to surgical site on right nose until completely healed. No further wound care needed for right ear. Follow-up: 3-4 weeks The patient was encouraged to contact me with any further questions or concerns. Anita White MD Associate, Mohs Micrographic Surgery & Dermatologic Surgery 03/03/2024 documented in this encounter Nursing Notes * Marlene Hernandez LPN - 03/03/2024 2:43 PM EDT Chief Complaint Patient presents with Wound Recheck S/P Mohs R nasal sidewall/R nasal ala documented in this encounter Plan of Treatment Upcoming Encounters Date Type Department Care Team (Late st Contact Info) Description 03/24/2024 2:45 PM EDT Office Visit MOHS Surgery [facility] 200 [facility], [place] [address] Anita White MD [address] [place] [address] [place] [address] 04/10/2024 11:20 AM EDT Office Visit Family Practice [address] [place] [address] Ana Maria Rivera MD [address] [place], [place] [address] [address] 05/05/2024 10:40 AM EST Office Visit Sleep Disorders Ctr [facility] 132 [facility] [place] [phone] Lexie William DO 132 [facility] [place] [address] 05/23/2024 10:30 AM EST Office Visit Cardiology, [facility] 132 [facility] [place] [address] Catherine Jimenez CRNP 400 [facility] [place] [address] 06/27/2024 9:00 AM EST Office Visit Urology, [facility] 132 [facility] [place] [address] Nikhil Hutchins MD [address] [place] [address] 09/04/2024 11:30 AM EDT Office Visit Otolaryngology [facility] 132 [facility] [place] [address] Alli German PA-C 132 [facility] [place] [address] Health Maintenance Due Date Last Done Comments [...] as of this encounter Visit Diagnoses Diagnosis Visit for wound check- Primary Encounter for other specified aftercare documented in this encounter Care Teams Cupola Operator Relationship Specialty Start Date End Date Ana Maria Rivera MD [address] [place] [address] PCP - General Family Medicine 04/08/23 documented as of this encounter
--- OUTSIDE RECORDS SUMMARY | 2024-05-29 04:17 | External Medical Summary | Summary of Care ---
Author Name Unknown Organization [facility] Address [address] [place] [address] Phone [phone] Care Team Providers Care Telecommunication Systems Designer Name Role Phone Ana Maria Rivera MD Primary Care Provider [phone] Reason for Visit * Reason Onset Date Comments Advice 12/10/2023 Encounter Details Date Type Department Care Team (Late st Contact Info) Description 12/10/2023 Telephone Urology [facility] [address] [place], [place] [phone] Services, Scheduling [address] [place] [address] Advice Allergies No known active allergiesdocumented as of this encounter (statuses as of 12/10/2023) Medications Medication Sig Dispensed Refills Start Date [...] as of this encounter (statuses as of 12/10/2023) Active Problems Problem Noted Date Diagnosed Date Other insomnia 10/08/2023 Chronic constipation 10/08/2023 Mobitz type II atrioventricular block 10/08/2023 Paroxysmal atrial fibrillation 04/08/2023 Status post biventricular pacemaker 04/08/2023 Atonic bladder 04/08/2023 Pure hypercholesterolemia 04/08/2023 LILLIAM on CPAP 04/08/2023 Lower extremity edema 04/08/2023 Hypertension goal BP (blood pressure) < 140/90 1 documented as of this encounter (statuses as of 12/10/2023) Immunizations Name Administration Dates Next Due COVID-19 mRNA, LNP-s, No Pre serve, 2-Dose Series (Moderna) 05/08/2021,08/16/2020,06/29/2020 Covid-19, Mrna, Lnp-s, Pf, B ivalent, 30 Mcg, IM, 12 yrs and above ([employer]) 03/24/2022,09/26/2021 Pneumococcal Conjugate Vacc, 13 Valent (Prevnar) [...] encounter Miscellaneous Notes * Telephone Encounter - Kemi Green OSA - 12/10/2023 11:09 AM EDT Patient wanted to let Adrianna know he is going to be mailing records directly to the clinic from his former urologist they should there next week documented in this encounter Plan of Treatment Upcoming Encounters Date Type Department Care Team (Late st Contact Info) Description 12/24/2023 11:00 AM EDT Office Visit Urology [facility] [address] [place] [address] Adrianna Galvez PA-C [address] [place] [address] [place] [address] 12/27/2023 2:15 PM EDT Office Visit Dermatology [facility] 200 [facility] [place] [address] Yusef Browne MD 200 [facility] [place] [address] 01/07/2024 11:20 AM EDT Office Visit Family Practice [facility] 200 [facility] [place] [address] Ana Maria Rivera MD 200 [facility] [place] [address] 05/05/2024 10:40 AM EST Office Visit Sleep Disorders Ctr [facility] [address] [place] [phone] Lexie William DO [address] [place] [address] 05/23/2024 10:30 AM EST [facility] [address] [place] [address] Catherine Jimenez CRNP 400 [facility] [place] [address] Health Maintenance Due Date Last Done Comments Depression Screening 1952 Albumin/Creatinine Ratio 1956 DTaP,Tdap,and Td Vaccines (1 - Tdap) 01/30/2010 01/29/2010 Zoster Vaccines (2 of 3) 11/28/2010 10/03/2010 COVID-19 Vaccine (7 - 2022- season) 2023 07/27/2023, 03/24/2022, 09/26/2021, Additional history exists Pneumococcal Vaccine: [...] filedocumented as of this encounter Care Teams Telecommunication Systems Designer Relationship Specialty Start Date End Date Ana Maria Rivera MD [address] [place] [address] PCP - General Family Medicine 04/08/23 documented as of this encounter
--- OUTSIDE RECORDS SUMMARY | 2024-05-29 04:17 | External Medical Summary | Summary of Care ---
Author Name Unknown Organization [facility] Address [address] [place] [address] Phone [phone] Care Team Providers Care Carpet Finishing Supervisor Name Role Phone Loida Rivera MD Primary Care Provider [phone] Reason for Visit * Reason Comments Follow Up 6 months, spot L nos e Encounter Details Date Type Department Care Team (Late st Contact Info) Description 12/27/2023 2:15 PM EDT Office Visit Dermatology [facility] 200 [facility] [place] [address] Yusef Browne MD 200 [facility] [place] [address] Actinic skin damage*; Actinic keratosis; Hx of basal cell carcinoma; Hx of malignant melanoma; Seborrheic keratoses; Skin neoplasm; Scar Allergies No known active allergiesdocumented as of this encounter (statuses as of 12/27/2023) Medications Medication Sig Dispensed Refills Start Date [...] as of this encounter (statuses as of 12/27/2023) Active Problems Problem Noted Date Diagnosed Date Other insomnia 10/08/2023 Chronic constipation 10/08/2023 Mobitz type II atrioventricular block 10/08/2023 Paroxysmal atrial fibrillation 04/08/2023 Status post biventricular pacemaker 04/08/2023 Atonic bladder 04/08/2023 Pure hypercholesterolemia 04/08/2023 LILLIAM on CPAP 04/08/2023 Lower extremity edema 04/08/2023 Hypertension goal BP (blood pressure) < 140/90 1 documented as of this encounter (statuses as of 12/27/2023) Immunizations Name Administration Dates Next Due COVID-19 [...] Progress Notes * Yusef Browne MD - 12/27/2023 2:21 PM EDT SUBJECTIVE: Chief Complaint: Chief Complaint Patient presents with Follow Up 6 months, spot L nose HPI: Terry Beckham is a 83 year old male seen for a full skin check for history of NMSC and possibly melanoma (treated in [place], no records) Derm Hx 2022 - BCC, right parasternal back BCCs on shoulders, face Melanomas were treated at [facility] OBJECTIVE: GEN: Elderly but, alert, no distress, appears oriented, pleasant, and cooperative SKIN: Detailed exam of hair, face, trunk, arms, and legs A. Right nasal sidewall - 5mm crusted and eroded pink papule - bcc Right shoulder x2, right upper back x2, face x8, left chest x1 - 13 gritty erythematous macules/papules Well-healed scar(s) at primary [...] brown macules and papules without significant irregularity. ASSESSMENT/PLAN: Skin neoplasm(s) - Shave biopsy of the following lesion(s) A. Right nasal sidewall - 5mm crusted and eroded pink papule - bcc Procedure - Tangential biopsy of skin Biopsy by shave was recommended for the [...] pathology. Patient instructed in routine post-op care. Long discussion regarding Mohs vs curettage. Will only biopsy today, patient would like to proceed with Mohs if needed Actinic keratosis -The diagnosis and malignant potential of the lesion was explained. Treatment options were reviewedincluding cryotherapy, topical medications, and observation. All questions were addressed. Procedure - Cryotherapy (Premalignant Destruction) -The patient would like to proceed with cryosurgery;Cryosurgery explained to the patient, consent obtained, patient, site and procedure verified, and then cryotherapy was performed with Liquid Nitrogen via cryo spray unit to 13 lesions. Location noted in physical exam. Post [...] new or changing lesions or other concerns. F/U - 6 months. Must be 30 min complex appointment Yusef Browne MD Ref: LOIDA RIVERA[[id number]] 200 [facility] [place] [address] (office) [phone] (fax) PCP: LOIDA RIVERA [address] [place] [address] [phone] documented in this encounter Nursing Notes * Linda Mckeon LPN - 12/27/2023 2:02 PM EDT Patient identified by full name and date of . Chief Complaint Patient presents with Follow Up 6 months, spot L nose documented in this encounter Plan of Treatment Upcoming Encounters Date Type Department Care Team (Late st Contact Info) Description 01/07/2024 11:20 AM EDT Office Visit [facility] [address] [place] [address] Loida Rivera MD 200 [facility] [place] [address] 05/05/2024 10:40 AM EST Office Visit Sleep Disorders Ctr [facility] [address] [facility] [place] [phone] Lexie William DO [address] [place] [address] 05/23/2024 10:30 AM EST Office Visit Cardiology, [facility] [address] [place] [address] Catherine Jimenez CRNP [address] [place] [address] 06/27/2024 9:00 AM EST Office Visit Urology, [facility] [address] [place] [address] Nikhil Hutchins MD [address] [place] [address] Pending Results Name Type Priority Associated Diagnoses Date /Time SURGICAL PATHOLOGY Pathology Routine Skin neoplasm 12/27/2023 2:35 PM EDT Health Maintenance Due Date Last Done Comments Depression Screening 1950 Albumin/Creatinine Ratio 1956 DTaP,Tdap,and Td Vaccines (1 - Tdap) 01/30/2010 01/29/2010 Zoster Vaccines (2 of 3) 11/28/2010 10/03/2010 COVID-19 Vaccine ( season) 2023 07/27/2023, 03/24/2022, 09/26/2021, Additional history exists Influenza Vaccine (FLU shot) (#1) 2024 02/24/2023, 03/24/2022, 02/28/2021 Pneumococcal Vaccine: 65+ Years Completed 07/26/2015, 06/21/2010, 05/22/2010 HPV (Gardasil) Vaccine Aged Out No lo [...] as of this encounter Visit Diagnoses Diagnosis Actinic skin damage- Primary Other dermatitis due to solar radiation Actinic keratosis Hx of basal cell carcinoma Personal history of other malignant neoplasm of skin Hx of malignant melanoma Personal history of malignant melanoma of skin Seborrheic keratoses Skin neoplasm Neoplasm of unspecified nature of bone, soft tissue, and skin Scar Scar condition and fibrosis of skin documented in this encounter Care Teams Carpet Finishing Supervisor Relationship Specialty Start Date End Date Loida Rivera MD [address] [place] [address] PCP - General Family Medicine 04/08/23 documented as of this encounter
--- OUTSIDE RECORDS SUMMARY | 2024-05-29 04:17 | External Medical Summary | Summary of Care ---
Author Name Unknown Organization [facility] Address [address] [place] [address] Phone [phone] Care Team Providers Care Digital Advertising Analyst Name Role Phone Ana Maria Rivera MD Primary Care Provider [phone] Reason for Referral * Evaluate & Treat - Unlimited Visits (Within 30 days (routine)) - Authorized Specialty Diagnoses / Procedures Referred By Contac t Referred To Contact Dermatology Diagnoses Basal cell carcinoma (BCC) of skin of nose Yusef Browne MD 200 [facility] [place] [address] Referral ID Status Reason Start Date Expiration Date Visits Requested Visits Authorized [id number] Authorized Specialty Services Required 12/28/2023 1 1 Question Answer Referral Priority Within 30 days (routine) Are you referring the patient for Mohs Surgery and have a current positive skin cancer biopsy result? Yes Where should this appointment be scheduled? [facility] Type of Procedure MOHS Surgery Comments A. Skin, right nasal sidewall, shave: Basal cell carcinoma, at least nodular type Encounter Details Date Type Department Care Team (Late st Contact Info) Description 12/28/2023 Telephone Dermatology [facility] [facility] [place] [address] [place] [address] [address] Yusef Browne MD [address] [place] [address] [address] Allergies No known active allergiesdocumented as of this encounter (statuses as of 12/29/2023) Medications Medication Sig Dispensed Refills Start Date [...] as of this encounter (statuses as of 12/29/2023) Active Problems Problem Noted Date Diagnosed Date Other insomnia 10/08/2023 Chronic constipation 10/08/2023 Mobitz type II atrioventricular block 10/08/2023 Paroxysmal atrial fibrillation 04/08/2023 Status post biventricular pacemaker 04/08/2023 Atonic bladder 04/08/2023 Pure hypercholesterolemia 04/08/2023 LILLIAM on CPAP 04/08/2023 Lower extremity edema 04/08/2023 Hypertension goal BP (blood pressure) < 140/90 1 documented as of this encounter (statuses as of 12/29/2023) Immunizations Name Administration Dates Next Due COVID-19 mRNA, LNP-s, No Pre serve, 2-Dose Series (Moderna) 05/08/2021,08/16/2020,06/29/2020 Covid-19, Mrna, Lnp-s, Pf, B ivalent, 30 Mcg, IM, 12 yrs and above ([employer]) 03/24/2022,09/26/2021 Pneumococcal Conjugate Vacc, 13 Valent (Prevnar) [...] encounter Miscellaneous Notes * Telephone Encounter - Sherry Gonzalez OSA - 12/29/2023 11:45 AM EDT Called patient and scheduled Mohs surgery for January [address] White and added him to the wait list. Also mailed patient Mohs info packet. documented in this encounter Plan of Treatment Upcoming Encounters Date Type Department Care Team (Late st Contact Info) Description 01/07/2024 11:20 AM EDT Office Visit Family Practice [facility] 200 [facility] [place] [address] Ana Maria Rivera MD 200 [facility] [address] 01/21/2024 8:30 AM EDT Office Visit MOHS Surgery [facility] [place] 200 [facility], [place] [address] Anita White MD 200 [facility] [place] [address] 05/05/2024 10:40 AM EST Office Visit Sleep Disorders Ctr Steph[facility] [place] [address] [place] [phone] Lexie William DO [address] [place] [address] 05/23/2024 10:30 AM EST Office Visit Cardiology, [facility] [address] [facility] [place] [address] Catherine Jimenez CRNP 400 [facility] [place] [address] 06/27/2024 9:00 AM EST Office Visit Urology, [facility] [address] [facility] [place] [address] Nikhil Hutchins MD [address] [facility] [place] [address] Scheduled Referrals Name Type Priority Associated Diagnoses Orde r Schedule MOHS SURGERY REFERRAL OP Referral Within 30 days (routine) Basal cell carcinoma (BCC) of skin of nose Ordered: 12/28/2023 Health Maintenance Due Date Last Done Comments [...] as of this encounter Visit Diagnoses Diagnosis Basal cell carcinoma (BCC) of skin of nose- Primary documented in this encounter Care Teams Digital Advertising Analyst Relationship Specialty Start Date End Date Ana Maria Rivera MD [address] [place] [address] PCP - General Family Medicine 04/08/23 documented as of this encounter
--- OUTSIDE RECORDS SUMMARY | 2024-05-29 04:17 | External Medical Summary | Summary of Care ---
Author Name Unknown Organization [facility] Address [address] [place] [address] Phone [phone] Care Team Providers Care Custom Bow Maker Name Role Phone Ana Maria Rivera MD Primary Care Provider [phone] Reason for Visit * Reason Comments Mohs Surgery Right Nasal Sidewall * Evaluate & Treat - Unlimited Visits (Within 30 days (routine)) - Closed Specialty Diagnoses / Procedures Referred By Contac t Referred To Contact Dermatology Diagnoses Basal cell carcinoma (BCC) of skin of nose Yusef Browne MD [address] [place] [id number] Referral ID Status Reason Start Date Expiration Date V isits Requested Visits Authorized [id number] Closed Specialty Services Required 12/28/2023 1 1 Encounter Details Date Type Department Care Team (Late st Contact Info) Description 01/21/2024 8:30 AM EDT Office Visit MOHS Surgery [facility] [address] [place] [address] Anita White MD [address] [place] [id number] Basal cell carcinoma (BCC) of right side of nose* Allergies No known active allergiesdocumented as of this encounter (statuses as of 01/24/2024) Medications Medication Sig Dispensed Refills Start Date [...] Packet by mouth in the morning. Active Hospital, Clinic, or Other Facility Administered Medication Ordered Dose Route Frequency Start Date End Date Status Cephalexin (Keflex) cap 2,000 mgIndications:Basal cell carcinoma (BCC) of right side of nose 2000 mg OR ONCE 01/21/2024 01/21/2024 Ended documented as of this encounter (statuses as of 01/24/2024) Active Problems Problem Noted Date Diagnosed Date Other insomnia 10/08/2023 Chronic constipation 10/08/2023 Mobitz type II atrioventricular block 10/08/2023 Paroxysmal atrial fibrillation 04/08/2023 Status post biventricular pacemaker 04/08/2023 Atonic bladder 04/08/2023 Pure hypercholesterolemia 04/08/2023 LILLIAM on CPAP 04/08/2023 Lower extremity edema 04/08/2023 Hypertension goal BP (blood pressure) < 140/90 1 documented as of this encounter (statuses as of 01/24/2024) Immunizations Name Administration Dates Next Due COVID-19 mRNA, LNP-s, No Pre serve, 2-Dose Series (Moderna) 05/08/2021,08/16/2020,06/29/2020 Covid-19, Mrna, Lnp-s, Pf, B ivalent, 30 Mcg, IM, 12 yrs and above (Vdolg) 03/24/2022,09/26/2021 Pneumococcal Conjugate Vacc, 13 Valent (Prevnar) [...] Progress Notes * Anita White MD - 01/21/2024 7:53 AM EDT Ricky Mohs Surgery Note (See separate transcribed operative note for further detail) History: Terry Beckham is a 83 year old patient seen at the request of Yusef Browne MD for evaluation and management of the following lesion: A. Skin, right nasal sidewall, shave: Basal cell carcinoma, at least nodular type Patient problem list reviewed. Patient medication/allergy lists reviewed. Examination: Terry Beckham is alert, oriented and appears well and in no distress. The patient's skin is remarkable for: Right nasal sidewall: 1.0 x 0.9 cm pink plaque Impression/Plan: Basal cell carcinoma - right nasal sidewall MMS 2 g Keflex administered Standard Mohs micrographic technique was utilized to treat this tumor. Microscopic examination of the specimen allowed the Mohs surgeon, whose dual role is to function as both surgeon and pathologist, to precisely identify the location of any remaining tumor or ascertain that the tissue margins were free of tumor. This process of excision of remaining tumor, mapping, and histologic exam was repeated until the tumor was excised completely. Patient identified, procedure verified, site identified and verified with the patient. Time out completed. Surgical removal of the lesion discussed with the patient (risks and benefits, including possibility of scarring, infection, bleeding, recurrence or potential for further treatment). I have specifically identified the site with the patient. I have discussed the fact that the patient will have a scar after the procedure regardless of granulation or repair with sutures. I have discussed that the repair options can range from granulation in some cases to linear or curvilinear closures to larger flaps or grafts. There is a risk of injury to nerves causing temporary or permanent numbness or the inability to move muscles fully. Questions answered and verbal and written consent was obtained. 2 stage(s) Anesthetic: 0.05% lidocaine with 1:100,000 epinephrine. Repair: cartilage graft, donor site: right antihelical cartilage(see separate operative report for details) Discussed repair options ranging from second intent healing, cartilage graft, and local flaps, collectively agreed to proceed with cartilage graft. Absorbable sutures Wound care was discussed verbally, demonstrated and printed wound instructions given as well as wound care supplies. Patient instructed to call with questions or concerns. Personal contact information provided. Follow-up: 1 week Anita White MD Associate, Mohs Micrographic Surgery & Dermatologic Surgery documented in this encounter Procedure Notes * Anita White MD - 01/21/2024 2:01 PM EDT [place]INIC [place] [address] MOHS MICROGRAPHIC SURGERY ModestopettyTerry [facility]# [id number] 01/21/2024 MOHS NUMBER: [id number] BIOPSY: [id number] OPERATION: SURGICAL EXCISION OF CUTANEOUS MALIGNANCY USING CONTINUOUS MICROSCOPIC CONTROL(MOHS MICROGRAPHIC SURGERY) DIAGNOSIS: nodular basal cell carcinoma LOCATION: right nasal sidewall INDICATION FOR MOHS SURGERY: Location SURGEON: Anita White M.D. ASSOCIATE ARTISTIC DIRECTOR SURGEON: NONE ASSOCIATE ARTISTIC DIRECTOR SURGEON: NONE ANESTHETIC: Buffered lidocaine 0.5% with epinephrine 1:200,000 DIALYSIS PATIENT CARE TECHNICIAN: Anita White M.D. PREOPERATIVE SIZE OF LESION: 1.0 x 0.9 cm POSTOPERATIVE SIZE OF DEFECT: 1.3 x 1.2 cm ESTIMATED BLOOD LOSS: 5CC PROCEDURE: Time out called. Patient identified. Procedure matches verbalized consent. Site identified and verified and confirmed immediately prior to the procedure. Site marked. Thin layers of tumor-containing tissue were excised at each stage of surgery. These were cut into smaller tissue sections which were examined microscopically in a systematic fashion. Examination of the entire base and superficial peripheral margin allowed microscopic tumor extensions to be located and mapped. In accordance with the Mohs technique, this procedure enabled the maximum amount of normal tissue to be preserved while achieving the highest cure rate for cutaneous malignancy. At each surgical stage, the patient was prepped, the proposed excision outlined on the skin, and the area was reanesthetized as needed. STAGE I: The patient was prepped and the area of surgery was outlined. The operative site was anesthetized with a local injection of buffered lidocaine 0.5% with epinephrine 1:200,000. Following this the clinically apparent portion of the tumor was surgically removed. Hemostasis was achieved with an electrosurgical device. A thin layer of tissue was surgically excised and hemostasis was obtained. A reference map was drawn and the excised tissue was cut into 4 sections for examination in the micrographic laboratory. Edges of each section were dyed in order to achieve precise orientation. Horizontal sectioning of the base and continuous peripheral margins were then carried out and the prepared microscopic sections were examined by Anita White M.D.. Any areas of residual nodular basal cell carcinoma were indicated on the reference map, pinpointing the location in which further tissue excision was necessary. STAGE II: The patient was returned to the surgery room and prepped in the manner described above. Surgery was directed to the areas of the epidermis and dermis having residual nodular basal cell carcinoma with thin layers of tissue being excised from these regions. Hemostasis was achieved and excised tissue was prepared, as described above, for microscopic analysis. 2 sections were prepared and indicated on a new reference map in order to maintain precise orientation. The microscopic sections were then examined by Anita White M.D.. Any areas of residual nodular basal cell carcinoma were indicated on the reference map, pinpointing the location in which further tissue excision was necessary. At this point, no further tumor cells were identified and the tumor eradication was considered to be complete for a total of 2 stages of surgery in which multiple microscopic slices of 6 tissue sections had been examined. WOUND MANAGEMENT: A piece of cartilage was harvested from the antihelix of the right ear with pericondrium still intact. The graft was trimmed to fit the defect size. The cartilage graft was then secured into place. Total volume of Buffered lidocaine 0.5% with epinephrine 1:200,000, for Mohs Surgery and reconstruction was 12 ml. The total area of repair was 1.5 sq.cm. Subcutaneous closure material: None Cutaneous closure material: Interrupted 5-0 Vicryl and Running 5-0 Chromic gut Anita White M.D. Associate Department of Dermatology documented in this encounter Nursing Notes * Paris Andrade LPN - 01/21/2024 8:04 AM EDT Chief Complaint Patient presents with Mohs Surgery Right Nasal Sidewall Referral Doctor: Pavan Hypertension History: Yes, refer to medication information for treatment. Diabetes History: No Thyroid History: No Bleeding Tendency: Yes, refer to medication information for treatment. Artificial Valve or Joint: Yes, No SBE Prophylaxis Required Pacemaker: yes Defibrillator: no Hepatitis/HIV Exposure: No Smoking: no Consent signed yes documented in this encounter Miscellaneous Notes * Letters - Anita White MD - 01/21/2024 2:02 PM EDT Department of Dermatology [address] [facility] [place] [address] Anita White M.D. Associate Dermatologic Surgery January 21, 2024 Yusef Browne MD [address] [facility] [place] [address] Terry Beckham [id number] CASE: [id number] DX: nodular basal cell carcinoma Dear Referring Provider, Thank you for referring Terry Hagerstaciapetty for treatment of nodular basal cell carcinoma of the right nasal sidewall. The lesion was treated with Mohs micrographic surgery, and required 2 stages for complete removal. The surgical defect was repaired with a cartilage graft. Yours truly, Anita White M.D. documented in this encounter Plan of Treatment Upcoming Encounters Date Type Department Care Team (Late st Contact Info) Description 01/28/2024 2:30 PM EDT Office Visit MOHS Surgery [facility] [address] [facility] [place] [address] [facility] [address] 03/06/2024 10:30 AM EDT Office Visit Otolaryngology [facility] [address] [facility] [place] [address] Jb Truong, DO [address] [facility] [place] [address] 04/10/2024 11:20 AM EDT Office Visit Family Practice [facility] [address] [facility] [address] [place] [address] Ana Maria Rivera MD 200 [place] [address] 05/05/2024 10:40 AM EST Office Visit Sleep Disorders Ctr [facility] [address] [facility] [place] [phone] Lexie William, DO [address] [place] [address] 05/23/2024 10:30 AM EST Office Visit Cardiology, [facility] [address] [facility] [place] [address] Catherine Jimenez CRNP [address] [facility] [place] [address] 06/27/2024 9:00 AM EST Office Visit Urology, [facility] [address] [facility] [place] [address] Nikhil Hutchins MD [place] [phone] Health Maintenance Due Date Last Done Comments Depression Screening 1950 Albumin/Creatinine Ratio 1958 DTaP,Tdap,and Td Vaccines (1 - Tdap) 01/30/2010 01/29/2010 Zoster Vaccines (2 of 3) 11/28/2010 10/03/2010 COVID-19 Vaccine (7 - season) 2023 07/27/2023, 03/24/2022, 09/26/2021, Additional history [...] Diagnoses Diagnosis Basal cell carcinoma (BCC) of right side of nose- Primary documented in this encounter Administered Medications Inactive Administered Medications - up to 3 most recent administrations Medication Order MAR Action Action Date Dose Rate Site Cephalexin (Keflex) cap 2,000 mg 2,000 mg, Oral, ONCE, On Wed01/21/24 at 1030, For 1 dose Given 01/21/2024 12:15 PM EDT 2,000 mg documented in this encounter Care Teams Custom Bow Maker Relationship Specialty Start Date End Date Ana Maria Rivera MD [address] [place] [address] PCP - General Family Medicine 04/08/23 documented as of this encounter
--- OUTSIDE RECORDS SUMMARY | 2024-05-29 04:17 | External Medical Summary | Summary of Care ---
Author Name Unknown Organization [facility] Address [address] [place] [address] Phone [phone] Care Team Providers Care Gas Examiner Name Role Phone Ana Maria Rivera MD Primary Care Provider [phone] Reason for Visit * Reason Onset Date Comments Information 10/25/2023 Encounter Details Date Type Department Care Team (Late st Contact Info) Description 10/25/2023 Telephone Cardiology, [facility] [address] [facility] [place] [address] Shaunna Ngo, DO [address] [facility] [place] [address] Information Allergies No known active allergiesdocumented as of this encounter (statuses as of 12/17/2023) Medications Medication Sig Dispensed Refills Start Date [...] as of this encounter (statuses as of 12/17/2023) Active Problems Problem Noted Date Diagnosed Date Other insomnia 10/08/2023 Chronic constipation 10/08/2023 Mobitz type II atrioventricular block 10/08/2023 Paroxysmal atrial fibrillation 04/08/2023 Status post biventricular pacemaker 04/08/2023 Atonic bladder 04/08/2023 Pure hypercholesterolemia 04/08/2023 LILLIAM on CPAP 04/08/2023 Lower extremity edema 04/08/2023 Hypertension goal BP (blood pressure) < 140/90 1 documented as of this encounter (statuses as of 12/17/2023) Immunizations Name Administration Dates Next Due COVID-19 [...] No 07/05/2023 Does the household have a [facility] center[facility] source of income? (Household - for ages [...] encounter Miscellaneous Notes * Telephone Encounter - Muna Grijalva LPN - 12/17/2023 2:35 PM EDT Gen change 11/24/23 * Telephone Encounter - Muna Grijalva LPN - 10/25/2023 10:49 AM EDT Device ASSISTIVE TECHNOLOGY SPECIALIST 10/23/23 pacer dependent documented in this encounter Plan of Treatment Upcoming Encounters Date Type Department Care Team (Late st Contact Info) Description 12/24/2023 11:00 AM EDT Office Visit Urology Yvon Granger [address] [place] [address] [place] [address] Adrianna Galvez PA-C [address] [place] [address] 12/27/2023 2:15 PM EDT Office Visit Dermatology [facility] 200 [facility] [place] [address] Yusef Browne MD 200 [facility] [place] [address] 01/07/2024 11:20 AM EDT Office Visit Family Practice [facility] [address] [facility] [place] [address] Ana Maria Rivera MD 200 [facility] [place] [address] 05/05/2024 10:40 AM EST Office Visit Sleep Disorders Ctr Stephany Garcia [place] [address] [place] [phone] Lexie William DO [address] [place] [address] 05/23/2024 10:30 AM EST Office Visit Cardiology, [facility] [address] [place] [address] Catherine Jimenez CRNP [address] [place] [address] Health Maintenance Due Date Last Done [...] filedocumented as of this encounter Care Teams Gas Examiner Relationship Specialty Start Date End Date Ana Maria Rivera MD [address] [place] [address] PCP - General Family Medicine 04/08/23 documented as of this encounter
--- OUTSIDE RECORDS SUMMARY | 2024-05-29 04:17 | External Medical Summary | Summary of Care ---
Author Name Unknown Organization [facility] Address [address] [place] [address] Phone [phone] Care Team Providers Care Investment Banking Analyst Name Role Phone Ana Maria Rivera MD Primary Care Provider [phone] Reason for Visit * Reason Onset Date Comments FYI 12/02/2023 Encounter Details Date Type Department Care Team (Late st Contact Info) Description 12/02/2023 Telephone Family Practice [facility] [place] [address] [place] [address] Ana Maria Rivera MD 200 [facility] [address] FYI Allergies No known active allergiesdocumented as of this encounter (statuses as of 12/07/2023) Medications Medication Sig Dispensed Refills Start Date [...] as of this encounter (statuses as of 12/07/2023) Active Problems Problem Noted Date Diagnosed Date Other insomnia 10/08/2023 Chronic constipation 10/08/2023 Mobitz type II atrioventricular block 10/08/2023 Paroxysmal atrial fibrillation 04/08/2023 Status post biventricular pacemaker 04/08/2023 Atonic bladder 04/08/2023 Pure hypercholesterolemia 04/08/2023 LILLIAM on CPAP 04/08/2023 Lower extremity edema 04/08/2023 Hypertension goal BP (blood pressure) < 140/90 1 documented as of this encounter (statuses as of 12/07/2023) Immunizations Name Administration Dates Next Due COVID-19 mRNA, LNP-s, No Pre serve, 2-Dose Series (Moderna) 05/08/2021,08/16/2020,06/29/2020 Covid-19, Mrna, Lnp-s, Pf, B ivalent, 30 Mcg, IM, 12 yrs and above (OrSense) 03/24/2022,09/26/2021 Pneumococcal Conjugate Vacc, 13 Valent (Prevnar) [...] money to get more. Never true 07/05/2023 Sex and Gender Information Value Date Recorded Sex Assigned at Male 06/10/2023 5:39 PM EST Gender Identity Male 06/10/2023 5:39 PM EST Sexual Orientation Straight 06/10/2023 5: 39 PM EST Job Start Date Occupation Industry Not on file Not on file Not on file documented as of this encounter Miscellaneous Notes * Telephone Encounter - Ana Maria Rivera MD - 12/03/2023 4:34 PM EDT Yes, I can prescribe them for him, I just figured since he isn't due for supplies until March andhe sees urology before then they would discuss but that's fine * Telephone Encounter - Nicho Garzon OSA - 12/03/2023 9:20 AM EDT Patient returned call. Patient is not easily able to go to urologist in [place] on the due to distance. But is goingto try. He fears his lack of records may be an issue. Spoke to him about asking for a Mailbox appt on fast pass. Talked with urology, they say pcp could do the catheter scripts. Patient states supplier of catheters states a pcp would be fine for scripts. Currently patient has supplies through summer. (Patient has been using catheters over 30 years) Would like Dr Rivera to reconsider possibility of her providing scripts for catheters. Patient will call back next week by Wednesday if no updates. * Telephone Encounter - Donna Zepeda LPN - 12/03/2023 9:03 AM EDT Called patient was got his voicemail and I was unable to leave a message, will try again later. * Telephone Encounter - Ana Maria Rivera MD - 12/02/2023 4:58 PM EDT Would prefer urology prescribe supplies, he is seeing them in a few weeks and can discuss what is needed * Telephone Encounter - Serene Harvey OSA - 12/02/2023 4:15 PM EDT Pt called back with a little more information. Pt has an atonic bladder and self catheterizes. Willbe up for a new script in March. Pt asking if Dr Rivera will be ok signing the script for the new supplies * Telephone Encounter - Donna Zepeda LPN - 12/02/2023 3:10 PM EDT FYI * Telephone Encounter - Donna Crump OSA - 12/02/2023 3:05 PM EDT Patient just wanted to let his PCP know there might be an order coming through for his catheters. He will discuss more with is 01/06 appt documented in this encounter Plan of Treatment Upcoming Encounters Date Type Department Care Team (Late st Contact Info) Description 12/24/2023 11:00 AM EDT Office Visit [facility] [address] [place] [address] [place] [address] Adrianna Galvez PA-C [address] [place] [address] [place] [address] 12/27/2023 2:15 PM EDT Office Visit Dermatology [facility] [address] [facility] [place] [address] Yusef Browne MD [address] [facility] [place] [address] 01/07/2024 11:20 AM EDT Office Visit Family Practice [facility] [address] [facility] [place] [address] Ana Maria Rivera MD [address] [facility] [place] [address] 05/05/2024 10:40 AM EST Office Visit Sleep Disorders Ctr [facility] 132 [facility] [place] [phone] Lexie William DO 132 [facility] [place] [address] 05/23/2024 10:30 AM EST Office Visit Cardiology, [facility] 132 [facility] [place] [address] Catherine Jimenez CRNP [address] [place] [address] [phone] Health Maintenance Due Date Last Done Comments Depression Screening 1950 Albumin/Creatinine Ratio 1956 DTaP,Tdap,and Td Vaccines (1 - Tdap) 01/30/2010 01/29/2010 Zoster Vaccines (2 of 3) 11/28/2010 10/03/2010 COVID-19 Vaccine (2022- season) 2023 07/27/2023, 03/24/2022, 09/26/2021, Additional history [...] filedocumented as of this encounter Care Teams Investment Banking Analyst Relationship Specialty Start Date End Date Ana Maria Rivera MD [address] [place] [address] PCP - General Family Medicine 04/08/23 documented as of this encounter
--- OUTSIDE RECORDS SUMMARY | 2024-05-29 04:17 | External Medical Summary | Summary of Care ---
Author Name Unknown Organization [facility] Address [address] [place] [address] Phone [phone] Care Team Providers Care Link Trainer Maintenance Worker Name Role Phone Ana Maria Rivera MD Primary Care Provider [phone] Reason for Visit * Reason Comments Re-Check Pt presents today fo r 1 week recheck on R nostril/R ear s/p Mohs with cartilage graft. Pt has no questions or concerns at this time Encounter Details Date Type Department Care Team (Late st Contact Info) Description 01/28/2024 2:30 PM EDT Office Visit MOHS Surgery [facility] [address] [place] [address] Anita White MD 200 [place] [address] Visit for wound check* Allergies No known active allergiesdocumented as of this encounter (statuses as of 02/09/2024) Medications Medication Sig Dispensed Refills Start Date [...] as of this encounter (statuses as of 02/09/2024) Active Problems Problem Noted Date Diagnosed Date Other insomnia 10/08/2023 Chronic constipation 10/08/2023 Mobitz type II atrioventricular block 10/08/2023 Paroxysmal atrial fibrillation 04/08/2023 Status post biventricular pacemaker 04/08/2023 Atonic bladder 04/08/2023 Pure hypercholesterolemia 04/08/2023 LILLIAM on CPAP 04/08/2023 Lower extremity edema 04/08/2023 Hypertension goal BP (blood pressure) < 140/90 1 documented as of this encounter (statuses as of 02/09/2024) Immunizations Name Administration Dates Next Due COVID-19 [...] Progress Notes * Anita White MD - 02/01/2024 5:10 AM EDT SUBJECTIVE: HPI: Terry Beckham is a 83 year old male seen for follow-up of Mohs micrographic surgery of a basal cell carcinoma on the right nasal sidewall repaired with a cartilage graft on 01/24/2024. Wound is healing well thus far and patient has no concerns/complaints. EXAM Surgical wounds on right nose and right ear healing well PLAN Dressing removed Surgical sites cleaned and re-dressed Patient to start daily dressing changes with vaseline and Telfa bandage. Follow-up: 2 weeks The patient was encouraged to contact me with any further questions or concerns. Anita White MD Associate, Mohs Micrographic Surgery & Dermatologic Surgery 01/28/2024 documented in this encounter Nursing Notes * Ava Edouard LPN - 01/28/2024 2:01 PM EDT Chief Complaint Patient presents with Re-Check Pt presents today for 1 week recheck on R nostril/R ear s/p Mohs with cartilage graft. Pt has no questions or concerns at this time documented in this encounter Plan of Treatment Upcoming Encounters Date Type Department Care Team (Late st Contact Info) Description 02/11/2024 2:00 PM EDT Office Visit MOHS Surgery [facility] [address] [facility], [place] [address] Anita White MD [address] [place] [address], [place] [address] 03/06/2024 10:30 AM EDT Office Visit Otolaryngology [facility] [address] [place] [address] Jb Truong, [address] [place] [address] 04/10/2024 11:20 AM EDT Office Visit Family Practice [facility] [address] [facility] [place] [address] Ana Maria Rivera MD [address] [facility] [place] [address] 05/05/2024 10:40 AM EST Office Visit Sleep Disorders Ctr [facility] 132 [facility] [place] [phone] Lexie William DO 132 [facility] [place] [address] 05/23/2024 10:30 AM EST Office Visit Cardiology, [facility] 132 [place] [address] Catherine Jimenez CRNP [address] [facility] [place] [address] 06/27/2024 9:00 AM EST Office Visit Urology, [facility] [address] [facility] [place] [address] Nikhil Hutchins MD 27 [facility] [place] [phone] Health Maintenance Due Date Last Done Comments Depression Screening 1950 Albumin/Creatinine Ratio 1956 Adult Wellness Visit 2004 DTaP,Tdap,and Td Vaccines (1 - Tdap) 01/30/2010 [...] aftercare documented in this encounter Care Teams Link Trainer Maintenance Worker Relationship Specialty Start Date End Date Ana Maria Rivera MD 200 [facility] [place] [address] PCP - General Family Medicine 04/08/23 documented as of this encounter
--- OUTSIDE RECORDS SUMMARY | 2024-05-29 04:17 | External Medical Summary | Summary of Care ---
Author Name Unknown Organization [facility] Address [address] [place] [address] Phone [phone] Care Team Providers Care Automotive Customer Experience Advisor Name Role Phone Ana Maria Rivera MD Primary Care Provider [phone] Reason for Visit * Reason Comments NEW PATIENT * Evaluate & Treat - Unlimited Visits (Within 10 days (routine)) - Closed Specialty Diagnoses / Procedures Referred By Contac t Referred To Contact Urology Diagnoses Atonic bladder Ana Maria Rivera MD [address] [place] [address] Referral ID Status Reason Start Date Expiration Date V isits Requested Visits Authorized [id number] Closed Specialty Services Required 04/08/[phone] Encounter Details Date Type Department Care Team (Late st Contact Info) Description 12/24/2023 11:00 AM EDT Office Visit Urology [facility] [address] [place] [address] [place] [address] Adrianna Galvez PA-C [address] [place] [address] Atonic neurogenic bladder*; Urinary retention Allergies No known active allergiesdocumented as of this encounter (statuses as of 12/24/2023) Medications Medication Sig Dispensed Refills Start Date [...] as of this encounter (statuses as of 12/24/2023) Active Problems Problem Noted Date Diagnosed Date Other insomnia 10/08/2023 Chronic constipation 10/08/2023 Mobitz type II atrioventricular block 10/08/2023 Paroxysmal atrial fibrillation 04/08/2023 Status post biventricular pacemaker 04/08/2023 Atonic bladder 04/08/2023 Pure hypercholesterolemia 04/08/2023 LILLIAM on CPAP 04/08/2023 Lower extremity edema 04/08/2023 Hypertension goal BP (blood pressure) < 140/90 1 documented as of this encounter (statuses as of 12/24/2023) Immunizations Name Administration Dates Next Due COVID-19 [...] on file documented as of this encounter Nursing Notes * Myriam Hughes LPN - 12/24/2023 10:11 AM EDT New patient referred by PCP for atonic bladder CIC x 6day [place] from out of [place] documented in this encounter Plan of Treatment Upcoming Encounters Date Type Department Care Team (Late st Contact Info) Description 12/27/2023 2:15 PM EDT Office Visit Dermatology [facility] 200 [place] [address] Yusef Browne MD [address] [facility] [place] [address] 01/07/2024 11:20 AM EDT Office Visit Family Practice [facility] [address] [facility] [place] [address] Ana Maria Rivera MD [address] [place] [address] 05/05/2024 10:40 AM EST Office Visit Sleep Disorders Ctr [facility] [address] [place] [phone] Lexie William DO [address] [place] [address] 05/23/2024 10:30 AM EST Office [facility] [address] [place] [address] Catherine Jimenez CRNP [address] [place] [address] [place] [address] 06/27/2024 9:00 AM EST Office Visit Urology, [facility] [address] [place] [address] Nikhil Hutchins MD [address] [place] [address] Scheduled Referrals Name Type Priority Associated Diagnoses Orde r Schedule UROLOGY REFERRAL OP Referral Within 10 da [...] as of this encounter Visit Diagnoses Diagnosis Atonic neurogenic bladder- Primary Neurogenic bladder, NOS Urinary retention Retention of urine, unspecified documented in this encounter Care Teams Automotive Customer Experience Advisor Relationship Specialty Start Date End Date Ana Maria Rivera MD [address] [place], [place] [address] PCP - General Family Medicine 04/08/23 documented as of this encounter
--- OUTSIDE RECORDS SUMMARY | 2024-05-29 04:17 | External Medical Summary | Summary of Care ---
Author Name Unknown Organization [facility] Address [address] [place] [address] Phone [phone] Care Team Providers Care Nylon Winder Name Role Phone Ana Maria Rivera MD Primary Care Provider [phone] Encounter Details Date Type Department Care Team (Late st Contact Info) Description 02/06/2024 Result Scan Unspecified Department Shaunna Ngo, DO [address] [place] [address] <No scans attached> Allergies No known active allergiesdocumented as of this encounter (statuses as of 02/06/2024) Medications Medication Sig Dispensed Refills Start Date [...] as of this encounter (statuses as of 02/06/2024) Active Problems Problem Noted Date Diagnosed Date Other insomnia 10/08/2023 Chronic constipation 10/08/2023 Mobitz type II atrioventricular block 10/08/2023 Paroxysmal atrial fibrillation 04/08/2023 Status post biventricular pacemaker 04/08/2023 Atonic bladder 04/08/2023 Pure hypercholesterolemia 04/08/2023 LILLIAM on CPAP 04/08/2023 Lower extremity edema 04/08/2023 Hypertension goal BP (blood pressure) < 140/90 1 documented as of this encounter (statuses as of 02/06/2024) Immunizations Name Administration Dates Next Due COVID-19 mRNA, LNP-s, No Pre serve, 2-Dose Series (Moderna) 05/08/2021,08/16/2020,06/29/2020 Covid-19, Mrna, Lnp-s, Pf, B ivalent, 30 Mcg, IM, 12 yrs and above ([employer]) 03/24/2022,09/26/2021 Pneumococcal Conjugate Vacc, 13 Valent (Prevnar) [...] 2:00 PM EDT Office Visit MOHS Surgery [facility] 200 [place] [address] Anita White MD 200 [facility] [place], [place] [address] 03/06/2024 10:30 AM EDT Office Visit Otolaryngology [facility] 132 [facility] [place] [address] Jb Truong, DO [address] [facility] [place] [address] 04/10/2024 11:20 AM EDT Office Visit Family [facility] [address] [facility] [place] [address] Ana Maria Rivera MD 200 [facility] [place] [address] 05/05/2024 10:40 AM EST Office Visit Sleep Disorders Ctr [facility] [address] [facility] [place] [phone] Lexie William DO [address] [facility] [place] [address] 05/23/2024 10:30 AM EST Office Visit Cardiology, [facility] [address] [facility] [place] [address] Catherine Jimenez CRNP 400 [facility] [place] [address] 06/27/2024 9:00 AM EST Office Visit Urology, [facility] 132 [facility] [place] [address] Nikhil Hutchins MD [address] [place] [address] [place] [address] Health Maintenance Due Date Last Done Comments [...] Date/Time Associated Diagnosis Comments CARDIOLOGY SCANNED RESULT 02/06/2024 documented in this encounter Results * CARDIOLOGY SCANNED RESULT (02/06/2024) 02/06/2024 Shaunna Ngo DO OTHER documented in this encounter Care Teams Nylon Winder Relationship Specialty Start Date End Date Ana Maria Rivera MD [address] [place] [address] PCP - General Family Medicine 04/08/23 documented as of this encounter
--- OUTSIDE RECORDS SUMMARY | 2024-05-29 04:17 | External Medical Summary | Summary of Care ---
Author Name Unknown Organization [facility] Address [address] [place] [address] Phone [phone] Care Team Providers Care Medical Insurance Claims Specialist Name Role Phone Ana Maria Rivera MD Primary Care Provider [phone] Reason for Visit * Reason Onset Date Comments Advice 12/10/2023 Encounter Details Date Type Department Care Team (Late st Contact Info) Description 12/10/2023 Telephone Urology [facility] [address] [place], [place] [phone] Services, Scheduling [address] [place] [address] Advice Allergies No known active allergiesdocumented as [...] 30 Mcg, IM, 12 yrs and above ([employer] 03/24/2022,09/26/2021 Pneumococcal Conjugate Vacc, 13 Valent (Prevnar) [...] encounter Miscellaneous Notes * Telephone Encounter - Adrianna Galvez PA-C - 12/10/2023 1:29 PM EDT Noted, thanks! * Telephone Encounter - Clara Nails MED ASSIST - 12/10/2023 1:16 PM EDT NIDHI Rodas. We will keep an eye out them. * Telephone Encounter - Kemi Green OSA [...] [address] [place] [address] [place] [address] Adrianna Galvez PA-C [address] [place] [address] [place] [address] 12/27/2023 2:15 PM EDT Office Visit Dermatology [facility] [address] [place] [address] [address] Yusef Browne MD [address] [place] [address] [address] 01/07/2024 11:20 AM EDT Office Visit Family Practice [facility] [place] [address] [place] [address] [address] Ana Maria Rivera MD [address] [place] [address] [address] 05/05/2024 10:40 AM EST Office Visit Sleep Disorders Ctr Stephany [facility], [place] [address] [place] [phone] Lexie William, DO [address] [place] [address] 05/23/2024 10:30 AM EST Office Visit Cardiology, [facility] [address] [place] [address] Catherine Jimenez CRNP [address] [place] [phone] Health Maintenance Due Date Last Done Comments [...] filedocumented as of this encounter Care Teams Medical Insurance Claims Specialist Relationship Specialty Start Date End Date Ana Maria Rivera MD [address] [place] [address] PCP - General Family Medicine 04/08/23 documented as of this encounter
--- OUTSIDE RECORDS SUMMARY | 2024-05-29 04:17 | External Medical Summary | Summary of Care ---
Author Name Unknown Organization [facility] Address [address] [place] [address] Phone [phone] Care Team Providers Care Filling Station Attendant Name Role Phone Ana Maria Rivera MD Primary Care Provider [phone] Reason for Visit * Reason Comments Follow Up Pt presents today fo r bandage on nose popping up. Nurse reinforced bandage. Encounter Details Date Type Department Care Team (Late st Contact Info) Description 01/24/2024 10:30 AM EDT Office Visit MOHS Surgery [facility] [address] [address] Anita White MD 200 [place] [address] Visit for wound check* Allergies No known [...] 30 Mcg, IM, 12 yrs and above ([employer]) 03/24/2022,09/26/2021 Pneumococcal Conjugate Vacc, 13 Valent (Prevnar) [...] Progress Notes * Anita White MD - 01/24/2024 11:58 PM EDT Patient seen by nurse only 01/23/2025. Bandage reinforced. Anita White MD documented in this encounter Nursing Notes * Ava Edouard LPN - 01/24/2024 10:13 AM EDT Chief Complaint Patient presents with Follow Up Pt presents today for bandage on nose popping up. Nurse reinforced bandage. documented in this encounter Plan of Treatment Upcoming Encounters Date Type Department Care Team (Late st Contact Info) Description 02/11/2024 2:00 PM EDT Office Visit MOHS Surgery [facility] 200 [facility] [address] Anita White MD [address] [place] [address] [place] [address] 03/06/2024 10:30 AM EDT Office Visit Otolaryngology [facility] [address] [place] [address] Jb Truong, DO [address] [place] [address] 04/10/2024 11:20 AM EDT Office Visit Family Practice [facility] 200 [place] [address] Ana Maria Rivera MD 200 [facility] [address] 05/05/2024 10:40 AM EST [facility] [address] [place] [phone] Lexie William, DO [address] [place] [address] 05/23/2024 10:30 AM EST Office Visit Cardiology, [facility] 132 [facility] [place] [address] Catherine Jimenez CRNP 400 [facility] [place] [address] 06/27/2024 9:00 AM EST Office Visit Urology, [facility] 132 [facility] [place] [address] Nikhil Hutchins MD [address] [place] [address] Health Maintenance Due Date Last Done Comments [...] aftercare documented in this encounter Care Teams Filling Station Attendant Relationship Specialty Start Date End Date Ana Maria Rivera MD [address] [place] [address] PCP - General Family Medicine 04/08/23 documented as of this encounter
--- OUTSIDE RECORDS SUMMARY | 2024-05-29 04:17 | External Medical Summary | Summary of Care ---
Author Name Unknown Organization [facility] Address [address] [place] [address] Phone [phone] Care Team Providers Care Head Turbine Operator Name Role Phone Ana Maria Rivera MD Primary Care Provider [phone] Reason for Visit * Reason Onset Date Comments Advice 12/10/2023 Encounter Details Date Type Department Care Team (Late st Contact Info) Description 12/10/2023 Telephone Urology [facility] [address] [place], [place] [phone] Services, Scheduling [address] [place] [address] Advice Allergies No known active allergiesdocumented as [...] 30 Mcg, IM, 12 yrs and above ([employer]) 03/24/2022,09/26/2021 Pneumococcal Conjugate Vacc, 13 Valent (Prevnar) [...] encounter Miscellaneous Notes * Telephone Encounter - Clara Nails, MED ASSIST - 12/10/2023 1:16 PM EDT [...] [address] [place] [address] [place] [address] Adrianna Galvez PA-C [address] [place] [address] [place] [address] 12/27/2023 2:15 PM EDT Office Visit Dermatology [facility] 200 [place] [address] Yusef Browne MD [address] [place] [address] 01/07/2024 11:20 AM EDT Office Visit Family Practice [facility] [address] [facility] [place] [address] Ana Maria Rivera MD [address] [facility] [place] [address] 05/05/2024 10:40 AM EST Office Visit Sleep Disorders Ctr Stephany Garcia [place] [address] [place] [phone] Lexie William DO [address] [place] [address] 05/23/2024 10:30 AM EST Office Visit Cardiology, [facility] [address] [place] [address] Catherine Jimenez CRNP [address] [place] [address] Health Maintenance [...] filedocumented as of this encounter Care Teams Head Turbine Operator Relationship Specialty Start Date End Date Ana Maria Rivera MD [address] [place] [address] PCP - General Family Medicine 04/08/23 documented as of this encounter
--- OUTSIDE RECORDS SUMMARY | 2024-05-29 04:17 | External Medical Summary | Summary of Care ---
Author Name Unknown Organization [facility] Address [address] [place] [address] Phone [phone] Care Team Providers Care Whip Sawyer Name Role Phone Ana Maria Rivera MD Primary Care Provider [phone] Reason for Referral * Evaluate & Treat - Unlimited Visits (Within 30 days (routine)) - Authorized Specialty Diagnoses / Procedures Referred By Contac t Referred To Contact Otolaryngology Diagnoses Bilateral impacted cerumen Ana Maria Rivera MD [facility] [place] [address] Referral ID Status Reason Start Date Expiration Date Visits Requested Visits Authorized [id number] Authorized Specialty Services Required 01/07/2024 999 999 Question Answer Referral Priority Within 30 days (routine) Where should this appointment be scheduled? Ricky Reason for Referral Ear Conditions Specific Condition: Cerumen (Earwax) Reason for Visit * Reason Comments Re-Check Encounter Details Date Type Department Care Team (Latest Contact Info) Description 01/07/2024 11:20 AM EDT Office Visit Family Practice [facility] [place] [address] [place] [address] Ana Maria Rivera MD [address] [place] [address] Hypertension goal BP (blood pressure) < 140/90*; LILLIAM on CPAP; Paroxysmal atrial fibrillation (HCC); Mobitz type II atrioventricular block; Status post biventricular pacemaker; Pure hypercholesterolemia; Atonic bladder; Chronic constipation; Bilateral impacted cerumen Allergies No known active allergiesdocumented as of this encounter (statuses as of 01/10/2024) Medications Medication Sig Dispensed Refills Start Date [...] as of this encounter (statuses as of 01/10/2024) Active Problems Problem Noted Date Diagnosed Date Other insomnia 10/08/2023 Chronic constipation 10/08/2023 Mobitz type II atrioventricular block 10/08/2023 Paroxysmal atrial fibrillation 04/08/2023 Status post biventricular pacemaker 04/08/2023 Atonic bladder 04/08/2023 Pure hypercholesterolemia 04/08/2023 LILLIAM on CPAP 04/08/2023 Lower extremity edema 04/08/2023 Hypertension goal BP (blood pressure) < 140/90 1 documented as of this encounter (statuses as of 01/10/2024) Immunizations Name Administration Dates Next Due COVID-19 [...] Sign Reading Time Taken Comments Blood Pressure 138/76 01/07/2024 10:41 AM EDT Pulse 60 01/07/2024 10:41 AM EDT Temperature 36.7 C (98.1 F) 01/07/2024 10:41 AM E DT Respiratory Rate 18 01/07/2024 10:41 AM EDT Oxygen Saturation 98% 01/07/2024 10:41 AM EDT Inhaled Oxygen Concentration - - Weight 87.7 kg (193 lb 6.4 oz) 01/07/2024 10:41 AM EDT Height - - Body Mass Index 26.23 10/26/2023 9:26 AM EDT documented in this encounter Progress Notes * Ana Maria Rivera MD - 01/07/2024 10:55 AM EDT Subjective Chief Complaint Patient presents with Re-Check HPI: Terry Beckham is a 83 year old male. Patient is unaccompanied. The following issues were addressed today: Patient presents today for routine follow-up. Has no new concerns today. Overall doing well. He was able to recently establish with urology for atonic bladder. Self caths. Has prescription forcatheter supplies. Has MOHS surgery coming up for lesion on his nose. Had generator change of pacemaker. No concerns. Incision is healing well. Asking for ENT referral. Previously saw them twice yearly for cerumen removal. Review of Systems: See HPI Objective BP 138/76 | Pulse 60 | Temp 36.7 C (98.1 F) (Tympanic) | Resp 18 | Wt 87.7 kg (193 lb 6.4 oz) |SpO2 98% | BMI 26.23 kg/m | BSA 2.11 m Wt Readings from Last 3 Encounters: 01/07/24 87.7 kg (193 lb 6.4 oz) 11/16/23 86 kg (189 lb 8 oz) 10/26/23 86.2 kg (190 lb) BP Readings from Last 3 Encounters: 01/07/24 138/76 11/16/23 138/80 10/26/23 128/80 General: Well-appearing, no acute distress Cardiovascular: Regular rate and rhythm Respiratory: Good respiratory effort, breath sounds equal and clear to auscultation bilaterally Extremities: No edema Neurological: Alert and oriented, no focal deficits noted Psychiatric: Appropriate mood and affect Assessment & Plan 1. Hypertension goal BP (blood pressure) < 140/90 Well-controlled. Continue amlodipine 5mg, losartan 100mg, furosemide 40mg. 2. LILLIAM on CPAP Stable. Compliant with CPAP. 3. Paroxysmal atrial fibrillation (HCC) Patient is sinus rhythm today. Continue carvedilol 25mg BID. 4. Mobitz type II atrioventricular block Stable. 5. Status post biventricular pacemaker Stable. 6. Pure hypercholesterolemia Well-controlled. Continue atorvastatin 10mg. 7. Atonic bladder Stable. Continue self catheterization. Follow-up with urology as scheduled. 8. Chronic constipation Continue daily MiraLAX. 9. Bilateral impacted cerumen - ADULT/PEDS OTOLARYNGOLOGY REFERRAL OP Return in about 3 months (around 04/08/2024). This note was electronically signed by Ana Maria Rivera MD documented in this encounter Nursing Notes * Alesia Olvera LPN - 01/07/2024 10:37 AM EDT Terry Beckham presents for 3 month recheck. Medications & HM reviewed. documented in this encounter Plan of Treatment Upcoming Encounters Date Type Department Care Team (Late st Contact Info) Description 01/21/2024 8:30 AM EDT Office Visit MOHS Surgery [facility] [address] [place] [address] Anita White MD [facility] [address] 03/06/2024 10:30 AM EDT Office Visit Otolaryngology [facility] [address] [facility] [place] [address] Jb Truong, DO 132 [facility] [place] [address] 04/10/2024 11:20 AM EDT Office Visit Family Practice [facility] [address] [place] [address] Ana Maria Rivera MD [address] [facility] [address] 05/05/2024 10:40 AM EST Office Visit Sleep Disorders Ctr [facility] [address] [facility] [place] [phone] Lexie William, DO 132 [facility] [place] [address] 05/23/2024 10:30 AM EST Office Visit Cardiology, [facility] 132 [facility] [place] [address] Catherine Jimenez CRNP 400 [facility] [place] [address] 06/27/2024 9:00 AM EST Office Visit Urology, [facility] [address] [facility] [place] [address] Nikhil Hutchins MD [place] [phone] Scheduled Referrals Name Type Priority Associated Diagnoses [...] Diagnosis Hypertension goal BP (blood pressure) < 140/90- Primary Unspecified essential hypertension LILLIAM on CPAP Obstructive sleep apnea (adult) (pediatric) Paroxysmal atrial fibrillation (HCC) Atrial fibrillation Mobitz type II atrioventricular block Mobitz (type) II atrioventricular block Status post biventricular pacemaker Cardiac pacemaker in situ Pure hypercholesterolemia Atonic bladder Atony of bladder Chronic constipation Unspecified constipation Bilateral impacted cerumen Impacted cerumen documented in this encounter Care Teams Whip Sawyer Relationship Specialty Start Date End Date Ana Maria Rivera MD [address] [facility] [place], [place] [address] PCP - General Family Medicine 04/08/23 documented as of this encounter"
--- OUTSIDE RECORDS SUMMARY | 2024-05-29 04:17 | External Medical Summary | Summary of Care ---
Author Name Unknown Organization [facility] Address [address] [place] [address] Phone [phone] Care Team Providers Care Security Director Name Role Phone Ana Maria Rivera MD Primary Care Provider [phone] Reason for Referral * Evaluate & Treat - Unlimited Visits (Within 30 days (routine)) - Authorized Specialty Diagnoses / Procedures Referred By Contac t Referred To Contact Dermatology Diagnoses Basal cell carcinoma (BCC) of skin of nose Yusef Browne MD 200 [facility] [place] [address] Referral ID Status Reason Start Date Expiration Date Visits Requested Visits Authorized [id number] Authorized Specialty Services Required 12/28/2023 1 1 [...] Info) Description 12/28/2023 Telephone Dermatology [facility] [place] [address] [place] [address] Yusef Browne MD [address] [place] [address] Allergies No known active allergiesdocumented as of this encounter (statuses as of 12/28/2023) Medications Medication Sig Dispensed Refills Start Date [...] as of this encounter (statuses as of 12/28/2023) Active Problems Problem Noted Date Diagnosed Date Other insomnia 10/08/2023 Chronic constipation 10/08/2023 Mobitz type II atrioventricular block 10/08/2023 Paroxysmal atrial fibrillation 04/08/2023 Status post biventricular pacemaker 04/08/2023 Atonic bladder 04/08/2023 Pure hypercholesterolemia 04/08/2023 LILLIAM on CPAP 04/08/2023 Lower extremity edema 04/08/2023 Hypertension goal BP (blood pressure) < 140/90 1 documented as of this encounter (statuses as of 12/28/2023) Immunizations Name Administration Dates Next Due COVID-19 mRNA, LNP-s, No Pre serve, 2-Dose Series (Moderna) 05/08/2021,08/16/2020,06/29/2020 Covid-19, Mrna, Lnp-s, Pf, B ivalent, 30 Mcg, IM, 12 yrs and above ([employer]) 03/24/2022,09/26/2021 Pneumococcal Conjugate Vacc, 13 Valent (Prevnar) [...] 11:20 AM EDT Office Visit Family Practice [facility] 200 [place] [address] Ana Maria Rivera MD [address] [facility] [place] [address] 05/05/2024 10:40 AM EST Office Visit [facility] Disorders Ctr [facility] [place] [phone] Lexie William DO [facility] [place] [address] 05/23/2024 10:30 AM EST Office Visit Cardiology, [facility] [address] [facility] [place] [address] Catherine Jimenez CRNP 400 [facility] [place] [address] 06/27/2024 9:00 AM EST Office Visit Urology, [facility] 132 [facility] [place] [address] Nikhil Hutchins MD [address] [place] [phone] Scheduled Referrals Name Type Priority Associated Diagnoses [...] Primary documented in this encounter Care Teams Security Director Relationship Specialty Start Date End Date Ana Maria Rivera MD [address] [place] [address] PCP - General Family Medicine 04/08/23 documented as of this encounter
--- OUTSIDE RECORDS SUMMARY | 2024-05-29 04:17 | External Medical Summary | Summary of Care ---
Author Name Unknown Organization [facility] Address [address] [place] [address] Phone [phone] Care Team Providers Care University Administrator Name Role Phone Ana Maria Rivera MD Primary Care Provider [phone] Reason for Visit * Reason Comments Wound Recheck S/P Mohs R nasal miguelito ewall 01/21/24 w/ cartilage graft from R ear Encounter Details Date Type Department Care Team (Late st Contact Info) Description 02/11/2024 2:00 PM EDT Office Visit MOHS Surgery [facility] 200 [place] [address] Anita White MD [address] [place] [address] Visit for wound check* Allergies No known active allergiesdocumented as of this encounter (statuses as of 02/15/2024) Medications Medication Sig Dispensed Refills Start Date [...] as of this encounter (statuses as of 02/15/2024) Active Problems Problem Noted Date Diagnosed Date Other insomnia 10/08/2023 Chronic constipation 10/08/2023 Mobitz type II atrioventricular block 10/08/2023 Paroxysmal atrial fibrillation 04/08/2023 Status post biventricular pacemaker 04/08/2023 Atonic bladder 04/08/2023 Pure hypercholesterolemia 04/08/2023 LILLIAM on CPAP 04/08/2023 Lower extremity edema 04/08/2023 Hypertension goal BP (blood pressure) < 140/90 1 documented as of this encounter (statuses as of 02/15/2024) Immunizations Name Administration Dates Next Due COVID-19 [...] Progress Notes * Anita White MD - 02/14/2024 1:04 PM EDT SUBJECTIVE: HPI: Terry Beckham is a 83 year old male s/p Mohs micrographic surgery of a basal cell carcinoma on the right nasal sidewall/right ala repaired with a cartilage graft on 01/24/2024. Surgical sites (onright nose and right ear) healing well thus far. EXAM Granulating surgical wound on right ala/nasal sidewall dry/crusted Small crusted open area on right antihelix PLAN Surgical sites cleaned and re-dressed Continue Vaseline and bandage to surgical sites on right nose and right ear (small crusted area) until completely healed Follow-up: 3 weeks The patient was encouraged to contact me with any further questions or concerns. Anita White MD Associate, Mohs Micrographic Surgery & Dermatologic Surgery 02/11/2024 documented in this encounter Nursing Notes * Marlene Hernandez LPN - 02/11/2024 1:20 PM EDT Chief Complaint Patient presents with Wound Recheck S/P Mohs R nasal sidewall 01/21/24 w/ cartilage graft from R ear documented in this encounter Plan of Treatment Upcoming Encounters Date Type Department Care Team (Late st Contact Info) Description 03/03/2024 2:45 PM EDT Office Visit MOHS Surgery [facility] 200 [facility], [place] [address] Anita White MD [address] [place], [place] [address] [address] 03/06/2024 10:30 AM EDT Office Visit Otolaryngology [facility] [address] [place] [address] Jb Truong DO [address] [place] [address] 04/10/2024 11:20 AM EDT Office Visit Family Practice [facility] 200 [facility] [place] [address] Ana Maria Rivear MD 200 [facility] [place] [address] 05/05/2024 10:40 AM EST Office Visit Sleep Disorders Ctr [facility] 132 [facility] [place] [phone] Lexie William DO 132 [facility] [place] [address] 05/23/2024 10:30 AM EST Office Visit Cardiology, [facility] 132 [facility] [place] [address] Catherine Jimenez CRNP 400 [facility] [place] [address] 06/27/2024 9:00 AM EST Office Visit Urology, [facility] 132 [facility] [place] [address] Nikhil Hutchins MD [address] [facility] [place] [phone] Health Maintenance Due Date Last Done Comments [...] aftercare documented in this encounter Care Teams University Administrator Relationship Specialty Start Date End Date Ana Maria Rivera MD [address] [place] [address] PCP - General Family Medicine 04/08/23 documented as of this encounter
--- OUTSIDE RECORDS SUMMARY | 2024-05-29 04:18 | External Medical Summary | Summary of Care ---
Author Name Unknown Organization [facility] Address [address] [place] [address] Phone [phone] Care Team Providers Care Channeling Machine Runner Name Role Phone Ana Maria Rivera MD Primary Care Provider Reason for Visit * Reason Onset Date Comments FYI 12/02/2023 Encounter Details Date Type Department Care Team (Late st Contact Info) Description 12/02/2023 Telephone Family Practice [facility] [place] 200 [facility] [place] [address] Ana Maria Rivera MD 200 [place] [address] FYI Allergies No known active allergiesdocumented as of this encounter (statuses as of 12/02/2023) Medications Medication Sig Dispensed Refills Start Date [...] as of this encounter (statuses as of 12/02/2023) Active Problems Problem Noted Date Diagnosed Date Other insomnia 10/08/2023 Chronic constipation 10/08/2023 Mobitz type II atrioventricular block 10/08/2023 Paroxysmal atrial fibrillation 04/08/2023 Status post biventricular pacemaker 04/08/2023 Atonic bladder 04/08/2023 Pure hypercholesterolemia 04/08/2023 LILLIAM on CPAP 04/08/2023 Lower extremity edema 04/08/2023 Hypertension goal BP (blood pressure) < 140/90 1 documented as of this encounter (statuses as of 12/02/2023) Immunizations Name Administration Dates Next Due COVID-19 mRNA, LNP-s, No Pre serve, 2-Dose Series (Moderna) 05/08/2021,08/16/2020,06/29/2020 Covid-19, Mrna, Lnp-s, Pf, B ivalent, 30 Mcg, IM, 12 yrs and above ([employer]) 03/24/2022,09/26/2021 Pneumococcal Conjugate Vacc, 13 Valent (Prevnar) [...] Visit Urology [facility] [address] [place] [address] [place] [address] Adrianna Galvez PA-C [address] [place] [address] [place] [address] 12/27/2023 2:15 PM EDT Office Visit Dermatology [facility] 200 [facility] [place] [address] Yusef Browne MD 200 [facility] [place] [address] 01/07/2024 11:20 AM EDT Office Visit Family Practice [facility] 200 [facility] [place] [address] Ana Maria Rivera MD 200 [facility] [place] [address] 05/05/2024 10:40 AM EST Office Visit Sleep Disorders Ctr [facility] 132 [facility] [place] [phone] Lexie William DO [address] [place] [address] 05/23/2024 10:30 AM EST [facility] 132 [facility] [place] [address] Catherine Jimenez CRNP 400 [facility] [place] [address] Health Maintenance Due Date Last Done Comments [...] filedocumented as of this encounter Care Teams Channeling Machine Runner Relationship Specialty Start Date End Date Ana Maria Rivera MD [address] [place] [address] PCP - General Family Medicine 04/08/23 documented as of this encounter
--- OUTSIDE RECORDS SUMMARY | 2024-05-29 04:18 | External Medical Summary | Summary of Care ---
Author Name Unknown Organization [facility] Address [address] [place] [address] Phone [phone] Care Team Providers Care Straight Cutter Machine Name Role Phone Ana Maria Rivera MD Primary Care Provider [phone] Reason for Visit * Reason Onset Date Comments FYI 12/02/2023 Encounter Details Date Type Department Care Team (Late st Contact Info) Description 12/02/2023 Telephone Family Practice [facility] [place] 200 [facility] [place] [address] Ana Maria Rivera MD 200 [place] [address] FYI Allergies No known active allergiesdocumented as of this encounter (statuses as of 12/03/2023) Medications Medication Sig Dispensed Refills Start Date [...] as of this encounter (statuses as of 12/03/2023) Active Problems Problem Noted Date Diagnosed Date Other insomnia 10/08/2023 Chronic constipation 10/08/2023 Mobitz type II atrioventricular block 10/08/2023 Paroxysmal atrial fibrillation 04/08/2023 Status post biventricular pacemaker 04/08/2023 Atonic bladder 04/08/2023 Pure hypercholesterolemia 04/08/2023 LILLIAM on CPAP 04/08/2023 Lower extremity edema 04/08/2023 Hypertension goal BP (blood pressure) < 140/90 1 documented as of this encounter (statuses as of 12/03/2023) Immunizations Name Administration Dates Next Due COVID-19 mRNA, LNP-s, No Pre serve, 2-Dose Series (Moderna) 05/08/2021,08/16/2020,06/29/2020 Covid-19, Mrna, Lnp-s, Pf, B ivalent, 30 Mcg, IM, 12 yrs and above ([employer]) 03/24/2022,09/26/2021 Pneumococcal Conjugate Vacc, 13 Valent (Prevnar) [...] encounter Miscellaneous Notes * Telephone Encounter - Nicho Garzon OSA - 12/03/2023 9:20 AM EDT Patient returned call. Patient is not easily able to go to urologist in [place] on the due to distance. But is goingto try. He fears his lack of records may be an issue. Spoke to him about asking for a [facility] appt on fast pass. Talked with urology, [...] [address] [place] [address] [place] [address] Adrianna Galvez PA-C [address] [place] [address] [place] [address] 12/27/2023 2:15 PM EDT Office Visit Dermatology [facility] [place] 200 [facility] [place] [address] [place] [address] Yusef Browne MD 200 [facility] [place] [address] 01/07/2024 11:20 AM EDT [facility] [place] [address] [place] [address] [address] Ana Maria Rivera MD [address] [place] [address] 05/05/2024 10:40 AM EST Office Visit Sleep Disorders Ctr [facility] 132 [facility] [place] [phone] Lexie William DO 132 [facility] [place] [address] 05/23/2024 10:30 AM EST Office Visit Cardiology, [facility] 132 [facility] [place] [address] Catherine Jimenez CRNP 400 [facility] [place] [phone] Health Maintenance Due Date Last Done Comments [...] filedocumented as of this encounter Care Teams Straight Cutter Machine Relationship Specialty Start Date End Date Ana Maria Rivera MD [address] [place] [address] PCP - General Family Medicine 04/08/23 documented as of this encounter
--- OUTSIDE RECORDS SUMMARY | 2024-05-29 04:18 | External Medical Summary | Summary of Care ---
Author Name Unknown Organization [facility] Address [address] [place] [address] Phone [phone] Care Team Providers Care Aircraft Electronics Technical Officer Name Role Phone Ana Maria Rivera MD Primary Care Provider [phone] Reason for Visit * Reason Onset Date Comments FYI 12/02/2023 Encounter Details Date Type Department Care Team (Late st Contact Info) Description 12/02/2023 Telephone Family Practice [facility] [place] 200 [facility] [place] [address] Ana Maria Rivera MD 200 [place] [address] FYI Allergies No known active allergiesdocumented as [...] 30 Mcg, IM, 12 yrs and above ([employer]) 03/24/2022,09/26/2021 Pneumococcal Conjugate Vacc, 13 Valent (Prevnar) [...] easily able to go to urologist in [place] on the due to distance. But is goingto try. He fears his lack of records may be an issue. Spoke to him about asking for a [facility] appt on fast pass. Talked with urology, [...] [address] [place] [address] [place] [address] Adrianna Galvez PA-C [address] [place] [address] [place] [address] 12/27/2023 2:15 PM EDT Office Visit Dermatology [facility] [place] 200 [facility] [place] [address] [place] [address] Yusef Browne MD 200 [facility] [place] [address] 01/07/2024 11:20 AM EDT [facility] [place] [address] [place] [place] [address] Ana Maria Rivera MD [address] [place] [address] 05/05/2024 10:40 AM EST Office Visit Sleep Disorders Ctr [facility] 132 [facility] [place] [phone] Lexie William DO 132 [facility] [place] [address] 05/23/2024 10:30 AM EST Office Visit Cardiology, [facility] 132 [facility] [place] [address] Catherine Jimenez CRNP 400 [facility] [place] [phone] Health Maintenance Due Date Last Done Comments [...] filedocumented as of this encounter Care Teams Aircraft Electronics Technical Officer Relationship Specialty Start Date End Date Ana Maria Rivera MD [address] [place] [address] PCP - General Family Medicine 04/08/23 documented as of this encounter
--- OUTSIDE RECORDS SUMMARY | 2024-05-29 04:18 | External Medical Summary | Summary of Care ---
Author Name Unknown Organization [facility] Address [address] [place] [address] Phone [phone] Care Team Providers Care Fishing Vessel Captain Name Role Phone Ana Maria Rivera MD Primary Care Provider [phone] Reason for Visit * Reason Onset Date Comments FYI 12/02/2023 Encounter Details Date Type Department Care Team (Late st Contact Info) Description 12/02/2023 Telephone Family Practice [facility] [place] 200 [facility] [address] Ana Maria Rivera MD 200 [place] [address] FYI Allergies No known active allergiesdocumented as [...] 30 Mcg, IM, 12 yrs and above ([email or web address]) 03/24/2022,09/26/2021 Pneumococcal Conjugate Vacc, 13 Valent (Prevnar) [...] easily able to go to urologist in [place] on the due to distance. But is goingto try. He fears his lack of records may be an issue. Spoke to him about asking for a [facility] appt on fast pass. Talked with urology, [...] [address] [place] [address] [place] [address] Adrianna Galvez PA-C [address] [place] [address] [place] [address] 12/27/2023 2:15 PM EDT Office Visit Dermatology [facility] [place] [facility] [place] [address] Yusef Browne MD 200 [facility] [place] [address] 01/07/2024 11:20 AM EDT [facility] [place] [address] [address] Ana Maria Rivera MD [address] [place] [address] 05/05/2024 10:40 AM EST Office Visit Sleep Disorders [facility]tr [facility] 132 [facility] [place] [phone] Lexie William DO 132 [facility] [place] [address] 05/23/2024 10:30 AM EST Office Visit Cardiology, [facility] 132 [facility] [place] [address] Catherine Jimenez CRNP 400 [facility] [place] [id number] Health Maintenance Due Date Last Done Comments [...] filedocumented as of this encounter Care Teams Fishing Vessel Captain Relationship Specialty Start Date End Date Ana Maria Rivera MD [address] [place] [address] PCP - General Family Medicine 04/08/23 documented as of this encounter
--- OUTSIDE RECORDS SUMMARY | 2024-05-29 04:18 | External Medical Summary | Summary of Care ---
Author Name Unknown Organization [facility] Address [address] [place] [address] Phone [phone] Care Team Providers Care Settlement Agent Name Role Phone Ana Maria Rivera MD Primary Care Provider [phone] Reason for Visit * Reason Onset Date Comments FYI 12/02/2023 Encounter Details Date Type Department Care Team (Late st Contact Info) Description 12/02/2023 Telephone Family Practice [facility] [place] 200 [place] [address] Ana Maria Rivera MD 200 [place] [address] FYI Allergies No known active allergiesdocumented as [...] 30 Mcg, IM, 12 yrs and above ([employer]) 03/24/2022,09/26/2021 Pneumococcal Conjugate Vacc, 13 Valent (Prevnar) [...] easily able to go to urologist in [place] on the due to distance. But is goingto try. He fears his lack of records may be an issue. Spoke to him about asking for a [employer] appt on fast pass. Talked with urology, [...] [address] [place] [address] [place] [address] Adrianna Galvez PA-C [address] [place] [address] [place] [address] 12/27/2023 2:15 PM EDT Office Visit Dermatology [facility] [address] Yusef Browne MD [address] [facility] [place] [place] [address] 01/07/2024 11:20 AM EDT Office Visit Family Practice [facility] [address] [facility] [place] [place] [address] Ana Maria Rivera MD [facility] [place] [place] [address] 05/05/2024 10:40 AM EST Office Visit Sleep Disorders Ctr [facility] 132 [facility] [place] [phone] Lexie William DO 132 [facility] [place] [address] 05/23/2024 10:30 AM EST Office Visit Cardiology, [facility] 132 [facility] [place] [address] Catherine Jimenez CRNP [address] [place] [address] [phone] Health Maintenance Due Date Last Done Comments [...] filedocumented as of this encounter Care Teams Settlement Agent Relationship Specialty Start Date End Date Ana Maria Rivera MD [address] [place] [address] PCP - General Family Medicine 04/08/23 documented as of this encounter
--- OUTSIDE RECORDS SUMMARY | 2024-05-29 04:18 | External Medical Summary | Summary of Care ---
Author Name Unknown Organization [facility] Address [address] [place] [address] Phone [phone] Care Team Providers Care Care Companion Name Role Phone Ana Maria Rivera MD Primary Care Provider [phone] Reason for Visit * Reason Comments Pacemaker Clinic Wound check Encounter Details Date Type Department Care Team (Latest Contact Info) Description 12/01/2023 9:30 AM EDT Cardiac Studies Cardiology, [facility] [address] [place] [address] [place], Pacer [facility] [address] [place] [address] Paroxysmal atrial fibrillation (HCC)*; Mobitz type II atrioventricular block; Cardiac pacemaker in situ Allergies No known active allergiesdocumented as of this encounter (statuses as of 12/01/2023) Medications Medication Sig Dispensed Refills Start Date [...] as of this encounter (statuses as of 12/01/2023) Active Problems Problem Noted Date Diagnosed Date Other insomnia 10/08/2023 Chronic constipation 10/08/2023 Mobitz type II atrioventricular block 10/08/2023 Paroxysmal atrial fibrillation 04/08/2023 Status post biventricular pacemaker 04/08/2023 Atonic bladder 04/08/2023 Pure hypercholesterolemia 04/08/2023 LILLIAM on CPAP 04/08/2023 Lower extremity edema 04/08/2023 Hypertension goal BP (blood pressure) < 140/90 1 documented as of this encounter (statuses as of 12/01/2023) Immunizations Name Administration Dates Next Due COVID-19 mRNA, LNP-s, No Pre serve, 2-Dose Series (Moderna) 05/08/2021,08/16/2020,06/29/2020 Covid-19, Mrna, Lnp-s, Pf, B ivalent, 30 Mcg, IM, 12 yrs and above ([email or web address]) 03/24/2022,09/26/2021 Pneumococcal Conjugate Vacc, 13 Valent (Prevnar) [...] as of this encounter Progress Notes * Fanny Hillman, JACQUELINE - 12/01/2023 10:08 AM EDT Patient and implanted device were evaluated today in the [facility]. Providers please see scanned report in the Scans tab. Duoderm dressing removed. Left pectoral device pocket appears to be healing. No drainage is noted. Incision edges are in approximation. No ecchymosis is noted. Area is soft to palpation. Area cleansed with chlora prep. After dry Sure prep applied to surrounding skin avoiding incision. Steri strips applied. Patient teaching about new devices and device follow explained. Please make sure you diet is rich in fruits, vegetables, and healthy protein to promote proper healing. You can supplement with Boost or Ensure protein drinks. Do not lift any object over 10 pounds. Do not raise your elbow on the incision side above shoulder level in a repetitive manner. This gives the device lead wires time to attach securely inside your heart. Cleanse area with antibacterial soap and pat dry Please inspect your incision every day. Report any changes to the Device Clinic nurse, you should not have any drainage, redness, open areas or scabs. Advoidance of dental procedures for 6 months Carry an ID card that contains information about your pacemaker. You can show this card if your pacemaker sets off a metal detector. You should also show it to avoid screening with a hand-held security wand. Keep your cell phone away from your pacemaker. Don't carry the phone in your shirt pocket, even when it's turned off. Avoid strong magnets. Examples are those used in MRIs or in hand-held security wands. Avoid strong electrical parr. Examples are those made by radio transmitting towers, ham radios, and heavy-duty electrical equipment. Avoid leaning over the open greenwood of a running car. A running engine creates an electrical field. documented in this encounter Plan of Treatment Upcoming Encounters Date Type Department Care Team (Late st Contact Info) Description 12/24/2023 11:00 AM EDT Office Visit Urology [facility] [address] [place] [address] [place] [address] Adrianna Galvez PA-C [address] [place] [address] [place] [address] 12/27/2023 2:15 PM EDT Office Visit Dermatology [facility] [address] [place] [address] Yusef Browne MD 200 [place] [address] 01/07/2024 11:20 AM EDT Office Visit Family Practice [facility] [address] [place] [address] Ana Maria Rivera MD 200 [facility] [place] [address] 05/05/2024 10:40 AM EST Office Visit Sleep Disorders Ctr [facility] 132 [facility] [place] [phone] Lexie William DO 132 [place] [address] 05/23/2024 10:30 AM EST [facility] 132 [facility] [place] [address] Catherine Jimenez CRNP [address] [place] [address] Scheduled Orders Name Type Priority Associated Diagnoses Orde r Schedule POSTOP F-UP VISIT IN GLOBAL Procedures Routine Paroxysmal atrial fibrillation (HCC) Mobitz type II atrioventricular block Cardiac pacemaker in situ Ordered: 12/01/2023 Health Maintenance Due Date Last Done Comments [...] atrioventricular block Mobitz (type) II atrioventricular block Cardiac pacemaker in situ documented in this encounter Care Teams Care Companion Relationship Specialty Start Date End Date Ana Maria Rivera MD [address] [place], [place] [address] PCP - General Family Medicine 04/08/23 documented as of this encounter
[2024-05-29 07:58] VITALS: RESP 18
[2024-05-29 10:04] LABS: Basophils # (auto) 0.01 K/uL (0.00-0.20); Basophils % (auto) 0.2 %; Hematocrit (blood only) 35.2 % (42.0-52.0); Hemoglobin 11.5 g/dl (14.0-18.0); Immature Granulocytes # (auto) 0.01 K/uL (0.01-0.20); Immature Granulocytes % (auto) 0.2 %; Lymphocytes % (auto) 17.5 %; Mean Corpuscular Hemoglobin 29.1 pg (25.0-34.0); Mean Corpuscular Hgb Conc 32.7 g/dL (32.0-36.0); Mean Corpuscular Volume 89.1 fL (80.0-100.0); Mean Platelet Volume 10.6 fL (9.4-12.4); Monocytes # (auto) 0.72 K/uL (0.11-0.59); Monocytes % (auto) 15.8 %; Neutrophils # (auto) 3.03 K/uL (1.40-6.50); Neutrophils % (auto) 66.3 %; Platelet Count 148 K/uL (130-400); RDW Coefficient of Variation 14.3 % (11.5-14.5); RDW Standard Deviation 46.5 fL (36.4-46.3); Red Blood Count 3.95 M/uL (4.70-6.10); White Blood Count 4.57 K/ul (4.8-10.8)
[2024-05-29 10:13] LABS: BUN Creatinine Ratio 20.8 (10-20); Calcium 8.5 mg/dl (8.6-10.3); Creatinine Clr Calc Pharmacy 61.7 ml/min; Magnesium 2.1 mg/dl (1.7-2.4); Potassium 3.2 mmol/L (3.5-5.1)
[2024-05-29 11:45] VITALS: BP 120/68; TEMP 98.2
[2024-05-29 15:02] VITALS: O2SAT 96
--- NOTE | 2024-05-29 15:15 | Discharge Summary ---
Date of Service May 29, 2024 Admission HPI Per Admitting Provider 83-year-old male currently living at [facility] independent living with past medical history significant for hypercholesterolemia, obstructive sleep apnea on CPAP, paroxysmal atrial fibrillation, hypertension, 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 Patient is hard of hearing. But able to give his history. Patient says today morning he was achy and having disorientation and he says he straight caths and was worried about UTI and came to the hospital and found to have COVID. As per son patient is disoriented but he was coherent and was ambulating okay. Patient had bad UTIs in the past got and son got worried and brought him to the hospital. He was also having mild fevers. Patient currently denies any headache. Denies chest pain or shortness of breath. Denies nausea. Denies abdominal pain. Normal bowel and bladder m ovements. Says he uses stool softener daily. Today his appetite was down, but it is coming back now. Hemodynamics are okay. Past medical history. As mentioned above Past surgical history. Bilateral knee arthroplasty. Inguinal hernia repair. Umbilical hernia repair. Social history. Currently being worked [place]. Quit smoking 1959. Alcohol occasional. No drug use. Family history. Father had arthritis. Hypertension. Admission Exam Per Admitting Provider General- Not in distress. Head- atraumatic Eyes- PERRL. ENT- oropharynx clear Neck- supple, no JVD. Lungs- clear to auscultation no wheezing or crackles. Heart- regular rhythm; no murmur, no gallop. Abdomen- normal bowel sounds, soft, nontender, no distension Extremities- no pretibial edema, no erythema seen Neuro- alert, oriented PERRL, no facial palsy; no dysarthria; moves extremities. Principal Diagnosis COVID infection Delirium Discharge Exam General- Not in distress. Head- atraumatic Eyes- PERRL. ENT- oropharynx clear Neck- supple, no JVD. Lungs- clear to auscultation no wheezing or crackles. Heart- regular rhythm; no murmur, no gallop. Abdomen- normal bowel sounds, soft, nontender, no distension Extremities- no pretibial edema, no erythema seen Neuro- alert, oriented PERRL, no facial palsy; no dysarthria; moves extremities. Discharge Data Allergies Allergy/AdvReac Type Severity Reaction Status Date / Time No Known Allergies Allergy Verified 11/24/23 09:04 Consultations 05/27/24 21:21 ED Decision to Admit Stat Hospital Course (1) Acute confusion: Plan 83-year-old male currently living at [facility] independent living with past medical history significant for hypercholesterolemia, obstructive sleep apnea on CPAP, paroxysmal atrial fibrillation, hypertension, 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 On presentation to the ED, patient was normotensive afebrile and saturating well on room air. Urinalysis was done to rule out UTI. Patient was treated with supportive care. Patient did not require any supplemental oxygen throughout the hospitalization. Chest x-ray did not reveal any pneumonia. Patient's delirium improved. Patient was discharged home with his son. Please note the above document was generated using voice recognition software. It may contain grammatical, syntax or spelling errors. Any formal questions or concerns about the content, text or information contained within the body of this dictation should be directly addressed to the provider for clarification Total Time Total Time Spent Total Time Spent (In Minutes): 45 Total Time Includes: Examination of the Patient, Discharge Planning, Medication Reconciliation, Communication With Other Providers and Other Discharge Plan Discharge Items Patient Disposition: Home - Self-Care Reason For Visit: CONFUSION, COVID Discharge Diagnosis: COVID-19 infection Activity: Resume your previous activity Non-emergency contact: Primary Care Provider Call non-emergency contact if: you have any medication questions Follow-up/Referrals: Ana Maria Rivera MD [Primary Care Provider] - Diet: Regular Addtl Attending Provider Instructions: You were admitted to the hospital for COVID-19 infection. The checks x-ray during the hospitalization did not show any pneumonia. Please wear face mask for next 10 days. Pending Studies at Discharge: No Stand-Alone Forms: My [employer], Smoking Cessation Medications and DC Order Prescriptions: Continued furosemide 40 mg tablet 40 mg PO DAILY carvedilol 25 mg tablet 25 mg PO BID atorvastatin 10 mg tablet 10 mg PO DAILY amlodipine 5 mg tablet 5 mg PO DAILY losartan 100 mg tablet 100 mg PO DAILY Xarelto 20 mg tablet 20 mg PO DAILY polyethylene glycol 3350 [Miralax] 17 gram Powder In Packet 17 g PO DAILY Admission Data Admit Date/Time: 05/28/24 00:09 Attending Provider: Keo Rosenbaum Admit Provider: Álvaro Bonilla Primary Care Provider: Ana Maria Rivera Other Providers: Álvaro Bonilla
[2024-05-29 15:53] VITALS: PULSE 62
--- NOTE | 2024-05-30 09:06 | Communication Note ---
Date of Service: May 30, 2024 By CMS guidelines, a determination that the admission or continued stay is not medically necessary has been made by a member of the UR committee and domenica craig for this hospital stay, therefore a Code 44 will be completed and the Inpatient admission will be changed to outpatient. Dr John Mazariegos Member UR Committee
== END 2024-05-29 16:45 | disposition home or self-care (01) | DRG 178 ==
LOC: ED 19:03 → 2W 05-28 00:09 → INTOOBSV 05-28 00:09 → 2W 05-28 01:15